=== PATIENT | male | born 1950 | race Caucasian/White ===

== ENCOUNTER 2017-03-17 02:08 | Inpatient (IN) | payer MEDICARE, BC ==
[2017-03-17] MEDS ORDERED: Sodium Chloride 0.9% 1,000 ML IV SCH ×3 (02:15→04:45)
[2017-03-17] MEDS ORDERED: Acetaminophen 325 MG Tab PO ONE (03:26)
--- NOTE | 2017-03-17 03:41 | EDM.PDOC ---
ED HPI GENERAL MEDICAL PROBLEM - General Chief Complaint: Abdominal Pain Stated Complaint: [facility] Time Seen by Provider: 03/17/17 03:39 Source of Information: Reports: Patient History Limitations: Reports: No Limitations - History of Present Illness INITIAL COMMENTS - FREE TEXT/NARRATIVE: pt arrived with a temp of 102. He has a history of necrotzing fascitis. Onset: Today, Gradual Duration: Hour(s): Location: Reports: Abdomen, Other (pt had pain in the left lower abdoman. ) Associated Symptoms: Reports: Fever/Chills, Weakness Abdominal Pain Score (Numeric/FACES): 5 - Related Data Allergies Allergy/AdvReac Type Severity Reaction Status Date / Time ciprofloxacin [From Cipro] Allergy Other Verified 03/17/17 02:16 sulfamethoxazole Allergy Rash Verified 03/17/17 02:16 [From Bactrim] trimethoprim [From Bactrim] Allergy Rash Verified 03/17/17 02:16 Past Medical History HEENT History: Reports: Impaired Vision Cardiovascular History: Reports: Afib, Arrhythmia, Heart Failure, Hypertension, Stents Respiratory History: Reports: COPD Genitourinary History: Reports: Chronic Renal Insuffiency, Other (See Below) Other Genitourinary History: sees a kidney specialist Musculoskeletal History: Reports: Other (See Below) Other Musculoskeletal History: necrotizing fasciitis right leg knee down to foot , has wrap on right leg for sores related to infection Endocrine/Metabolic History: Reports: Diabetes, Type II, Hypothyroidism, Obesity /BMI 30+ - Infectious Disease History Infectious Disease History: Reports: C-Difficile, Chicken Pox, MRSA, Mumps - Past Surgical History GI Surgical History: Reports: Colonoscopy, Hernia, Abdominal Dermatological Surgical History: Reports: Skin Graft Social & Family History - Tobacco Use Smoking Status *Q: Never Smoker - Caffeine Use Caffeine Use: Reports: None - Recreational Drug Use Recreational Drug Use: No ED ROS GENERAL - Review of Systems Review Of Systems: See Below Constitutional: Reports: Fever, Chills, Malaise HEENT: Reports: No Symptoms Respiratory: Reports: No Symptoms Cardiovascular: Reports: No Symptoms Endocrine: Reports: No Symptoms GI/Abdominal: Reports: Abdominal Pain, Other (pt has pain in the left lower abdoman, ) : Reports: No Symptoms Musculoskeletal: Reports: No Symptoms Skin: Reports: No Symptoms ED EXAM, GI/ABD - Physical Exam Exam: See Below Text/Narrative:: pt arrived chilling.he has a history of necrotizing fascitis of the rt leg. He still is dressing this on daily basis. He is having pain in his left lower abdoman. He has not vomited. Exam Limited By: No Limitations General Appearance: Alert, Moderate Distress Ears: Normal TMs Nose: Normal Inspection Throat/Mouth: Normal Inspection Head: Atraumatic Neck: Normal Inspection Respiratory/Chest: No Respiratory Distress Cardiovascular: Regular Rate, Rhythm, Tachycardia GI/Abdominal Exam: Soft, Other (he has a large ventral hernia that is reducable. He is tender in the left lower abdoman. ) (Male) Exam: Deferred Rectal (Males) Exam: Deferred Back Exam: Normal Inspection Extremities: Normal Inspection Neurological: Alert, Oriented, Normal Cognition, Other (pt is diaphoretic. ) Course - Vital Signs Last Recorded V/S: Last Vital Signs Temp 38.4 C H 03/17/17 02:13 Pulse 120 H 03/17/17 02:13 Resp 22 H 03/17/17 02:13 BP 173/69 H 03/17/17 02:13 Pulse Ox 94 L 03/17/17 02:13 - Orders/Labs/Meds Orders: Active Orders 24 hr Category Date Time Status Abdomen Pelvis wo Cont [CT] Stat Exams 03/17/17 03:06 Taken Chest 1V Frontal [CR] Stat Exams 03/17/17 03:51 Ordered CULTURE BLOOD [BC] Urgent Lab 03/17/17 02:15 Received CULTURE BLOOD [BC] Urgent Lab 03/17/17 02:25 Received Piperacillin/Tazobactam [Zosyn] 3.375 gm Med 03/17/17 04:45 Active Sodium Chloride 0.9% [Normal Saline] 50 ml IV Q6H Sodium Chloride 0.9% [Normal Saline] 1,000 ml Med 03/17/17 02:15 Active IV ASDIRECTED Sodium Chloride 0.9% [Normal Saline] 1,000 ml Med 03/17/17 02:15 Active IV ASDIRECTED Sodium Chloride 0.9% [Normal Saline] 1,000 ml Med 03/17/17 04:45 Active IV ASDIRECTED Blood Culture x2 Reflex Set [OM.PC] Urgent Oth 03/17/17 02:12 Ordered Medication Orders Sodium Chloride (Normal Saline) 1,000 mls @ 999 mls/hr IV ASDIRECTED JOHN Last Admin: 03/17/17 02:48 Dose: 999 mls/hr Sodium Chloride (Normal Saline) 1,000 mls @ 999 mls/hr IV ASDIRECTED JOHN Last Admin: 03/17/17 02:48 Dose: 999 mls/hr Sodium Chloride (Normal Saline) 1,000 mls @ 250 mls/hr IV ASDIRECTED JOHN Piperacillin Sod/Tazobactam (Sod 3.375 gm/ Sodium Chloride) 50 mls @ 100 mls/ hr IV Q6H [facility] Labs: Laboratory Tests 03/17/17 03/17/17 03/17/17 Range/Units 02:12 02:15 02:15 WBC 12.6 H (4.5-11.0) K/uL RBC 3.41 L (4.30-5.90) M/uL Hgb 10.5 L (12.0-15.0) g/dL Hct 33.2 L (40.0-54.0) % MCV 97 (80-98) fL MCH 31 (27-31) pg MCHC 32 (32-36) % Plt Count 122 L (150-400) K/uL Neut % (Auto) 90 H (36-66) % Lymph % (Auto) 4 L (24-44) % [place] % (Auto) 6 (2-6) % Eos % (Auto) 0 L (2-4) % Baso % (Auto) 0 (0-1) % Sodium 141 (140-148) mmol/L Potassium 5.7 H (3.6-5.2) mmol/L Chloride 108 (100-108) mmol/L Carbon Dioxide 21 (21-32) mmol/L Anion Gap 17.7 H (5.0-14.0) mmol/L BUN 61 H (7-18) mg/dL Creatinine 2.5 H (0.8-1.3) mg/dL Est Cr Clr Drug Dosing 30.96 mL/min Estimated GFR (MDRD) 26 L (>60) Glucose 190 H (74-106) mg/dL Lactic Acid (0.4-2.0) mmol/L Calcium 8.5 (8.5-10.1) mg/dL Total Bilirubin 0.3 (0.2-1.0) mg/dL AST 15 (15-37) U/L ALT 23 (12-78) U/L Alkaline Phosphatase 91 (46-116) U/L Total Protein 6.8 (6.4-8.2) g/dL Albumin 3.3 L (3.4-5.0) g/dL Globulin 3.5 (2.3-3.5) g/dL Albumin/Globulin Ratio 0.9 L (1.2-2.2) Lipase (73-393) U/L Urine Color Yellow Urine Appearance Clear Urine pH 5.0 (4.5-8.0) Ur Specific [place] 1.015 (1.008-1.030) Urine Protein 100 H (NEGATIVE) mg/dL Urine Glucose (UA) Normal (NEGATIVE) mg/dL Urine Ketones Negative (NEGATIVE) mg/dL Urine Occult Blood Large (NEGATIVE) Urine Nitrite Negative (NEGAITVE) Urine Bilirubin Negative (NEGATIVE) Urine Urobilinogen Normal (NORMAL) mg/dL Ur Leukocyte Esterase Negative (NEGATIVE) Urine RBC 0-5 (0-5) Urine WBC 0-5 (0-5) Ur Epithelial Cells Not seen Amorphous Sediment Not seen Urine Bacteria Not seen Urine Mucus Few Urine Other 03/17/17 03/17/17 Range/Units 02:15 03:24 WBC (4.5-11.0) K/uL RBC (4.30-5.90) M/uL Hgb (12.0-15.0) g/dL Hct (40.0-54.0) % MCV (80-98) fL MCH (27-31) pg MCHC (32-36) % Plt Count (150-400) K/uL Neut % (Auto) (36-66) % Lymph % (Auto) (24-44) % [place] % (Auto) (2-6) % Eos % (Auto) (2-4) % Baso % (Auto) (0-1) % Sodium (140-148) mmol/L Potassium (3.6-5.2) mmol/L Chloride (100-108) mmol/L Carbon Dioxide (21-32) mmol/L Anion Gap (5.0-14.0) mmol/L BUN (7-18) mg/dL Creatinine (0.8-1.3) mg/dL Est Cr Clr Drug Dosing mL/min Estimated GFR (MDRD) (>60) Glucose (74-106) mg/dL Lactic Acid 1.0 (0.4-2.0) mmol/L Calcium (8.5-10.1) mg/dL Total Bilirubin (0.2-1.0) mg/dL AST (15-37) U/L ALT (12-78) U/L Alkaline Phosphatase (46-116) U/L Total Protein (6.4-8.2) g/dL Albumin (3.4-5.0) g/dL Globulin (2.3-3.5) g/dL Albumin/Globulin Ratio (1.2-2.2) Lipase 182 (73-393) U/L Urine Color Urine Appearance Urine pH (4.5-8.0) Ur Specific [place] (1.008-1.030) Urine Protein (NEGATIVE) mg/dL Urine Glucose (UA) (NEGATIVE) mg/dL Urine Ketones (NEGATIVE) mg/dL Urine Occult Blood (NEGATIVE) Urine Nitrite (NEGAITVE) Urine Bilirubin (NEGATIVE) Urine Urobilinogen (NORMAL) mg/dL Ur Leukocyte Esterase (NEGATIVE) Urine RBC (0-5) Urine WBC (0-5) Ur Epithelial Cells Amorphous Sediment Urine Bacteria Urine Mucus Urine Other Meds: Medications Generic Name Dose Route Start Last Admin Trade Name Freq PRN Reason Stop Dose Admin Sodium Chloride 1,000 mls @ 999 mls/hr 03/17/17 02:15 03/17/17 02:48 Normal Saline IV 999 mls/hr ASDIRECTED JOHN Administration Sodium Chloride 1,000 mls @ 999 mls/hr 03/17/17 02:15 03/17/17 02:48 Normal Saline IV 999 mls/hr ASDIRECTED JOHN Administration Sodium Chloride 1,000 mls @ 250 mls/hr 03/17/17 04:45 Normal Saline IV ASDIRECTED JOHN Piperacillin Sod/Tazobactam 50 mls @ 100 mls/hr 03/17/17 04:45 Sod 3.375 gm/ Sodium Chloride IV Q6H JOHN Discontinued Medications Generic Name Dose Route Start Last Admin Trade Name Freq PRN Reason Stop Dose Admin Acetaminophen 650 mg 03/17/17 03:26 03/17/17 03:56 Tylenol PO 03/17/17 03:27 650 mg NOW ONE Administration - Re-Assessments/Exams Free Text/Narrative Re-Assessment/Exam: 03/17/17 04:31 pt had a wbc of 12,500. He has a k of 5.7. His crearnine is 2.5. We do not have previous labs.His temp is coming down. He was given 2 liters of fluid and then the iv was run at 250. Will start zosyn at this point. Departure - Departure Time of Disposition: 04:35 Disposition: Admitted As Inpatient 66 Condition: Fair Clinical Impression: Sepsis, Renal insufficiency, Hyperkalemia - Discharge Information Referrals: PCP,None [Primary Care Provider] - Forms: ED Department Discharge Care Plan Goals: admit for antibiotic therapy. - My Orders Last 24 Hours: My Active Orders 03/17/17 02:12 Blood Culture x2 Reflex Set [OM.PC] Urgent 03/17/17 02:15 CULTURE BLOOD [BC] Urgent Sodium Chloride 0.9% [Normal Saline] 1,000 ml IV ASDIRECTED Sodium Chloride 0.9% [Normal Saline] 1,000 ml IV ASDIRECTED 03/17/17 02:25 CULTURE BLOOD [BC] Urgent 03/17/17 03:06 Abdomen Pelvis wo Cont [CT] Stat 03/17/17 03:51 Chest 1V Frontal [CR] Stat 03/17/17 04:45 Piperacillin/Tazobactam [Zosyn] 3.375 gm Sodium Chloride 0.9% [Normal Saline] 50 ml IV Q6H Sodium Chloride 0.9% [Normal Saline] 1,000 ml IV ASDIRECTED - Assessment/Plan Last 24 Hours: My Active Orders 03/17/17 02:12 Blood Culture x2 Reflex Set [OM.PC] Urgent 03/17/17 02:15 CULTURE BLOOD [BC] Urgent Sodium Chloride 0.9% [Normal Saline] 1,000 ml IV ASDIRECTED Sodium Chloride 0.9% [Normal Saline] 1,000 ml IV ASDIRECTED 03/17/17 02:25 CULTURE BLOOD [BC] Urgent 03/17/17 03:06 Abdomen Pelvis wo Cont [CT] Stat 03/17/17 03:51 Chest 1V Frontal [CR] Stat 03/17/17 04:45 Piperacillin/Tazobactam [Zosyn] 3.375 gm Sodium Chloride 0.9% [Normal Saline] 50 ml IV Q6H Sodium Chloride 0.9% [Normal Saline] 1,000 ml IV ASDIRECTED
[2017-03-17] MEDS ORDERED: Piperacillin/Tazobactam 3.375 GM in Sodium Chloride 0.9% 50 ML IV SCH ×2 (04:45→12:00)
[2017-03-17] MEDS ORDERED: Ondansetron 4 MG Tab.DIS PO PRN (05:03)
--- NOTE | 2017-03-17 05:19 | PCM.HP ---
H&P History of Present Illness - General Date of Service: 03/17/17 Admit Problem/Dx: Admission Diagnosis/Problem Admission Diagnosis/Problem Sepsis Sepsis Source of Information: Patient History Limitations: Reports: No Limitations - History of Present Illness Initial Comments - Free Text/Narative: 66-year-old male with past medical history of necrotizing fasciitis status post surgical debridement 8 years ago with a recurrent leg infections, CAD status post 3 stents last a stent placed 14 years ago following with cardiology , CKD with baseline creatinine is 2.4 following with nephrology, diabetes on insulin, hyperlipidemia, hypertension, atrial fibrillation on Coumadin 10 mg on Friday and 5 mg on , Friday, Friday, Friday, GERD, obesity came to the ED with the complaining of right leg pain and the left lower quadrant pain which started since yesterday morning. Patient reports that the pain is 4-5/10 intensity in the abdomen. Patient also had 2-3 episodes of vomiting. Patient denies any diarrhea, constipation. Patient denies any chest pain, exertional chest pain, breathing difficulty, headaches, dizziness, palpitations, orthopnea, PND. Patient is passing gas. Denies any blood in the stool, blood in the urine. Patient reports that his leg pain is the same 3-4/10 intensity has drainage from the tip of the middle three fingers. No significant redness is noted. Patient had multiple hospital admissions with right leg infection last admission was 1 month ago and diagnosed with septicemia. In the ED patient had lab work which showed WBC count is elevated but lactic acid is 1.0. Patient received fluid resuscitation in the ED and started him on Zosyn. Patient CODE STATUS is full code. Other review of systems are not significant. Abdominal Pain Score (Numeric/FACES): 5 - Related Data Allergies/Adverse Reactions: Allergies Allergy/AdvReac Type Severity Reaction Status Date / Time ciprofloxacin [From Cipro] Allergy Other Verified 03/17/17 02:16 sulfamethoxazole Allergy Rash Verified 03/17/17 02:16 [From Bactrim] trimethoprim [From Bactrim] Allergy Rash Verified 03/17/17 02:16 Home Medications: Home Meds Acetaminophen 500 mg PO Q6H PRN 03/17/17 [History] Albuterol [Ventolin HFA] 03/17/17 [History] Allopurinol [Zyloprim] 300 mg PO DAILY 03/17/17 [History] Ascorbic Acid [Vitamin C] 500 mg PO ASDIRECTED 03/17/17 [History] Aspirin 325 mg PO DAILY 03/17/17 [History] Benazepril [Lotensin] 5 mg PO DAILY 03/17/17 [History] Cholecalciferol (Vitamin D3) [Vitamin D3] 10,000 unit PO DAILY 03/17/17 [History ] Ferrous Sulfate 324 mg PO BID 03/17/17 [History] Furosemide [Lasix] 40 mg PO BID 03/17/17 [History] Insulin Aspart [Novolog Flexpen] 15 units SUBCNJ TIDAC 03/17/17 [History] Insulin Glarg,Human.Rec.Analog [Lantus Solostar] 30 units SUBCNJ BEDTIME [History] Levothyroxine 75 mcg PO DAILY 03/17/17 [History] Metoprolol Succinate [Toprol XL 100mg] 100 mg PO BID 03/17/17 [History] Multivitamin [Multivitamins] 1 tab PO DAILY 03/17/17 [History] Omeprazole 20 mg PO DAILY 03/17/17 [History] Pravastatin [Pravachol] 40 mg PO DAILY 03/17/17 [History] Sodium Bicarbonate 1,300 mg PO BID 03/17/17 [History] Triamcinolone Acetonide [Kenalog 0.1% Crm] 1 appful TOP ASDIRECTED 03/17/17 [ History] amLODIPine [Norvasc] 5 mg PO DAILY 03/17/17 [History] cloNIDine HCl [Catapres] 1.2 mg PO BID 03/17/17 [History] Past Medical History HEENT History: Reports: Impaired Vision Cardiovascular History: Reports: Afib, Arrhythmia, Heart Failure, Hypertension, Stents Respiratory History: Reports: COPD Genitourinary History: Reports: Chronic Renal Insuffiency, Other (See Below) Other Genitourinary History: sees a kidney specialist Musculoskeletal History: Reports: Other (See Below) Other Musculoskeletal History: necrotizing fasciitis right leg knee down to foot , has wrap on right leg for sores related to infection Endocrine/Metabolic History: Reports: Diabetes, Type II, Hypothyroidism, Obesity /BMI 30+ - Infectious Disease History Infectious Disease History: Reports: C-Difficile, Chicken Pox, MRSA, Mumps - Past Surgical History GI Surgical History: Reports: Colonoscopy, Hernia, Abdominal Dermatological Surgical History: Reports: Skin Graft Social & Family History - Tobacco Use Smoking Status *Q: Never Smoker - Caffeine Use Caffeine Use: Reports: None - Recreational Drug Use Recreational Drug Use: No H&P Review of Systems - Review of Systems: Review Of Systems: See Below General: Reports: Fever, Chills, Malaise Pulmonary: Denies: Shortness of Breath, Wheezing Cardiovascular: Denies: Chest Pain, Palpitations, Dyspnea on Exertion, Orthopnea , PND Gastrointestinal: Reports: Abdominal Pain, Nausea, Vomiting. Denies: Anorexia, Black Stool, Bloody Stool, Constipation, Diarrhea, Decreased Appetite, Mucous in Stool Genitourinary: Denies: Dysuria, Frequency, Burning Musculoskeletal: Denies: Neck Pain, Shoulder Pain Skin: Denies: Cyanosis, Jaundice Psychiatric: Denies: Confusion, Depression Hematologic/Lymphatic: Denies: Anemia, Easy Bleeding Immunologic: Denies: Anaphylaxis Exam - Exam Exam: See Below - Vital Signs Vital Signs: Last Vital Signs Temp 37.7 C 03/17/17 04:46 Pulse 123 H 03/17/17 04:46 Resp 21 H 03/17/17 04:46 BP 138/57 L 03/17/17 04:46 Pulse Ox 94 L 03/17/17 02:13 Weight: 137.892 kg - Exam Quality Assessment: No: Supplemental Oxygen General: Alert, Oriented Neck: Supple Lungs: Clear to Auscultation, Normal Respiratory Effort Cardiovascular: No: Regular Rate, Regular Rhythm, Tachycardia GI/Abdominal Exam: Normal Bowel Sounds, Soft, Non-Tender, No Abnormal Bruit, No Mass. No: Guarding, Rigid, Rebound Extremities: Other (Wound dressing is in place on right lower extremity, necrotizing fascitis status post surgical debridement) - Patient Data Lab Results Last 24 hrs: Laboratory Results - last 24 hr 03/17/17 03/17/17 03/17/17 Range/Units 02:12 02:15 02:15 WBC 12.6 H (4.5-11.0) K/uL RBC 3.41 L (4.30-5.90) M/uL Hgb 10.5 L (12.0-15.0) g/dL Hct 33.2 L (40.0-54.0) % MCV 97 (80-98) fL MCH 31 (27-31) pg MCHC 32 (32-36) % Plt Count 122 L (150-400) K/uL Neut % (Auto) 90 H (36-66) % Lymph % (Auto) 4 L (24-44) % [place]ender % (Auto) 6 (2-6) % Eos % (Auto) 0 L (2-4) % Baso % (Auto) 0 (0-1) % PT (9.5-12.0) sec INR (0.80-1.20) Sodium 141 (140-148) mmol/L Potassium 5.7 H (3.6-5.2) mmol/L Chloride 108 (100-108) mmol/L Carbon Dioxide 21 (21-32) mmol/L Anion Gap 17.7 H (5.0-14.0) mmol/L BUN 61 H (7-18) mg/dL Creatinine 2.5 H (0.8-1.3) mg/dL Est Cr Clr Drug Dosing 30.96 mL/min Estimated GFR (MDRD) 26 L (>60) Glucose 190 H (74-106) mg/dL Lactic Acid (0.4-2.0) mmol/L Calcium 8.5 (8.5-10.1) mg/dL Total Bilirubin 0.3 (0.2-1.0) mg/dL AST 15 (15-37) U/L ALT 23 (12-78) U/L Alkaline Phosphatase 91 (46-116) U/L Total Protein 6.8 (6.4-8.2) g/dL Albumin 3.3 L (3.4-5.0) g/dL Globulin 3.5 (2.3-3.5) g/dL Albumin/Globulin Ratio 0.9 L (1.2-2.2) Lipase (73-393) U/L Urine Color Yellow Urine Appearance Clear Urine pH 5.0 (4.5-8.0) Ur Specific [place] 1.015 (1.008-1.030) Urine Protein 100 H (NEGATIVE) mg/dL Urine Glucose (UA) Normal (NEGATIVE) mg/dL Urine Ketones Negative (NEGATIVE) mg/dL Urine Occult Blood Large (NEGATIVE) Urine Nitrite Negative (NEGAITVE) Urine Bilirubin Negative (NEGATIVE) Urine Urobilinogen Normal (NORMAL) mg/dL Ur Leukocyte Esterase Negative (NEGATIVE) Urine RBC 0-5 (0-5) Urine WBC 0-5 (0-5) Ur Epithelial Cells Not seen Amorphous Sediment Not seen Urine Bacteria Not seen Urine Mucus Few Urine Other 03/17/17 03/17/17 03/17/17 Range/Units 02:15 03:24 04:40 WBC (4.5-11.0) K/uL RBC (4.30-5.90) M/uL Hgb (12.0-15.0) g/dL Hct (40.0-54.0) % MCV (80-98) fL MCH (27-31) pg MCHC (32-36) % Plt Count (150-400) K/uL Neut % (Auto) (36-66) % Lymph % (Auto) (24-44) % Pender % (Auto) (2-6) % Eos % (Auto) (2-4) % Baso % (Auto) (0-1) % PT 29.4 H (9.5-12.0) sec INR 2.64 H (0.80-1.20) Sodium (140-148) mmol/L Potassium (3.6-5.2) mmol/L Chloride (100-108) mmol/L Carbon Dioxide (21-32) mmol/L Anion Gap (5.0-14.0) mmol/L BUN (7-18) mg/dL Creatinine (0.8-1.3) mg/dL Est Cr Clr Drug Dosing mL/min Estimated GFR (MDRD) (>60) Glucose (74-106) mg/dL Lactic Acid 1.0 (0.4-2.0) mmol/L Calcium (8.5-10.1) mg/dL Total Bilirubin (0.2-1.0) mg/dL AST (15-37) U/L ALT (12-78) U/L Alkaline Phosphatase (46-116) U/L Total Protein (6.4-8.2) g/dL Albumin (3.4-5.0) g/dL Globulin (2.3-3.5) g/dL Albumin/Globulin Ratio (1.2-2.2) Lipase 182 (73-393) U/L Urine Color Urine Appearance Urine pH (4.5-8.0) Ur Specific [place] (1.008-1.030) Urine Protein (NEGATIVE) mg/dL Urine Glucose (UA) (NEGATIVE) mg/dL Urine Ketones (NEGATIVE) mg/dL Urine Occult Blood (NEGATIVE) Urine Nitrite (NEGAITVE) Urine Bilirubin (NEGATIVE) Urine Urobilinogen (NORMAL) mg/dL Ur Leukocyte Esterase (NEGATIVE) Urine RBC (0-5) Urine WBC (0-5) Ur Epithelial Cells Amorphous Sediment Urine Bacteria Urine Mucus Urine Other Result Diagrams: 03/17/17 02:15 03/17/17 02:15 *Q Meaningful Use (ADM) - VTE *Q VTE Criteria *Q: - Stroke *Q Stroke Criteria *Q: - AMI *Q AMI Criteria *Q: - Problem List (1) Abdominal pain SNOMED Code(s): 56245138 ICD Code: R10.9 - UNSPECIFIED ABDOMINAL PAIN Status: Acute Current Visit : Yes (2) Right leg pain SNOMED Code(s): 246136555 ICD Code: M79.604 - PAIN IN RIGHT LEG Status: Acute Current Visit: Yes (3) Necrotizing fasciitis SNOMED Code(s): 23129397 ICD Code: M72.6 - NECROTIZING FASCIITIS Status: Acute Current Visit: Yes (4) Fever chills SNOMED Code(s): 678845902 ICD Code: R50.9 - FEVER, UNSPECIFIED Status: Acute Current Visit: Yes (5) CKD (chronic kidney disease) SNOMED Code(s): 032887609 ICD Code: N18.9 - CHRONIC KIDNEY DISEASE, UNSPECIFIED Status: Acute Current Visit: Yes (6) CAD (coronary artery disease) SNOMED Code(s): 44400449 ICD Code: I25.10 - ATHSCL HEART DISEASE OF [place] CORONARY ARTERY W/O ANG PCTRS Status: Acute Current Visit: Yes (7) AF (atrial fibrillation) SNOMED Code(s): 53056460 ICD Code: I48.91 - UNSPECIFIED ATRIAL FIBRILLATION Status: Acute Current Visit: Yes (8) DM (diabetes mellitus) SNOMED Code(s): 55153614 ICD Code: E11.9 - TYPE 2 DIABETES MELLITUS WITHOUT COMPLICATIONS Status: Acute Current Visit: Yes (9) Hyperlipemia SNOMED Code(s): 25828094 ICD Code: E78.5 - HYPERLIPIDEMIA, UNSPECIFIED Status: Acute Current Visit : Yes (10) GERD (gastroesophageal reflux disease) SNOMED Code(s): 302594164 ICD Code: K21.9 - GASTRO-ESOPHAGEAL REFLUX DISEASE WITHOUT ESOPHAGITIS Status: Acute Current Visit: Yes (11) Sepsis SNOMED Code(s): 30015027 ICD Code: A41.9 - SEPSIS, UNSPECIFIED ORGANISM Status: Acute Current Visit: Yes Problem List Initiated/Reviewed/Updated: Yes Orders Last 24hrs: Active Orders 24 hr Category Date Time Status Patient Status [ADT] Routine ADT 03/17/17 05:04 Ordered Cardiac Monitoring [RC] CONTINUOUS Care 03/17/17 05:05 Ordered Height and Weight [RC] DAILY Care 03/17/17 05:03 Ordered Intake and Output [RC] QSHIFT Care 03/17/17 05:05 Ordered Notify Provider Consults [RC] ASDIRECTED Care 03/17/17 05:10 Ordered Oxygen Therapy [RC] PRN Care 03/17/17 05:04 Ordered Pulse Oximetry [RC] CONTINUOUS Care 03/17/17 05:05 Ordered VTE/DVT Education [RC] Per Unit Routine Care 03/17/17 05:04 Ordered Vital Signs [RC] Q4H Care 03/17/17 05:04 Ordered Consult to Pharmacy [CONS] Routine Cons 03/17/17 05:14 Ordered Consult to Physician [CONS] Routine Cons 03/17/17 05:08 Ordered OT Evaluation and Treatment [CONS] Routine Cons 03/17/17 05:08 Ordered PT Evaluation and Treatment [CONS] Routine Cons 03/17/17 05:08 Ordered 2 Gram Sodium Diet [DIET] Diet 03/17/17 Breakfast Ordered Abdomen Pelvis wo Cont [CT] Stat Exams 03/17/17 03:06 Taken Chest 1V Frontal [CR] Stat Exams 03/17/17 03:51 Taken CBC WITH AUTO DIFF [HEME] AM Lab 03/18/17 05:11 Ordered COMPREHENSIVE METABOLIC PN,CMP [CHEM] AM Lab 03/18/17 05:11 Ordered CREATINE KINASE,CK [CHEM] Stat Lab 03/17/17 05:03 Ordered CULTURE BLOOD [BC] Urgent Lab 03/17/17 02:15 Received CULTURE BLOOD [BC] Urgent Lab 03/17/17 02:25 Received INR,PT,PROTHROMBIN TIME [COAG] Routine Lab 03/18/17 05:11 Ordered MAGNESIUM [CHEM] Routine Lab 03/17/17 05:03 Ordered Acetaminophen/HYDROcodone [[place] 325-5 MG] Med 03/17/17 05:03 Ordered 1 tab PO Q4H PRN Docusate Sodium/Sennosides [Senna Plus] Med 03/17/17 05:03 Ordered 1 tab PO BID PRN Heparin Sodium Med 03/17/17 05:15 Ordered 5,000 units SUBCUT Q8H Insulin Detemir [Levemir] Med 03/17/17 21:00 Ordered 15 unit SUBCUT BEDTIME Insulin Lispro [HumaLOG] Med 03/17/17 07:30 Ordered See Protocol SUBCUT BIDAC Ondansetron [Zofran ODT] Med 03/17/17 05:03 Ordered 4 mg PO Q6H PRN Piperacillin/Tazobactam [Zosyn] 3.375 gm Med 03/17/17 04:45 Active Sodium Chloride 0.9% [Normal Saline] 50 ml IV Q6H Sodium Chloride 0.9% [Normal Saline] 1,000 ml Med 03/17/17 02:15 Active IV ASDIRECTED Sodium Chloride 0.9% [Normal Saline] 1,000 ml Med 03/17/17 02:15 Active IV ASDIRECTED Sodium Chloride 0.9% [Normal Saline] 1,000 ml Med 03/17/17 04:45 Active IV ASDIRECTED Vancomycin 1 gm Med 03/17/17 06:00 Ordered Sodium Chloride 0.9% [Normal Saline] 250 ml IV Q24H Blood Culture x2 Reflex Set [OM.PC] Urgent Oth 03/17/17 02:12 Ordered Resuscitation Status Routine Resus Stat 03/17/17 05:03 Ordered Medication Orders Hydrocodone Bitart/Acetaminophen ([place] 325-5 Mg) 1 tab PO Q4H PRN PRN Reason: Pain (moderate 4-6) Heparin Sodium (Porcine) (Heparin Sodium) 5,000 units SUBCUT Q8H JOHN Sodium Chloride (Normal Saline) 1,000 mls @ 150 mls/hr IV ASDIRECTED JOHN Last Admin: 03/17/17 02:48 Dose: 999 mls/hr Sodium Chloride (Normal Saline) 1,000 mls @ 999 mls/hr IV ASDIRECTED JOHN Last Admin: 03/17/17 02:48 Dose: 999 mls/hr Sodium Chloride (Normal Saline) 1,000 mls @ 250 mls/hr IV ASDIRECTED JOHN Last Admin: 03/17/17 04:00 Dose: 250 mls/hr Piperacillin Sod/Tazobactam (Sod 3.375 gm/ Sodium Chloride) 50 mls @ 100 mls/ hr IV Q6H [facility] Last Admin: 03/17/17 05:07 Dose: 100 mls/hr Vancomycin HCl 1 gm/ Sodium (Chloride) 250 mls @ 150 mls/hr IV Q24H [facility] Insulin Detemir (Levemir) 15 unit SUBCUT BEDTIME [facility] Insulin Human Lispro (Humalog) 0 unit SUBCUT BIDAC [facility] PRN Reason: Protocol Ondansetron HCl (Zofran Odt) 4 mg PO Q6H PRN PRN Reason: Nausea able to take PO Senna/Docusate Sodium (Senna Plus) 1 tab PO BID PRN PRN Reason: Constipation Assessment/Plan Comment:: 66-year-old male with past medical history of necrotizing fasciitis status post surgical debridement 8 years ago with a recurrent leg infections, CAD status post 3 stents last a stent placed 14 years ago following with cardiology , CKD with baseline creatinine is 2.4 following with nephrology, diabetes on insulin, hyperlipidemia, hypertension, atrial fibrillation on Coumadin 10 mg on Friday and 5 mg on , Friday, Friday, Friday, GERD, obesity came to the ED with the complaining of right leg pain and the left lower quadrant pain and admitted with sepsis (1) Abdominal pain (2) Right leg pain (11) Sepsis (3) Necrotizing fasciitis (4) Fever chills Unknown etiology, WBC count is elevated seems like leg infection Will start him on Zosyn, vancomycin CT abdomen pelvis is at baseline no acute infective signs are noted We'll continue fluid resuscitation Repeat CBC CMP tomorrow Will follow blood cultures, urine culture Consulted surgery for wound care Consulted PT and OT (5) CKD (chronic kidney disease) (6) CAD (coronary artery disease) (7) AF (atrial fibrillation) (9) Hyperlipemia Will continue home medications Will continue Coumadin at this point (8) DM (diabetes mellitus) Patient has been on 30 units of Lantus and 15 untis of lispro with each meals Will place him on 15 units of Lantus at bedtime with low-dose sliding scale insulin (10) GERD (gastroesophageal reflux disease) Will continue home medications DVT prophylaxis Coumadin CODE STATUS full code IV fluids NS 150 mL per hour Diet 2 g low sodium diet GI prophylaxis pantoprazole 40 mg daily
[2017-03-17] MEDS ORDERED: Warfarin 5 MG Tab PO SCH ×4 (05:45→16:00)
[2017-03-17] MEDS ORDERED: Heparin Sodium 5,000 Units/ML Vial SUBCUT SCH (06:00)
[2017-03-17] MEDS ORDERED: Insulin Lispro 100 Units/ML 3 ML Vial SUBCUT SCH (07:30)
[2017-03-17] MEDS: Metoprolol Succinate 50 MG Tab.ER PO SCH ×3 (08:31→20:04)
[2017-03-17] MEDS: Acetaminophen 500 MG Tab PO PRN ×2 (08:55→18:36)
[2017-03-17] MEDS: Pantoprazole 40 MG Tab.CR PO SCH (08:56)
[2017-03-17] MEDS: Insulin Aspart 100 Units/ML 3 ML Pen SUBCUT SCH ×5 (08:59→23:01)
[2017-03-17] MEDS: Linezolid 600 MG in Premix Bag 1 BAG IV SCH ×2 (08:59→20:05)
[2017-03-17] MEDS ORDERED: Metoprolol Succinate 50 MG Tab.ER PO SCH (09:00)
[2017-03-17] MEDS ORDERED: Non-Formulary Medication 1 Each (Aspirin [Aspirin] 325 MG) PO SCH (11:30)
--- NOTE | 2017-03-17 11:50 | PCM.PN ---
- General Info Date of Service: 03/17/17 Subjective Update: Mr. Epstein is a 66-year-old gentleman who was admitted early this morning with cellulitis of his right lower extremity and sepsis. He has a history of recurrent infections in his right lower extremity including necrotizing fasciitis. He is also had a history of MRSA infection in the leg. He developed increased pain in the leg associated with fever and weakness as well as pain in the abdomen. White blood cell count was found to be elevated, lactic acid level within normal range. Did have elevation in heart rate, but stable blood pressure. CT scan of the abdomen showed no evidence of intra-abdominal infection. He was started on broad-spectrum IV antibiotic therapy after cultures were obtained. This morning is been seen by Dr. Thomas and dressing placed on the leg plan for daily dressing changes. Functional Status: Reports: Pain Controlled, Tolerating Diet - Review of Systems General: Reports: Fever, Weakness Pulmonary: Reports: No Symptoms Cardiovascular: Reports: No Symptoms Gastrointestinal: Reports: No Symptoms Musculoskeletal: Reports: Leg Pain - Patient Data Vitals - Most Recent: Last Vital Signs Temp 100.2 F 03/17/17 06:04 Pulse 100 03/17/17 08:56 Resp 18 03/17/17 06:04 BP 160/60 H 03/17/17 08:56 Pulse Ox 95 03/17/17 07:36 Weight - Most Recent: 297 lb 3 oz I&O - Last 24 Hours: Intake & Output 03/16/17 03/17/17 03/17/17 22:59 06:59 14:59 Intake Total 250 480 Output Total 500 Balance 250 -20 Med Orders - Current: Current Medications Acetaminophen (Tylenol Extra Strength) 1,000 mg PO Q6H PRN PRN Reason: Pain Last Admin: 03/17/17 08:55 Dose: 1,000 mg Hydrocodone Bitart/Acetaminophen ([place] 325-5 Mg) 1 tab PO Q4H PRN PRN Reason: Pain (moderate 4-6) Allopurinol (Zyloprim) 300 mg PO DAILY JONH Amlodipine Besylate (Norvasc) 5 mg PO DAILY JOHN Aspirin (Ecotrin) 325 mg PO DAILY JOHN Ferrous Sulfate (Ferrous Sulfate) 325 mg PO BIDMEALS JOHN Linezolid 600 mg/ Premix 300 mls @ 300 mls/hr IV Q12H JOHN Last Admin: 03/17/17 08:59 Dose: 300 mls/hr Magnesium Sulfate 2 gm/ Premix 50 mls @ 25 mls/hr IV ONETIME ONE Stop: 03/17/17 13:59 Sodium Chloride (Normal Saline) 1,000 mls @ 100 mls/hr IV ASDIRECTED COUNTS INCLUDE 234 BEDS AT THE [facility] Piperacillin/Tazobactam/ (Dextrose 3.375 gm/ Premix) 50 mls @ 100 mls/hr IV Q6H COUNTS INCLUDE 234 BEDS AT THE [facility] Insulin Aspart (Novolog) 0 unit SUBCUT BIDAC COUNTS INCLUDE 234 BEDS AT THE [facility] PRN Reason: Protocol Last Admin: 03/17/17 08:59 Dose: 1 units Insulin Aspart (Novolog) 15 unit SUBCUT TIDAC COUNTS INCLUDE 234 BEDS AT THE [facility] Insulin Detemir (Levemir) 30 unit SUBCUT BEDTIME COUNTS INCLUDE 234 BEDS AT THE [facility] Levothyroxine Sodium (Levothyroxine) 75 mcg PO ACBREAKFAST COUNTS INCLUDE 234 BEDS AT THE [facility] Magnesium Oxide (Magnesium Oxide) 400 mg PO BID COUNTS INCLUDE 234 BEDS AT THE [facility] Metoprolol Succinate (Toprol Xl) 100 mg PO DAILY COUNTS INCLUDE 234 BEDS AT THE [facility] Last Admin: 03/17/17 08:56 Dose: 100 mg Non-Formulary Medication (Benazepril [Lotensin]) 5 mg PO DAILY COUNTS INCLUDE 234 BEDS AT THE [facility] Non-Formulary Medication (Clonidine Hcl [Catapres]) 1.2 mg PO BID COUNTS INCLUDE 234 BEDS AT THE [facility] Ondansetron HCl (Zofran Odt) 4 mg PO Q6H PRN PRN Reason: Nausea able to take PO Pantoprazole Sodium (Protonix) 40 mg PO ACBREAKFAST COUNTS INCLUDE 234 BEDS AT THE [facility] Last Admin: 03/17/17 08:56 Dose: 40 mg Pravastatin Sodium (Pravachol) 40 mg PO BEDTIME COUNTS INCLUDE 234 BEDS AT THE [facility] Senna/Docusate Sodium (Senna Plus) 1 tab PO BID PRN PRN Reason: Constipation Sodium Bicarbonate (Sodium Bicarbonate) 1,300 mg PO BID COUNTS INCLUDE 234 BEDS AT THE [facility] Warfarin Sodium (Coumadin) 5 mg PO ASDIRECTED COUNTS INCLUDE 234 BEDS AT THE [facility] Warfarin Sodium (Coumadin) 10 mg PO ASDIRECTED COUNTS INCLUDE 234 BEDS AT THE [facility] Discontinued Medications Acetaminophen (Tylenol) 650 mg PO NOW ONE Stop: 03/17/17 03:27 Last Admin: 03/17/17 03:56 Dose: 650 mg Heparin Sodium (Porcine) (Heparin Sodium) 5,000 units SUBCUT Q8H COUNTS INCLUDE 234 BEDS AT THE [facility] Last Admin: 03/17/17 06:09 Dose: 5,000 units Sodium Chloride (Normal Saline) 1,000 mls @ 150 mls/hr IV ASDIRECTED COUNTS INCLUDE 234 BEDS AT THE [facility] Last Admin: 03/17/17 02:48 Dose: 999 mls/hr Sodium Chloride (Normal Saline) 1,000 mls @ 999 mls/hr IV ASDIRECTED COUNTS INCLUDE 234 BEDS AT THE [facility] Last Admin: 03/17/17 02:48 Dose: 999 mls/hr Sodium Chloride (Normal Saline) 1,000 mls @ 250 mls/hr IV ASDIRECTED COUNTS INCLUDE 234 BEDS AT THE [facility] Last Admin: 03/17/17 04:00 Dose: 250 mls/hr Piperacillin Sod/Tazobactam (Sod 3.375 gm/ Sodium Chloride) 50 mls @ 100 mls/ hr IV Q6H COUNTS INCLUDE 234 BEDS AT THE [facility] Last Admin: 03/17/17 05:07 Dose: 100 mls/hr Vancomycin HCl 1 gm/ Sodium (Chloride) 250 mls @ 150 mls/hr IV Q24H COUNTS INCLUDE 234 BEDS AT THE [facility] Last Admin: 03/17/17 06:10 Dose: 150 mls/hr Insulin Human Lispro (Humalog) 0 unit SUBCUT BIDAC COUNTS INCLUDE 234 BEDS AT THE [facility] PRN Reason: Protocol Warfarin Sodium (Coumadin) 10 mg PO ASDIRECTED COUNTS INCLUDE 234 BEDS AT THE [facility] - Exam Quality Assessment: DVT Prophylaxis General: Alert, Oriented, Cooperative, Mild Distress Lungs: Clear to Auscultation, Normal Respiratory Effort Cardiovascular: Regular Rate, Regular Rhythm, No Murmurs GI/Abdominal Exam: Soft, Non-Tender, No Organomegaly, No Distention Extremities: Non-Tender, Pedal Edema Skin: Warm, Dry - Problem List Review Problem List Initiated/Reviewed/Updated: Yes - My Orders Last 24 Hours: My Active Orders 03/17/17 11:22 POTASSIUM,K [CHEM] Urgent Magnesium Sulfate/Water [Magnesium Sulfate 2 GM in Water 50 ML] 2 gm Premix Bag 1 bag IV ONETIME 03/17/17 11:30 Levothyroxine 75 mcg PO DAILY Magnesium Oxide 400 mg PO BID Sodium Chloride 0.9% @ 100 MLS/HR(1000ml) Sodium Chloride 0.9% [Normal Saline] 1 ,000 ml IV ASDIRECTED 03/17/17 12:00 Aspirin [Ecotrin] 325 mg PO DAILY Insulin Aspart [NovoLOG] 15 unit SUBCUT TIDAC 03/17/17 17:00 Ferrous Sulfate 325 mg PO BIDMEALS 03/17/17 21:00 Insulin Detemir [Levemir] 30 unit SUBCUT BEDTIME Pravastatin [Pravachol] 40 mg PO BEDTIME Sodium Bicarbonate 1,300 mg PO BID cloNIDine HCl [Catapres] 1.2 mg PO BID 03/18/17 05:00 MAGNESIUM [CHEM] Timed 03/18/17 09:00 Allopurinol [Zyloprim] 300 mg PO DAILY Benazepril [Lotensin] 5 mg PO DAILY amLODIPine [Norvasc] 5 mg PO DAILY - Plan Plan:: ASSESSMENT AND PLAN CELLULITIS RIGHT LOWER EXTREMITY-probable component of early sepsis. History of recurrent infections including MRSA and necrotizing fasciitis. Chronic lymphedema involving the extremity likely a contributing factor to recurrent infections. -Continue broad-spectrum IV antibiotic therapy pending culture results -Continue IV fluids until a.m., decrease rate to 100 mL per hour HYPERKALEMIA-likely secondary to chronic kidney disease -IV fluids for hydration -Repeat potassium level now and in a.m. CHRONIC KIDNEY DISEASE STAGE III-likely exacerbated secondary to dehydration -Closely monitor urine output and renal function during hospital stay TYPE 2 DIABETES MELLITUS -4 times a day glucometers -Continue usual dose of long-acting insulin -Low-dose sliding scale NovoLog -NovoLog 15 units subcutaneous with each meal MAINTENANCE ISSUES -DVT prophylaxis; current therapy with warfarin should provide adequate DVT prophylaxis -GI prophylaxis; continue PPI therapy -Jacobo catheter; not indicated -Nutrition; consistent carb diet -Nicotine dependence; not required CODE STATUS-FULL CODE ADMISSION STATUS-patient will be admitted to inpatient status, expect at least a 2 night hospital stay for evaluation and management of problems as outlined above. At the time of this admission I do not reasonably expected evaluation and management of this problem will require more than a 96 hour hospital stay. DISPOSITION-anticipate discharge to home after the hospital stay. PRIMARY CARE PROVIDER-
[2017-03-17] MEDS ORDERED: Magnesium Sulfate/Water 2 GM in Premix Bag 1 BAG IV ONE (12:00)
[2017-03-17] MEDS: Piperacillin/Tazobactam/Dext 3.375 GM in Premix Bag 1 BAG IV SCH ×2 (12:05→18:24)
[2017-03-17] MEDS: Magnesium Oxide 400 MG Tab PO SCH ×2 (12:06→20:03)
[2017-03-17] MEDS: Levothyroxine 75 MCG Tab PO SCH (12:06)
[2017-03-17] MEDS: Aspirin 325 MG Tab.EC PO SCH (12:06)
--- NOTE | 2017-03-17 12:25 | PROC ---
DATE OF PROCEDURE: 03/17/2017 PREOPERATIVE DIAGNOSES: Acute exacerbation of chronic edema and cellulitis of right foot and calf. POSTOPERATIVE DIAGNOSES: Acute exacerbation of chronic edema and cellulitis of right foot and calf. PROCEDURE: Application of pressure wrap to the right foot and calf ([id number]). INDICATION FOR PROCEDURE: Please see progress note dictated today. DETAILS OF PROCEDURE: In the hospital bed, initially the left foot beginning at the base of the toe up to the upper calf was wrapped with Kerlix. Following this, a 4-inch Garfield wrap was placed over that same area, placed fairly firmly to try to get some edema out of those areas, and the patient appeared to be tolerating that degree of pressure satisfactorily. We will plan to repeat that daily until discharged at which time we will probably put him in an Unna boot. Brett Thomas MD /[id number]
[2017-03-17] MEDS ORDERED: Sodium Polystyrene Sulfonate 15 GM/60 ML Susp 60 ML Bot PO ONE (12:35)
[2017-03-17] MEDS ORDERED: Insulin Aspart 100 Units/ML 3 ML Pen SUBCUT SCH (16:00)
[2017-03-17] MEDS: Sodium Chloride 0.9% 1,000 ML IV SCH (16:21)
--- NOTE | 2017-03-17 17:04 | HP ---
HISTORY OF PRESENT ILLNESS: This is a 66-year-old male presenting with fever and lower abdominal pain associated with increasing swelling and redness in his right lower leg. The patient has history of necrotizing fasciitis around eight years ago and has had problems with intermittent infections in the right foot and calf. Since that time, he has been using some of the external pressure apparatus, but still has quite a bit delay as well as marked swelling. He presents now with what appears to be cellulitis involving the leg. He was started empirically in the emergency room on Zyvox and vancomycin and cultures are pending on. Clinically, this appears to be stable. This morning he did have a temperature of 101 on admission. The plan at this point will be to switch from the vancomycin to Zyvox as this will have much better soft tissue coverage than vancomycin given the fact that we are dealing with Staph type organism and would continue with Zosyn as well. Kerlix and Garfield wraps were applied to the base of the toes up to the upper calf and we will try to get some of the swelling down by that means. There is no active drainage at this point on the leg, so his dressing should be able to be changed just daily. At that time of discharge, it had not been removed. The patient is chronically anticoagulated with therapeutic INRs. I do not think we need SCDs at this point. We will see the patient daily with application of pressure wraps on each day. Brett Thomas MD /[id number]
[2017-03-17] MEDS: Ferrous Sulfate 325 MG Tab PO SCH (17:09)
[2017-03-17] MEDS: Sodium Bicarbonate 650 MG Tab PO SCH (20:03)
[2017-03-17] MEDS: cloNIDine 0.1 MG Tab PO SCH (20:03)
[2017-03-17] MEDS: Pravastatin 20 MG Tab PO SCH (20:05)
[2017-03-17] MEDS ORDERED: Non-Formulary Medication 1 Each (Ferrous Sulfate [Ferrous Sulfate] 324 MG) PO SCH (21:00)
[2017-03-17] MEDS ORDERED: Insulin Detemir 100 Units/ML 3 ML Pen SUBCUT SCH (21:00)
[2017-03-17] MEDS ORDERED: CLONIDINE HCL PO SCH (21:00)
[2017-03-17] MEDS: Insulin Detemir 100 Units/ML 3 ML Pen SUBCUT SCH (22:31)
[2017-03-18] MEDS: Piperacillin/Tazobactam/Dext 3.375 GM in Premix Bag 1 BAG IV SCH ×5 (00:59→23:13)
[2017-03-18] MEDS: Sodium Chloride 0.9% 1,000 ML IV SCH ×2 (02:24→16:20)
[2017-03-18] MEDS: Levothyroxine 75 MCG Tab PO SCH (07:00)
[2017-03-18] MEDS: Pantoprazole 40 MG Tab.CR PO SCH (07:00)
[2017-03-18] MEDS: Insulin Aspart 100 Units/ML 3 ML Pen SUBCUT SCH ×7 (08:19→21:41)
[2017-03-18] MEDS: Aspirin 325 MG Tab.EC PO SCH (08:31)
[2017-03-18] MEDS: Ferrous Sulfate 325 MG Tab PO SCH ×2 (08:31→16:21)
[2017-03-18] MEDS: cloNIDine 0.1 MG Tab PO SCH ×2 (08:31→20:31)
[2017-03-18] MEDS: Magnesium Oxide 400 MG Tab PO SCH ×2 (08:32→20:32)
--- NOTE | 2017-03-18 08:32 | PN ---
DATE OF SERVICE: 03/18/2017 SUBJECTIVE: Paul' right foot and calf with Kerlix, then with a 4-inch Garfield wrap for acute exasperation of chronic edema and cellulitis of the right foot and calf. He states pain is controlled. REVIEW OF SYSTEMS: Remainder of review of systems negative for any pertinent positives and negatives. OBJECTIVE: GENERAL: Paul Epstein is a 66-year-old male. He is alert and orientated. VITAL SIGNS: TPR 98.5, 80, 20, blood pressure 144/54. HEENT: Negative. NECK: Supple. HEART: Regular rate and rhythm. LUNGS: Clear. EXTREMITIES: Right extremity as above. ASSESSMENT: Acute exasperation of chronic edema and cellulitis of right foot and calf, date 03/17/2017. PLAN: Keep Kerlix and Garfield on right lower leg. We will evaluate p.r.n. in the a.m. Babita Beltran PA-C /[id number]
[2017-03-18] MEDS: amLODIPine 5 MG Tab PO SCH (08:33)
[2017-03-18] MEDS: Sodium Bicarbonate 650 MG Tab PO SCH ×2 (08:35→20:33)
[2017-03-18] MEDS: Allopurinol 300 MG Tab PO SCH ×2 (08:35→08:42)
[2017-03-18] MEDS: Metoprolol Succinate 50 MG Tab.ER PO SCH ×2 (08:36→20:33)
[2017-03-18] MEDS: Linezolid 600 MG in Premix Bag 1 BAG IV SCH ×2 (08:36→20:28)
[2017-03-18] MEDS ORDERED: BENAZEPRIL 5 MG PO SCH (09:00)
[2017-03-18] MEDS ORDERED: Non-Formulary Medication 1 Each (Pravastatin [Pravachol] 40 MG) PO SCH (09:00)
--- NOTE | 2017-03-18 09:24 | CR ---
Mild cardiomegaly. Mild interstitial thickening. Correlate for interstitial pulmonary edema. Trace pl eural effusion on the right.
[2017-03-18] MEDS ORDERED: Sodium Polystyrene Sulfonate 15 GM/60 ML Susp 60 ML Bot PO ONE (09:30)
[2017-03-18] MEDS ORDERED: Warfarin 5 MG Tab PO SCH (13:00)
--- NOTE | 2017-03-18 18:45 | PCM.PN ---
- General Info Date of Service: 03/18/17 Subjective Update: Mr. Epstein has been stable since yesterday, vital signs have been good and he has remained afebrile. No evidence of residual sepsis, swelling and erythema in the leg have improved. - Patient Data Vitals - Most Recent: Last Vital Signs Temp 96.7 F 03/18/17 16:23 Pulse 65 03/18/17 16:23 Resp 16 03/18/17 16:23 BP 132/47 L 03/18/17 16:23 Pulse Ox 97 03/18/17 16:23 Weight - Most Recent: 297 lb 0.002 oz I&O - Last 24 Hours: Intake & Output 03/18/17 03/18/17 03/18/17 06:59 14:59 22:59 Intake Total 976 1200 1427 Balance 976 1200 1427 Lab Results Last 24 Hours: Laboratory Results - last 24 hr 03/17/17 03/18/17 03/18/17 Range/Units 20:43 05:59 05:59 WBC 6.2 (4.5-11.0) K/uL RBC 2.87 L (4.30-5.90) M/uL Hgb 8.6 L (12.0-15.0) g/dL Hct 28.9 L (40.0-54.0) % MCV 101 H (80-98) fL MCH 30 (27-31) pg MCHC 30 L (32-36) % Plt Count 105 L (150-400) K/uL Neut % (Auto) 76 H (36-66) % Lymph % (Auto) 11 L (24-44) % Parmer % (Auto) 10 H (2-6) % Eos % (Auto) 3 (2-4) % Baso % (Auto) 0 (0-1) % PT (9.5-12.0) sec INR (0.80-1.20) Sodium 144 (140-148) mmol/L Potassium 5.3 H 5.4 H (3.6-5.2) mmol/L Chloride 112 H (100-108) mmol/L Carbon Dioxide 26 (21-32) mmol/L Anion Gap 11.4 (5.0-14.0) mmol/L BUN 51 H (7-18) mg/dL Creatinine 2.6 H (0.8-1.3) mg/dL Est Cr Clr Drug Dosing 31.43 mL/min Estimated GFR (MDRD) 25 L (>60) Glucose 147 H (74-106) mg/dL Calcium 8.2 L (8.5-10.1) mg/dL Magnesium (1.8-2.4) mg/dL Total Bilirubin 0.3 (0.2-1.0) mg/dL AST 13 L (15-37) U/L ALT 20 (12-78) U/L Alkaline Phosphatase 61 (46-116) U/L Total Protein 5.8 L (6.4-8.2) g/dL Albumin 2.5 L (3.4-5.0) g/dL Globulin 3.3 (2.3-3.5) g/dL Albumin/Globulin Ratio 0.8 L (1.2-2.2) 03/18/17 03/18/17 Range/Units 05:59 05:59 WBC (4.5-11.0) K/uL RBC (4.30-5.90) M/uL Hgb (12.0-15.0) g/dL Hct (40.0-54.0) % MCV (80-98) fL MCH (27-31) pg MCHC (32-36) % Plt Count (150-400) K/uL Neut % (Auto) (36-66) % Lymph % (Auto) (24-44) % Parmer % (Auto) (2-6) % Eos % (Auto) (2-4) % Baso % (Auto) (0-1) % PT 32.9 H (9.5-12.0) sec INR 2.94 H (0.80-1.20) Sodium (140-148) mmol/L Potassium (3.6-5.2) mmol/L Chloride (100-108) mmol/L Carbon Dioxide (21-32) mmol/L Anion Gap (5.0-14.0) mmol/L BUN (7-18) mg/dL Creatinine (0.8-1.3) mg/dL Est Cr Clr Drug Dosing mL/min Estimated GFR (MDRD) (>60) Glucose (74-106) mg/dL Calcium (8.5-10.1) mg/dL Magnesium 2.0 (1.8-2.4) mg/dL Total Bilirubin (0.2-1.0) mg/dL AST (15-37) U/L ALT (12-78) U/L Alkaline Phosphatase (46-116) U/L Total Protein (6.4-8.2) g/dL Albumin (3.4-5.0) g/dL Globulin (2.3-3.5) g/dL Albumin/Globulin Ratio (1.2-2.2) Med Orders - Current: Current Medications Acetaminophen (Tylenol Extra Strength) 1,000 mg PO Q6H PRN PRN Reason: Pain Last Admin: 03/17/17 18:36 Dose: 1,000 mg Hydrocodone Bitart/Acetaminophen ([place] 325-5 Mg) 1 tab PO Q4H PRN PRN Reason: Pain (moderate 4-6) Allopurinol (Zyloprim) 300 mg PO DAILY [facility] Last Admin: 03/18/17 08:42 Dose: Not Given Amlodipine Besylate (Norvasc) 5 mg PO DAILY [facility] Last Admin: 03/18/17 08:33 Dose: 5 mg Aspirin (Ecotrin) 325 mg PO DAILY [facility] Last Admin: 03/18/17 08:31 Dose: 325 mg Benazepril HCl (Lotensin) 5 mg PO DAILY [facility] Last Admin: 03/18/17 08:31 Dose: 5 mg Clonidine HCl (Catapres) 0.2 mg PO BID [facility] Last Admin: 03/18/17 08:31 Dose: 0.2 mg Ferrous Sulfate (Ferrous Sulfate) 325 mg PO BIDMEALS [facility] Last Admin: 03/18/17 16:21 Dose: 325 mg Linezolid 600 mg/ Premix 300 mls @ 300 mls/hr IV Q12H [facility] Last Admin: 03/18/17 08:36 Dose: 300 mls/hr Piperacillin/Tazobactam/ (Dextrose 3.375 gm/ Premix) 50 mls @ 100 mls/hr IV Q6H [facility] Last Admin: 03/18/17 17:27 Dose: 100 mls/hr Insulin Aspart (Novolog) 15 unit SUBCUT TIDAC [facility] Last Admin: 03/18/17 17:27 Dose: 15 units Insulin Aspart (Novolog) 0 unit SUBCUT 0730,1130,1630,2100 [facility] PRN Reason: Protocol Last Admin: 03/18/17 17:33 Dose: 1 units Insulin Detemir (Levemir) 30 unit SUBCUT BEDTIME [facility] Last Admin: 03/17/17 22:31 Dose: 30 units Levothyroxine Sodium (Levothyroxine) 75 mcg PO ACBREAKFAST [facility] Last Admin: 03/18/17 07:00 Dose: 75 mcg Magnesium Oxide (Magnesium Oxide) 400 mg PO BID [facility] Last Admin: 03/18/17 08:32 Dose: 400 mg Metoprolol Succinate (Toprol Xl) 100 mg PO BID [facility] Last Admin: 03/18/17 08:36 Dose: 100 mg Ondansetron HCl (Zofran Odt) 4 mg PO Q6H PRN PRN Reason: Nausea able to take PO Last Admin: 03/17/17 17:15 Dose: 4 mg Pantoprazole Sodium (Protonix) 40 mg PO ACBREAKFAST [facility] Last Admin: 03/18/17 07:00 Dose: 40 mg Pravastatin Sodium (Pravachol) 40 mg PO BEDTIME [facility] Last Admin: 03/17/17 20:05 Dose: 40 mg Senna/Docusate Sodium (Senna Plus) 1 tab PO BID PRN PRN Reason: Constipation Sodium Bicarbonate (Sodium Bicarbonate) 1,300 mg PO BID [facility] Last Admin: 03/18/17 08:35 Dose: 1,300 mg Warfarin Sodium (Coumadin) 5 mg PO DAILY@1300 [facility] Last Admin: 03/18/17 12:15 Dose: 5 mg Discontinued Medications Acetaminophen (Tylenol) 650 mg PO NOW ONE Stop: 03/17/17 03:27 Last Admin: 03/17/17 03:56 Dose: 650 mg Heparin Sodium (Porcine) (Heparin Sodium) 5,000 units SUBCUT Q8H [facility] Last Admin: 03/17/17 06:09 Dose: 5,000 units Sodium Chloride (Normal Saline) 1,000 mls @ 150 mls/hr IV ASDIRECTED [facility] Last Admin: 03/17/17 02:48 Dose: 999 mls/hr Sodium Chloride (Normal Saline) 1,000 mls @ 999 mls/hr IV ASDIRECTED [facility] Last Admin: 03/17/17 02:48 Dose: 999 mls/hr Sodium Chloride (Normal Saline) 1,000 mls @ 250 mls/hr IV ASDIRECTED [facility] Last Admin: 03/17/17 04:00 Dose: 250 mls/hr Piperacillin Sod/Tazobactam (Sod 3.375 gm/ Sodium Chloride) 50 mls @ 100 mls/ hr IV Q6H [facility] Last Admin: 03/17/17 05:07 Dose: 100 mls/hr Vancomycin HCl 1 gm/ Sodium (Chloride) 250 mls @ 150 mls/hr IV Q24H [facility] Last Admin: 03/17/17 06:10 Dose: 150 mls/hr Magnesium Sulfate 2 gm/ Premix 50 mls @ 25 mls/hr IV ONETIME ONE Stop: 03/17/17 13:59 Last Admin: 03/17/17 12:52 Dose: 25 mls/hr Sodium Chloride (Normal Saline) 1,000 mls @ 100 mls/hr IV ASDIRECTED [facility] Last Admin: 03/18/17 16:20 Dose: 100 mls/hr Insulin Aspart (Novolog) 0 unit SUBCUT BIDAC [facility] PRN Reason: Protocol Last Admin: 03/17/17 23:01 Dose: 2 units Insulin Human Lispro (Humalog) 0 unit SUBCUT BIDAC [facility] PRN Reason: Protocol Metoprolol Succinate (Toprol Xl) 100 mg PO DAILY [facility] Last Admin: 03/17/17 08:56 Dose: 100 mg Sodium Polystyrene Sulfonate (Kayexalate) 30 gm PO ONETIME ONE Stop: 03/17/17 12:36 Last Admin: 03/17/17 14:02 Dose: 30 gm Sodium Polystyrene Sulfonate (Kayexalate) 30 gm PO ONETIME ONE Stop: 03/18/17 09:31 Last Admin: 03/18/17 09:36 Dose: 30 gm Warfarin Sodium (Coumadin) 10 mg PO ASDIRECTED [facility] Warfarin Sodium (Coumadin) 5 mg PO ASDIRECTED [facility] Warfarin Sodium (Coumadin) 10 mg PO ASDIRECTED [facility] Warfarin Sodium (Coumadin) 10 mg PO MoTuWe@1300 [facility] Last Admin: 03/17/17 17:08 Dose: 10 mg Warfarin Sodium (Coumadin) 5 mg PO SuThFrSa@1300 [facility] - Exam Quality Assessment: DVT Prophylaxis General: Alert, Oriented, Cooperative, No Acute Distress Lungs: Clear to Auscultation, Normal Respiratory Effort Cardiovascular: Regular Rate, Regular Rhythm, No Murmurs GI/Abdominal Exam: Soft, Non-Tender, No Organomegaly, No Distention Extremities: Pedal Edema, Redness Skin: Warm, Dry - Problem List Review Problem List Initiated/Reviewed/Updated: Yes - My Orders Last 24 Hours: My Active Orders 03/17/17 21:00 Insulin Detemir [Levemir] 30 unit SUBCUT BEDTIME Pravastatin [Pravachol] 40 mg PO BEDTIME Sodium Bicarbonate 1,300 mg PO BID cloNIDine [Catapres] 0.2 mg PO BID 03/18/17 07:30 Insulin Aspart [NovoLOG] See Protocol SUBCUT 0730,1130,1630,2100 03/18/17 09:00 Allopurinol [Zyloprim] 300 mg PO DAILY Benazepril [Lotensin] 5 mg PO DAILY amLODIPine [Norvasc] 5 mg PO DAILY 03/18/17 13:00 Warfarin [Coumadin] 5 mg PO DAILY@1300 03/18/17 18:42 Convert IV to Saline Lock [OM.PC] Routine 03/19/17 05:00 BASIC METABOLIC PANEL,BMP [CHEM] Timed CBC WITH AUTO DIFF [HEME] Timed INR,PT,PROTHROMBIN TIME [COAG] Timed MAGNESIUM [CHEM] Timed - Plan Plan:: ASSESSMENT AND PLAN CELLULITIS RIGHT LOWER EXTREMITY-improved over the past 24 hours with stable vital signs and resolution of sepsis -Blood cultures pending -Continue broad-spectrum IV antibiotic therapy, pending culture results -Saline lock IV Persistent despite hydration, received Kayexalate last night and again this a.m. -Saline lock IV -Repeat potassium level now and in a.m. CHRONIC KIDNEY DISEASE STAGE III-likely exacerbated secondary to dehydration -Closely monitor urine output and renal function during hospital stay TYPE 2 DIABETES MELLITUS -4 times a day glucometers -Continue usual dose of long-acting insulin -Low-dose sliding scale NovoLog -NovoLog 15 units subcutaneous with each meal MAINTENANCE ISSUES -DVT prophylaxis; current therapy with warfarin should provide adequate DVT prophylaxis -GI prophylaxis; continue PPI therapy -Jacobo catheter; not indicated -Nutrition; consistent carb diet -Nicotine dependence; not required CODE STATUS-FULL CODE ADMISSION STATUS-patient will be admitted to inpatient status, expect at least a 2 night hospital stay for evaluation and management of problems as outlined above. At the time of this admission I do not reasonably expected evaluation and management of this problem will require more than a 96 hour hospital stay. DISPOSITION-anticipate discharge to home after the hospital stay. PRIMARY CARE PROVIDER-
[2017-03-18] MEDS: Pravastatin 20 MG Tab PO SCH (20:32)
[2017-03-18] MEDS: Insulin Detemir 100 Units/ML 3 ML Pen SUBCUT SCH (21:40)
[2017-03-19] MEDS: Acetaminophen 500 MG Tab PO PRN (03:35)
[2017-03-19] MEDS: Acetaminophen/HYDROcodone 325-5 MG Tab PO PRN (03:35)
[2017-03-19] MEDS: Piperacillin/Tazobactam/Dext 3.375 GM in Premix Bag 1 BAG IV SCH ×4 (05:00→23:11)
[2017-03-19] MEDS: Levothyroxine 75 MCG Tab PO SCH (07:56)
[2017-03-19] MEDS: Insulin Aspart 100 Units/ML 3 ML Pen SUBCUT SCH ×7 (07:57→21:29)
[2017-03-19] MEDS: Pantoprazole 40 MG Tab.CR PO SCH (07:57)
[2017-03-19] MEDS: Ferrous Sulfate 325 MG Tab PO SCH ×2 (08:02→17:17)
[2017-03-19] MEDS: cloNIDine 0.1 MG Tab PO SCH ×2 (08:02→21:27)
[2017-03-19] MEDS: Magnesium Oxide 400 MG Tab PO SCH ×2 (08:03→21:29)
[2017-03-19] MEDS: Aspirin 325 MG Tab.EC PO SCH (08:03)
[2017-03-19] MEDS: Sodium Bicarbonate 650 MG Tab PO SCH ×2 (08:04→21:31)
[2017-03-19] MEDS: amLODIPine 5 MG Tab PO SCH (08:04)
[2017-03-19] MEDS: Metoprolol Succinate 50 MG Tab.ER PO SCH ×2 (08:04→21:31)
[2017-03-19] MEDS: Allopurinol 300 MG Tab PO SCH (08:05)
[2017-03-19] MEDS: Linezolid 600 MG in Premix Bag 1 BAG IV SCH ×2 (08:06→20:00)
--- NOTE | 2017-03-19 09:33 | PN ---
DATE OF SERVICE: 03/19/2017 SUBJECTIVE: Paul has sepsis, necrotizing fasciitis, and right leg pain. He currently is on antibiotic therapy. He reports having a little bit more pain in his toes this morning. OBJECTIVE: GENERAL: Paul Epstein is a 66-year-old male. He is alert and orientated. VITAL SIGNS: TPR is 98, 70, 16, blood pressure 156/64. HEENT: Negative. NECK: Supple. HEART: Regular rate and rhythm. LUNGS: Clear. EXTREMITIES: Right leg was wrapped with Kerlix and an Garfield wrap by Brett Thomas MD, this morning. ASSESSMENT: Acute exasperation of chronic edema and cellulitis of right foot and calf, date 03/17/2017. PLAN: 1. Keep Kerlix and Garfield on the right leg. 2. We will evaluate p.r.n. or in the a.m. 3. Communication order written to notify Brett Thomas MD, when discharged to put an Unna boot on the right leg. Babita Beltran PA-C /[id number]
--- NOTE | 2017-03-19 10:06 | PROC ---
DATE OF PROCEDURE: 03/19/2017 DIAGNOSIS: Chronic edema with superimposed cellulitis of the right calf. PROCEDURE: Placement of layered leg wraps, right calf ([id number]). SUMMARY: Once again, the patient was placed in the supine position in his hospital bed. We do note from yesterday, his leg appears to be down quite a bit. There is still some predominant edema in the foot. Overall, the clinical picture appears to be improved. Initially, a Kerlix was placed on the base of the toes up to the upper most calf and over this, a 4-inch Garfield wrap was placed with some increased pressure focussed on the foot and the procedure then concluded. There were no evident complications. Brett Thomas MD /[id number]
--- NOTE | 2017-03-19 16:31 | PCM.PN ---
- General Info Date of Service: 03/19/17 Subjective Update: Mr. Epstein has been stable since yesterday, vital signs have been good and he is remained afebrile. Continues to experience some pain in the leg but overall is much improved from admission. Appetite has been good and he denies any symptoms of nausea or vomiting. Renal function has remained stable. - Review of Systems General: Denies: Fever, Chills Pulmonary: Reports: No Symptoms Cardiovascular: Reports: No Symptoms Gastrointestinal: Reports: No Symptoms - Patient Data Vitals - Most Recent: Last Vital Signs Temp 97.0 F 03/19/17 16:21 Pulse 64 03/19/17 16:21 Resp 16 03/19/17 16:21 BP 150/55 H 03/19/17 16:21 Pulse Ox 95 03/19/17 16:21 Weight - Most Recent: 297 lb 0.002 oz I&O - Last 24 Hours: Intake & Output 03/19/17 03/19/17 03/19/17 06:59 14:59 22:59 Intake Total 832 660 600 Balance 832 660 600 Lab Results Last 24 Hours: Laboratory Results - last 24 hr 03/19/17 03/19/17 03/19/17 Range/Units 06:27 06:27 06:27 WBC 6.1 (4.5-11.0) K/uL RBC 3.02 L (4.30-5.90) M/uL Hgb 9.5 L (12.0-15.0) g/dL Hct 30.0 L (40.0-54.0) % MCV 99 H (80-98) fL MCH 32 H (27-31) pg MCHC 32 (32-36) % Plt Count 117 L (150-400) K/uL Neut % (Auto) 74 H (36-66) % Lymph % (Auto) 11 L (24-44) % Eagle % (Auto) 10 H (2-6) % Eos % (Auto) 5 H (2-4) % Baso % (Auto) 0 (0-1) % PT 38.9 H (9.5-12.0) sec INR 3.45 H (0.80-1.20) Sodium 143 (140-148) mmol/L Potassium 4.5 (3.6-5.2) mmol/L Chloride 110 H (100-108) mmol/L Carbon Dioxide 24 (21-32) mmol/L Anion Gap 13.5 (5.0-14.0) mmol/L BUN 44 H (7-18) mg/dL Creatinine 2.5 H (0.8-1.3) mg/dL Est Cr Clr Drug Dosing 32.69 mL/min Estimated GFR (MDRD) 26 L (>60) Glucose 131 H (74-106) mg/dL Calcium 8.2 L (8.5-10.1) mg/dL Magnesium 1.8 (1.8-2.4) mg/dL Med Orders - Current: Current Medications Acetaminophen (Tylenol Extra Strength) 1,000 mg PO Q6H PRN PRN Reason: Pain Last Admin: 03/19/17 03:35 Dose: 500 mg Hydrocodone Bitart/Acetaminophen ([place] 325-5 Mg) 1 tab PO Q4H PRN PRN Reason: Pain (moderate 4-6) Last Admin: 03/19/17 03:35 Dose: 1 tab Allopurinol (Zyloprim) 150 mg PO DAILY [facility] Amlodipine Besylate (Norvasc) 5 mg PO DAILY [facility] Last Admin: 03/19/17 08:04 Dose: 5 mg Aspirin (Ecotrin) 325 mg PO DAILY [facility] Last Admin: 03/19/17 08:03 Dose: 325 mg Benazepril HCl (Lotensin) 5 mg PO DAILY [facility] Last Admin: 03/19/17 08:03 Dose: 5 mg Clonidine HCl (Catapres) 0.2 mg PO BID [facility] Last Admin: 03/19/17 08:02 Dose: 0.2 mg Ferrous Sulfate (Ferrous Sulfate) 325 mg PO BIDMEALS [facility] Last Admin: 03/19/17 08:02 Dose: 325 mg Linezolid 600 mg/ Premix 300 mls @ 300 mls/hr IV Q12H [facility] Last Admin: 03/19/17 08:06 Dose: 300 mls/hr Piperacillin/Tazobactam/ (Dextrose 3.375 gm/ Premix) 50 mls @ 100 mls/hr IV Q6H [facility] Last Admin: 03/19/17 12:32 Dose: 100 mls/hr Insulin Aspart (Novolog) 15 unit SUBCUT TIDAC [facility] Last Admin: 03/19/17 12:30 Dose: 15 units Insulin Aspart (Novolog) 0 unit SUBCUT 0730,1130,1630,2100 [facility] PRN Reason: Protocol Last Admin: 03/19/17 12:31 Dose: 2 units Insulin Detemir (Levemir) 30 unit SUBCUT BEDTIME [facility] Last Admin: 03/18/17 21:40 Dose: 30 units Levothyroxine Sodium (Levothyroxine) 75 mcg PO ACBREAKFAST [facility] Last Admin: 03/19/17 07:56 Dose: 75 mcg Magnesium Oxide (Magnesium Oxide) 400 mg PO BID [facility] Last Admin: 03/19/17 08:03 Dose: 400 mg Metoprolol Succinate (Toprol Xl) 100 mg PO BID [facility] Last Admin: 03/19/17 08:04 Dose: 100 mg Ondansetron HCl (Zofran Odt) 4 mg PO Q6H PRN PRN Reason: Nausea able to take PO Last Admin: 03/17/17 17:15 Dose: 4 mg Pantoprazole Sodium (Protonix) 40 mg PO ACBREAKFAST [facility] Last Admin: 03/19/17 07:57 Dose: 40 mg Pravastatin Sodium (Pravachol) 40 mg PO BEDTIME [facility] Last Admin: 03/18/17 20:32 Dose: 40 mg Senna/Docusate Sodium (Senna Plus) 1 tab PO BID PRN PRN Reason: Constipation Sodium Bicarbonate (Sodium Bicarbonate) 1,300 mg PO BID [facility] Last Admin: 03/19/17 08:04 Dose: 1,300 mg Discontinued Medications Acetaminophen (Tylenol) 650 mg PO NOW ONE Stop: 03/17/17 03:27 Last Admin: 03/17/17 03:56 Dose: 650 mg Allopurinol (Zyloprim) 300 mg PO DAILY [facility] Last Admin: 03/19/17 08:05 Dose: 300 mg Heparin Sodium (Porcine) (Heparin Sodium) 5,000 units SUBCUT Q8H [facility] Last Admin: 03/17/17 06:09 Dose: 5,000 units Sodium Chloride (Normal Saline) 1,000 mls @ 150 mls/hr IV ASDIRECTED [facility] Last Admin: 03/17/17 02:48 Dose: 999 mls/hr Sodium Chloride (Normal Saline) 1,000 mls @ 999 mls/hr IV ASDIRECTED [facility] Last Admin: 03/17/17 02:48 Dose: 999 mls/hr Sodium Chloride (Normal Saline) 1,000 mls @ 250 mls/hr IV ASDIRECTED [facility] Last Admin: 03/17/17 04:00 Dose: 250 mls/hr Piperacillin Sod/Tazobactam (Sod 3.375 gm/ Sodium Chloride) 50 mls @ 100 mls/ hr IV Q6H [facility] Last Admin: 03/17/17 05:07 Dose: 100 mls/hr Vancomycin HCl 1 gm/ Sodium (Chloride) 250 mls @ 150 mls/hr IV Q24H [facility] Last Admin: 03/17/17 06:10 Dose: 150 mls/hr Magnesium Sulfate 2 gm/ Premix 50 mls @ 25 mls/hr IV ONETIME ONE Stop: 03/17/17 13:59 Last Admin: 03/17/17 12:52 Dose: 25 mls/hr Sodium Chloride (Normal Saline) 1,000 mls @ 100 mls/hr IV ASDIRECTED [facility] Last Admin: 03/18/17 16:20 Dose: 100 mls/hr Insulin Aspart (Novolog) 0 unit SUBCUT BIDAC [facility] PRN Reason: Protocol Last Admin: 03/17/17 23:01 Dose: 2 units Insulin Human Lispro (Humalog) 0 unit SUBCUT BIDAC [facility] PRN Reason: Protocol Metoprolol Succinate (Toprol Xl) 100 mg PO DAILY [facility] Last Admin: 03/17/17 08:56 Dose: 100 mg Sodium Polystyrene Sulfonate (Kayexalate) 30 gm PO ONETIME ONE Stop: 03/17/17 12:36 Last Admin: 03/17/17 14:02 Dose: 30 gm Sodium Polystyrene Sulfonate (Kayexalate) 30 gm PO ONETIME ONE Stop: 03/18/17 09:31 Last Admin: 03/18/17 09:36 Dose: 30 gm Warfarin Sodium (Coumadin) 10 mg PO ASDIRECTED [facility] Warfarin Sodium (Coumadin) 5 mg PO ASDIRECTED [facility] Warfarin Sodium (Coumadin) 10 mg PO ASDIRECTED [facility] Warfarin Sodium (Coumadin) 10 mg PO MoTuWe@1300 [facility] Last Admin: 03/17/17 17:08 Dose: 10 mg Warfarin Sodium (Coumadin) 5 mg PO SuThFrSa@1300 [facility] Warfarin Sodium (Coumadin) 5 mg PO DAILY@1300 [facility] Last Admin: 03/18/17 12:15 Dose: 5 mg - Exam Quality Assessment: DVT Prophylaxis General: Alert, Oriented, Cooperative, Mild Distress Lungs: Clear to Auscultation, Normal Respiratory Effort Cardiovascular: Regular Rate, Regular Rhythm, No Murmurs GI/Abdominal Exam: Soft, Non-Tender, No Organomegaly, No Distention Extremities: Pedal Edema, Increased Warmth, Redness Skin: Warm, Dry - Problem List Review Problem List Initiated/Reviewed/Updated: Yes - My Orders Last 24 Hours: My Active Orders 03/18/17 18:42 Convert IV to Saline Lock [OM.PC] Routine 03/20/17 05:00 INR,PT,PROTHROMBIN TIME [[facility]] Timed 03/20/17 09:00 Allopurinol [Zyloprim] 150 mg PO DAILY - Plan Plan:: ASSESSMENT AND PLAN CELLULITIS RIGHT LOWER EXTREMITY-further improvement in cellulitis, blood culture results are negative thus far -Blood cultures pending -Continue broad-spectrum IV antibiotic therapy, pending culture results -Saline lock IV HYPERKALEMIA -resolved after 2 doses of Kayexalate -Saline lock IV -Repeat potassium level in a.m. CHRONIC KIDNEY DISEASE STAGE III-likely exacerbated secondary to dehydration, renal function has remained stable since admission. Currently within usual range for this patient -Closely monitor urine output and renal function during hospital stay TYPE 2 DIABETES MELLITUS -4 times a day glucometers -Continue usual dose of long-acting insulin -Low-dose sliding scale NovoLog -NovoLog 15 units subcutaneous with each meal MAINTENANCE ISSUES -DVT prophylaxis; current therapy with warfarin should provide adequate DVT prophylaxis -GI prophylaxis; continue PPI therapy -Jacobo catheter; not indicated -Nutrition; consistent carb diet -Nicotine dependence; not required CODE STATUS-FULL CODE ADMISSION STATUS-patient will be admitted to inpatient status, expect at least a 2 night hospital stay for evaluation and management of problems as outlined above. At the time of this admission I do not reasonably expected evaluation and management of this problem will require more than a 96 hour hospital stay. DISPOSITION-anticipate discharge to home after the hospital stay. PRIMARY CARE PROVIDER-
[2017-03-19] MEDS: Pravastatin 20 MG Tab PO SCH (21:28)
[2017-03-19] MEDS: Insulin Detemir 100 Units/ML 3 ML Pen SUBCUT SCH (21:30)
[2017-03-20] MEDS: Acetaminophen/HYDROcodone 325-5 MG Tab PO PRN (05:47)
[2017-03-20] MEDS: Acetaminophen 500 MG Tab PO PRN (05:48)
[2017-03-20] MEDS: Piperacillin/Tazobactam/Dext 3.375 GM in Premix Bag 1 BAG IV SCH ×3 (06:50→18:05)
[2017-03-20] MEDS: Levothyroxine 75 MCG Tab PO SCH (07:28)
[2017-03-20] MEDS: Insulin Aspart 100 Units/ML 3 ML Pen SUBCUT SCH ×7 (08:29→21:20)
[2017-03-20] MEDS: Pantoprazole 40 MG Tab.CR PO SCH (08:31)
[2017-03-20] MEDS: Aspirin 325 MG Tab.EC PO SCH (08:32)
[2017-03-20] MEDS: cloNIDine 0.1 MG Tab PO SCH ×2 (08:32→21:13)
[2017-03-20] MEDS: Ferrous Sulfate 325 MG Tab PO SCH ×2 (08:32→16:12)
[2017-03-20] MEDS: amLODIPine 5 MG Tab PO SCH (08:33)
[2017-03-20] MEDS: Magnesium Oxide 400 MG Tab PO SCH ×2 (08:33→21:18)
[2017-03-20] MEDS: Sodium Bicarbonate 650 MG Tab PO SCH ×2 (08:34→21:21)
[2017-03-20] MEDS: Allopurinol 300 MG Tab PO SCH (08:34)
[2017-03-20] MEDS: Metoprolol Succinate 50 MG Tab.ER PO SCH ×2 (08:34→21:21)
[2017-03-20] MEDS: Linezolid 600 MG in Premix Bag 1 BAG IV SCH (08:35)
--- NOTE | 2017-03-20 09:17 | PN ---
DATE OF SERVICE: 03/20/2017 SUBJECTIVE: Paul has been up ambulating. He did not take a shower this morning. He had some skin breakdown of that right leg. Pain has been completely controlled. He only takes the pain medication prior to his shower. REVIEW OF SYSTEMS: Remainder of review of systems negative for any pertinent positives and negatives. OBJECTIVE: GENERAL: Paul Epstein is a 66-year-old male, alert, orientated. VITAL SIGNS: TPR 98.9, 73, 16; blood pressure 164/59. HEENT: Negative. NECK: Supple. HEART: Regular rate and rhythm. LUNGS: Clear. EXTREMITIES: Right extremity, there are 3 areas where the skin has broke down. Otherwise, there is no swelling and no change. ASSESSMENT: Acute exasperation of chronic edema and cellulitis of right foot and calf. PLAN: 1. After Deon Delarosa MD, examines the patient's right leg, Brett Thomas MD, will apply an Unna boot. 2. Discharge per Deon Delarosa MD, when appropriate. 3. Paul is to follow up with his primary care provider, in [place] on 03/26/2017 with Brett Thomas MD. Babita Beltran PA-C /[id number]
[2017-03-20] MEDS ORDERED: Warfarin 5 MG Tab PO ONE (13:00)
[2017-03-20] MEDS ORDERED: Warfarin 5 MG Tab PO SCH (13:00)
--- NOTE | 2017-03-20 13:28 | PCM.PN ---
- General Info Date of Service: 03/20/17 Subjective Update: Mr. Epstein has been stable since yesterday, reports decreased pain in his right foot. Vital signs have been stable and he has remained afebrile. - Review of Systems General: Denies: Fever, Chills Pulmonary: Reports: No Symptoms Cardiovascular: Reports: No Symptoms Gastrointestinal: Reports: No Symptoms - Patient Data Vitals - Most Recent: Last Vital Signs Temp 98.3 F 03/20/17 12:00 Pulse 66 03/20/17 12:00 Resp 18 03/20/17 12:00 BP 153/55 H 03/20/17 12:00 Pulse Ox 95 03/20/17 12:00 Weight - Most Recent: 297 lb 0.002 oz I&O - Last 24 Hours: Intake & Output 03/19/17 03/20/17 03/20/17 22:59 06:59 14:59 Intake Total 600 650 Balance 600 650 Lab Results Last 24 Hours: Laboratory Results - last 24 hr 03/20/17 Range/Units 05:37 PT 33.1 H (9.5-12.0) sec INR 2.96 H (0.80-1.20) Med Orders - Current: Current Medications Acetaminophen (Tylenol Extra Strength) 1,000 mg PO Q6H PRN PRN Reason: Pain Last Admin: 03/20/17 05:48 Dose: 500 mg Hydrocodone Bitart/Acetaminophen ([place] 325-5 Mg) 1 tab PO Q4H PRN PRN Reason: Pain (moderate 4-6) Last Admin: 03/20/17 05:47 Dose: 1 tab Allopurinol (Zyloprim) 150 mg PO DAILY [facility] Last Admin: 03/20/17 08:34 Dose: 150 mg Amlodipine Besylate (Norvasc) 5 mg PO DAILY [facility] Last Admin: 03/20/17 08:33 Dose: 5 mg Aspirin (Ecotrin) 325 mg PO DAILY [facility] Last Admin: 03/20/17 08:32 Dose: 325 mg Benazepril HCl (Lotensin) 5 mg PO DAILY [facility] Last Admin: 03/20/17 08:32 Dose: 5 mg Clonidine HCl (Catapres) 0.2 mg PO BID [facility] Last Admin: 03/20/17 08:32 Dose: 0.2 mg [facility]ous Sulf[facility]) [facility] Last Admin: 03/20/17 08:32 Dose: 325 mg Linezolid 600 mg/ Premix 300 mls @ 300 mls/hr IV Q12H [facility] Last Admin: 03/20/17 08:35 Dose: 300 mls/hr Piperacillin/Tazobactam/ (Dextrose 3.375 gm/ Premix) 50 mls @ 100 mls/hr IV Q6H [facility] Last Admin: 03/20/17 12:07 Dose: 100 mls/hr Insulin Aspart (Novolog) 15 unit SUBCUT TIDAC [facility] Last Admin: 03/20/17 12:06 Dose: 15 units Insulin Aspart (Novolog) 0 unit SUBCUT 0730,1130,1630,2100 [facility] PRN Reason: Protocol Last Admin: 03/20/17 12:07 Dose: 2 units Insulin Detemir (Levemir) 30 unit SUBCUT BEDTIME [facility] Last Admin: 03/19/17 21:30 Dose: 30 units Levothyroxine Sodium (Levothyroxine) 75 mcg PO ACBREAKFAST [facility] Last Admin: 03/20/17 07:28 Dose: 75 mcg Magnesium Oxide (Magnesium Oxide) 400 mg PO BID [facility] Last Admin: 03/20/17 08:33 Dose: 400 mg Metoprolol Succinate (Toprol Xl) 100 mg PO BID [facility] Last Admin: 03/20/17 08:34 Dose: 100 mg Ondansetron HCl (Zofran Odt) 4 mg PO Q6H PRN PRN Reason: Nausea able to take PO Last Admin: 03/17/17 17:15 Dose: 4 mg Pantoprazole Sodium (Protonix) 40 mg PO ACBREAKFAST [facility] Last Admin: 03/20/17 08:31 Dose: 40 mg Pravastatin Sodium (Pravachol) 40 mg PO BEDTIME [facility] Last Admin: 03/19/17 21:28 Dose: 40 mg Senna/Docusate Sodium (Senna Plus) 1 tab PO BID PRN PRN Reason: Constipation Sodium Bicarbonate (Sodium Bicarbonate) 1,300 mg PO BID [facility] Last Admin: 03/20/17 08:34 Dose: 1,300 mg Discontinued Medications Acetaminophen (Tylenol) 650 mg PO NOW ONE Stop: 03/17/17 03:27 Last Admin: 03/17/17 03:56 Dose: 650 mg Allopurinol (Zyloprim) 300 mg PO DAILY [facility] Last Admin: 03/19/17 08:05 Dose: 300 mg Heparin Sodium (Porcine) (Heparin Sodium) 5,000 units SUBCUT Q8H [facility] Last Admin: 03/17/17 06:09 Dose: 5,000 units Sodium Chloride (Normal Saline) 1,000 mls @ 150 mls/hr IV ASDIRECTED [facility] Last Admin: 03/17/17 02:48 Dose: 999 mls/hr Sodium Chloride (Normal Saline) 1,000 mls @ 999 mls/hr IV ASDIRECTED [facility] Last Admin: 03/17/17 02:48 Dose: 999 mls/hr Sodium Chloride (Normal Saline) 1,000 mls @ 250 mls/hr IV ASDIRECTED [facility] Last Admin: 03/17/17 04:00 Dose: 250 mls/hr Piperacillin Sod/Tazobactam (Sod 3.375 gm/ Sodium Chloride) 50 mls @ 100 mls/ hr IV Q6H [facility] Last Admin: 03/17/17 05:07 Dose: 100 mls/hr Vancomycin HCl 1 gm/ Sodium (Chloride) 250 mls @ 150 mls/hr IV Q24H [facility] Last Admin: 03/17/17 06:10 Dose: 150 mls/hr Magnesium Sulfate 2 gm/ Premix 50 mls @ 25 mls/hr IV ONETIME ONE Stop: 03/17/17 13:59 Last Admin: 03/17/17 12:52 Dose: 25 mls/hr Sodium Chloride (Normal Saline) 1,000 mls @ 100 mls/hr IV ASDIRECTED [facility] Last Admin: 03/18/17 16:20 Dose: 100 mls/hr Insulin Aspart (Novolog) 0 unit SUBCUT BIDAC [facility] PRN Reason: Protocol Last Admin: 03/17/17 23:01 Dose: 2 units Insulin Human Lispro (Humalog) 0 unit SUBCUT BIDAC [facility] PRN Reason: Protocol Metoprolol Succinate (Toprol Xl) 100 mg PO DAILY [facility] Last Admin: 03/17/17 08:56 Dose: 100 mg Sodium Polystyrene Sulfonate (Kayexalate) 30 gm PO ONETIME ONE Stop: 03/17/17 12:36 Last Admin: 03/17/17 14:02 Dose: 30 gm Sodium Polystyrene Sulfonate (Kayexalate) 30 gm PO ONETIME ONE Stop: 03/18/17 09:31 Last Admin: 03/18/17 09:36 Dose: 30 gm Warfarin Sodium (Coumadin) 10 mg PO ASDIRECTED [facility] Warfarin Sodium (Coumadin) 5 mg PO ASDIRECTED [facility] Warfarin Sodium (Coumadin) 10 mg PO ASDIRECTED [facility] Warfarin Sodium (Coumadin) 10 mg PO MoTuWe@1300 [facility] Last Admin: 03/17/17 17:08 Dose: 10 mg Warfarin Sodium (Coumadin) 5 mg PO SuThFrSa@1300 [facility] Warfarin Sodium (Coumadin) 5 mg PO DAILY@1300 [facility] Last Admin: 03/18/17 12:15 Dose: 5 mg Warfarin Sodium (Coumadin) 5 mg PO ONETIME ONE Stop: 03/20/17 13:01 Last Admin: 03/20/17 12:08 Dose: 5 mg - Exam Quality Assessment: DVT Prophylaxis General: Alert, Oriented, Cooperative, No Acute Distress Lungs: Clear to Auscultation, Normal Respiratory Effort Cardiovascular: Regular Rate, Regular Rhythm, No Murmurs GI/Abdominal Exam: Soft, Non-Tender, No Organomegaly, No Distention Extremities: Non-Tender, Pedal Edema Skin: Warm, Dry - Problem List Review Problem List Initiated/Reviewed/Updated: Yes - My Orders Last 24 Hours: My Active Orders 03/20/17 09:00 Allopurinol [Zyloprim] 150 mg PO DAILY 03/21/17 05:11 INR,PT,PROTHROMBIN TIME [[facility]] AM - Plan Plan:: ASSESSMENT AND PLAN CELLULITIS RIGHT LOWER EXTREMITY-cellulitis nearly resolved, ongoing lymphedema -Blood cultures negative thus far -Continue broad-spectrum IV antibiotic therapy, pending culture results -Saline lock IV HYPERKALEMIA -resolved after 2 doses of Kayexalate -Saline lock IV CHRONIC KIDNEY DISEASE STAGE III-likely exacerbated secondary to dehydration, renal function has remained stable since admission. Currently within usual range for this patient -Closely monitor urine output and renal function during hospital stay TYPE 2 DIABETES MELLITUS -4 times a day glucometers -Continue usual dose of long-acting insulin -Low-dose sliding scale NovoLog -NovoLog 15 units subcutaneous with each meal MAINTENANCE ISSUES -DVT prophylaxis; current therapy with warfarin should provide adequate DVT prophylaxis -GI prophylaxis; continue PPI therapy -Jacobo catheter; not indicated -Nutrition; consistent carb diet -Nicotine dependence; not required CODE STATUS-FULL CODE ADMISSION STATUS-patient will be admitted to inpatient status, expect at least a 2 night hospital stay for evaluation and management of problems as outlined above. At the time of this admission I do not reasonably expected evaluation and management of this problem will require more than a 96 hour hospital stay. DISPOSITION-anticipate discharge to home after the hospital stay. PRIMARY CARE PROVIDER-
[2017-03-20] MEDS: Furosemide 40 MG Tab PO SCH (16:13)
[2017-03-20] MEDS: Insulin Detemir 100 Units/ML 3 ML Pen SUBCUT SCH (21:17)
[2017-03-20] MEDS: Pravastatin 20 MG Tab PO SCH (21:21)
[2017-03-21] MEDS: Piperacillin/Tazobactam/Dext 3.375 GM in Premix Bag 1 BAG IV SCH ×4 (00:25→19:39)
[2017-03-21] MEDS: Acetaminophen/HYDROcodone 325-5 MG Tab PO PRN ×2 (03:51→21:57)
[2017-03-21] MEDS: Acetaminophen 500 MG Tab PO PRN ×2 (03:51→14:34)
[2017-03-21] MEDS: Ferrous Sulfate 325 MG Tab PO SCH ×2 (07:29→17:06)
[2017-03-21] MEDS: Pantoprazole 40 MG Tab.CR PO SCH (07:29)
[2017-03-21] MEDS: Levothyroxine 75 MCG Tab PO SCH (07:30)
[2017-03-21] MEDS: Insulin Aspart 100 Units/ML 3 ML Pen SUBCUT SCH ×7 (07:31→21:51)
[2017-03-21] MEDS: Furosemide 40 MG Tab PO SCH (07:35)
[2017-03-21] MEDS: Sodium Bicarbonate 650 MG Tab PO SCH ×2 (08:39→21:48)
[2017-03-21] MEDS: Metoprolol Succinate 50 MG Tab.ER PO SCH ×2 (08:40→21:55)
[2017-03-21] MEDS: Magnesium Oxide 400 MG Tab PO SCH ×2 (08:41→21:53)
[2017-03-21] MEDS: cloNIDine 0.1 MG Tab PO SCH ×2 (08:41→21:53)
[2017-03-21] MEDS: Allopurinol 300 MG Tab PO SCH (08:43)
[2017-03-21] MEDS: amLODIPine 5 MG Tab PO SCH (08:43)
[2017-03-21] MEDS: Aspirin 325 MG Tab.EC PO SCH (08:44)
--- NOTE | 2017-03-21 10:14 | PN ---
DATE OF SERVICE: 03/21/2017 SUBJECTIVE: Paul had a temp max of 101.5 at 3:00 a.m. His pain has been controlled. He has been up ambulating. He did shower this morning. Leg was examined per Brett Thomas MD, and he put a wound Unna boot on his right lower leg and foot. REVIEW OF SYSTEMS: All 12 systems reviewed and negative for any other pertinent positives or negatives. OBJECTIVE: GENERAL: Paul Epstein is a 66-year male. VITAL SIGNS: TPR is 98.1, 75, 16; blood pressure 158/56. HEENT: Negative. NECK: Supple. HEART: Regular rate and rhythm. LUNGS: Clear. EXTREMITIES: Right extremity shows no change. ASSESSMENT: Acute exasperation of chronic edema and cellulitis of right foot and calf. PLAN: 1. Unna boot was placed per Brett Thomas MD. 2. We will evaluate p.r.n. or in a.m. Babita Beltran PA-C /[id number]
[2017-03-21] MEDS ORDERED: Warfarin 5 MG Tab PO ONE (13:00)
[2017-03-21] MEDS ORDERED: Sodium Chloride 0.9% 1,000 ML IV SCH (13:30)
--- NOTE | 2017-03-21 14:06 | CR ---
Two-view chest Comparison: 4 days prior. Findings: There is chronic enlargement. There is increasing vascular engorgement. There are developin g interstitial infiltrates. There is mild fluid within the fissures. There is small right pleural eff usion. Impression: 1. Mild interval progression of CHF with interstitial edema and developing right pleural effusion.
[2017-03-21] MEDS: Doxycycline 100 MG in Sodium Chloride 0.9% 100 ML IV SCH (14:34)
[2017-03-21] MEDS ORDERED: Furosemide 40 MG/4 ML VIAL IVPUSH ONE (17:00)
--- NOTE | 2017-03-21 17:59 | PCM.PN ---
- General Info Date of Service: 03/21/17 Subjective Update: Unfortunately Mr. Epstein is not feeling as well today, he has developed shortness of breath as well as recurrent temperature elevations. Chest x-ray shows evidence of pulmonary edema but no obvious infiltrates. White blood cell count is within normal range. He denies any symptoms of chest pain or pressure but has noted shortness of breath and cough with blood-tinged sputum. - Patient Data Vitals - Most Recent: Last Vital Signs Temp 101.3 F H 03/21/17 14:28 Pulse 94 03/21/17 14:28 Resp 18 03/21/17 14:28 BP 154/48 H 03/21/17 17:07 Pulse Ox 91 L 03/21/17 14:28 Weight - Most Recent: 304 lb 9 oz I&O - Last 24 Hours: Intake & Output 03/21/17 03/21/17 03/21/17 06:59 14:59 22:59 Intake Total 100 1350 Balance 100 1350 Lab Results Last 24 Hours: Laboratory Results - last 24 hr 03/21/17 03/21/17 03/21/17 Range/Units 05:11 12:30 12:30 WBC 8.4 (4.5-11.0) K/uL RBC 2.99 L (4.30-5.90) M/uL Hgb 9.1 L (12.0-15.0) g/dL Hct 29.9 L (40.0-54.0) % MCV 100 H (80-98) fL MCH 30 (27-31) pg MCHC 30 L (32-36) % Plt Count 126 L (150-400) K/uL Neut % (Auto) 80 H (36-66) % Lymph % (Auto) 9 L (24-44) % [place] % (Auto) 9 H (2-6) % Eos % (Auto) 2 (2-4) % Baso % (Auto) 0 (0-1) % PT 24.7 H (9.5-12.0) sec INR 2.23 H (0.80-1.20) Sodium 142 (140-148) mmol/L Potassium 4.4 (3.6-5.2) mmol/L Chloride 105 (100-108) mmol/L Carbon Dioxide 25 (21-32) mmol/L Anion Gap 11.6 (5.0-14.0) mmol/L BUN 41 H (7-18) mg/dL Creatinine 2.7 H (0.8-1.3) mg/dL Est Cr Clr Drug Dosing 30.27 mL/min Estimated GFR (MDRD) 24 L (>60) Glucose 139 H (74-106) mg/dL Calcium 8.7 (8.5-10.1) mg/dL John Paul Results Last 24 Hours: Microbiology 03/21/17 13:51 Gram Stain - Final Sputum - Expectorated 03/21/17 14:30 Influenza Type A Antigen Screen - Final Nasopharyngeal Swab - Nare, Left NEGATIVE INFLUENZA A VIRUS AG Influenza Type B Antigen Screen - Final NEGATIVE INFLUENZA B VIRUS AG Med Orders - Current: Current Medications Acetaminophen (Tylenol Extra Strength) 1,000 mg PO Q6H PRN PRN Reason: Pain Last Admin: 03/21/17 14:34 Dose: 1,000 mg Hydrocodone Bitart/Acetaminophen ([place] 325-5 Mg) 1 tab PO Q4H PRN PRN Reason: Pain (moderate 4-6) Last Admin: 03/21/17 03:51 Dose: 1 tab Allopurinol (Zyloprim) 150 mg PO DAILY [facility] Last Admin: 03/21/17 08:43 Dose: 150 mg Amlodipine Besylate (Norvasc) 5 mg PO DAILY [facility] Last Admin: 03/21/17 08:43 Dose: 5 mg Aspirin (Ecotrin) 325 mg PO DAILY [facility] Last Admin: 03/21/17 08:44 Dose: 325 mg Benazepril HCl (Lotensin) 5 mg PO DAILY [facility] Last Admin: 03/21/17 08:44 Dose: 5 mg Clonidine HCl (Catapres) 0.2 mg PO BID [facility] Last Admin: 03/21/17 08:41 Dose: 0.2 mg Ferrous Sulfate (Ferrous Sulfate) 325 mg PO BIDMEALS [facility] Last Admin: 03/21/17 17:06 Dose: 325 mg Furosemide (Lasix) 40 mg PO BID@0800,1600 [facility] Last Admin: 03/21/17 07:35 Dose: 40 mg Piperacillin/Tazobactam/ (Dextrose 3.375 gm/ Premix) 50 mls @ 100 mls/hr IV Q6H [facility] Last Admin: 03/21/17 13:34 Dose: 100 mls/hr Doxycycline Hyclate 100 mg/ (Sodium Chloride) 100 mls @ 100 mls/hr IV Q12H [facility] Last Admin: 03/21/17 14:34 Dose: 100 mls/hr Linezolid 600 mg/ Premix 300 mls @ 300 mls/hr IV Q12H [facility] Insulin Aspart (Novolog) 15 unit SUBCUT TIDAC [facility] Last Admin: 03/21/17 16:59 Dose: 15 units Insulin Aspart (Novolog) 0 unit SUBCUT 0730,1130,1630,2100 [facility] PRN Reason: Protocol Last Admin: 03/21/17 17:01 Dose: 1 units Insulin Detemir (Levemir) 30 unit SUBCUT BEDTIME [facility] Last Admin: 03/20/17 21:17 Dose: 30 units Levothyroxine Sodium (Levothyroxine) 75 mcg PO ACBREAKFAST [facility] Last Admin: 03/21/17 07:30 Dose: 75 mcg Magnesium Oxide (Magnesium Oxide) 400 mg PO BID [facility] Last Admin: 03/21/17 08:41 Dose: 400 mg Metoprolol Succinate (Toprol Xl) 100 mg PO BID [facility] Last Admin: 03/21/17 08:40 Dose: 100 mg Ondansetron HCl (Zofran Odt) 4 mg PO Q6H PRN PRN Reason: Nausea able to take PO Last Admin: 03/17/17 17:15 Dose: 4 mg Pantoprazole Sodium (Protonix) 40 mg PO ACBREAKFAST [facility] Last Admin: 03/21/17 07:29 Dose: 40 mg Pravastatin Sodium (Pravachol) 40 mg PO BEDTIME [facility] Last Admin: 03/20/17 21:21 Dose: 40 mg Senna/Docusate Sodium (Senna Plus) 1 tab PO BID PRN PRN Reason: Constipation Sodium Bicarbonate (Sodium Bicarbonate) 1,300 mg PO BID [facility] Last Admin: 03/21/17 08:39 Dose: 1,300 mg Discontinued Medications Acetaminophen (Tylenol) 650 mg PO NOW ONE Stop: 03/17/17 03:27 Last Admin: 03/17/17 03:56 Dose: 650 mg Allopurinol (Zyloprim) 300 mg PO DAILY [facility] Last Admin: 03/19/17 08:05 Dose: 300 mg Furosemide (Lasix) 80 mg IVPUSH ONETIME ONE Stop: 03/21/17 17:01 Last Admin: 03/21/17 17:07 Dose: 80 mg Heparin Sodium (Porcine) (Heparin Sodium) 5,000 units SUBCUT Q8H [facility] Last Admin: 03/17/17 06:09 Dose: 5,000 units Sodium Chloride (Normal Saline) 1,000 mls @ 150 mls/hr IV ASDIRECTED [facility] Last Admin: 03/17/17 02:48 Dose: 999 mls/hr Sodium Chloride (Normal Saline) 1,000 mls @ 999 mls/hr IV ASDIRECTED [facility] Last Admin: 03/17/17 02:48 Dose: 999 mls/hr Sodium Chloride (Normal Saline) 1,000 mls @ 250 mls/hr IV ASDIRECTED [facility] Last Admin: 03/17/17 04:00 Dose: 250 mls/hr Piperacillin Sod/Tazobactam (Sod 3.375 gm/ Sodium Chloride) 50 mls @ 100 mls/ hr IV Q6H [facility] Last Admin: 03/17/17 05:07 Dose: 100 mls/hr Vancomycin HCl 1 gm/ Sodium (Chloride) 250 mls @ 150 mls/hr IV Q24H [facility] Last Admin: 03/17/17 06:10 Dose: 150 mls/hr Linezolid 600 mg/ Premix 300 mls @ 300 mls/hr IV Q12H [facility] Last Admin: 03/20/17 08:35 Dose: 300 mls/hr Magnesium Sulfate 2 gm/ Premix 50 mls @ 25 mls/hr IV ONETIME ONE Stop: 03/17/17 13:59 Last Admin: 03/17/17 12:52 Dose: 25 mls/hr Sodium Chloride (Normal Saline) 1,000 mls @ 100 mls/hr IV ASDIRECTED [facility] Last Admin: 03/18/17 16:20 Dose: 100 mls/hr Sodium Chloride (Normal Saline) 1,000 mls @ 125 mls/hr IV ASDIRECTED [facility] Insulin Aspart (Novolog) 0 unit SUBCUT BIDAC [facility] PRN Reason: Protocol Last Admin: 03/17/17 23:01 Dose: 2 units Insulin Human Lispro (Humalog) 0 unit SUBCUT BIDAC [facility] PRN Reason: Protocol Metoprolol Succinate (Toprol Xl) 100 mg PO DAILY [facility] Last Admin: 03/17/17 08:56 Dose: 100 mg Sodium Polystyrene Sulfonate (Kayexalate) 30 gm PO ONETIME ONE Stop: 03/17/17 12:36 Last Admin: 03/17/17 14:02 Dose: 30 gm Sodium Polystyrene Sulfonate (Kayexalate) 30 gm PO ONETIME ONE Stop: 03/18/17 09:31 Last Admin: 03/18/17 09:36 Dose: 30 gm Warfarin Sodium (Coumadin) 10 mg PO ASDIRECTED [facility] Warfarin Sodium (Coumadin) 5 mg PO ASDIRECTED [facility] Warfarin Sodium (Coumadin) 10 mg PO ASDIRECTED [facility] Warfarin Sodium (Coumadin) 10 mg PO MoTuWe@1300 [facility] Last Admin: 03/17/17 17:08 Dose: 10 mg Warfarin Sodium (Coumadin) 5 mg PO SuThFrSa@1300 [facility] Warfarin Sodium (Coumadin) 5 mg PO DAILY@1300 [facility] Last Admin: 03/18/17 12:15 Dose: 5 mg Warfarin Sodium (Coumadin) 5 mg PO ONETIME ONE Stop: 03/20/17 13:01 Last Admin: 03/20/17 12:08 Dose: 5 mg Warfarin Sodium (Coumadin) 5 mg PO ONETIME ONE Stop: 03/21/17 13:01 Last Admin: 03/21/17 13:34 Dose: 5 mg - Exam Quality Assessment: Supplemental Oxygen, DVT Prophylaxis General: Alert, Oriented, Cooperative, Mild Distress Lungs: Normal Respiratory Effort, Decreased Breath Sounds, Rales. No: Rhonchi, Rub, Stridor, Wheezing Cardiovascular: Regular Rate, No Murmurs, Irregular Rhythm GI/Abdominal Exam: Soft, Non-Tender, No Organomegaly, No Distention Extremities: Non-Tender, Pedal Edema Skin: Warm, Dry - Problem List Review Problem List Initiated/Reviewed/Updated: Yes - My Orders Last 24 Hours: My Active Orders 03/21/17 12:26 Blood Culture x2 Reflex Set [OM.PC] Urgent 03/21/17 12:30 CULTURE BLOOD [BC] Stat 03/21/17 12:36 CULTURE BLOOD [BC] Stat 03/21/17 13:51 CULTURE RESPIRATORY + SMEAR [RM] Routine 03/21/17 14:00 Doxycycline [Vibramycin] 100 mg Sodium Chloride 0.9% [Normal Saline] 100 ml IV Q12H 03/21/17 14:18 Convert IV to Saline Lock [OM.PC] Routine 03/21/17 18:00 Linezolid [Zyvox] 600 mg Premix Bag 1 bag IV Q12H 03/22/17 05:00 BASIC METABOLIC PANEL,BMP [CHEM] Timed CBC WITH AUTO DIFF [HEME] Timed INR,PT,PROTHROMBIN TIME [COAG] Timed MAGNESIUM [CHEM] Timed - Plan Plan:: ASSESSMENT AND PLAN CELLULITIS RIGHT LOWER cellulitis resolved, Unna boot in place -Blood cultures negative thus far -Continue IV Zosyn in light of new temperature elevation -Saline lock IV FEVER-associated with symptoms of respiratory compromise including shortness of breath and cough productive of blood-tinged sputum. Chest x-ray shows evidence of pulmonary edema but no obvious infiltrate. White blood cell count remains within normal range, influenza A and B antigens were negative. -Blood cultures repeated -Add additional antibiotic therapy with doxycycline and Zosyn pending culture results -Furosemide 80 mg IV at 5 PM HYPERKALEMIA -resolved after 2 doses of Kayexalate -Saline lock IV CHRONIC KIDNEY DISEASE STAGE III-creatinine increased slightly from recent baseline -Closely monitor urine output and renal function during hospital stay TYPE 2 DIABETES MELLITUS -4 times a day glucometers -Continue usual dose of long-acting insulin -Low-dose sliding scale NovoLog -NovoLog 15 units subcutaneous with each meal MAINTENANCE ISSUES -DVT prophylaxis; current therapy with warfarin should provide adequate DVT prophylaxis -GI prophylaxis; continue PPI therapy -Jacobo catheter; not indicated -Nutrition; consistent carb diet -Nicotine dependence; not required CODE STATUS-FULL CODE ADMISSION STATUS-patient will be admitted to inpatient status, expect at least a 2 night hospital stay for evaluation and management of problems as outlined above. At the time of this admission I do not reasonably expected evaluation and management of this problem will require more than a 96 hour hospital stay. DISPOSITION-anticipate discharge to home after the hospital stay. PRIMARY CARE PROVIDER-
[2017-03-21] MEDS: Linezolid 600 MG in Premix Bag 1 BAG IV SCH (18:38)
[2017-03-21] MEDS: Insulin Detemir 100 Units/ML 3 ML Pen SUBCUT SCH (21:51)
[2017-03-21] MEDS: Pravastatin 20 MG Tab PO SCH (21:53)
[2017-03-21] MEDS ORDERED: Albuterol/Ipratropium 3.0-0.5 MG/3 ML Neb Soln NEB PRN (22:14)
[2017-03-21] MEDS ORDERED: Benzonatate 100 MG Cap PO PRN (22:15)
--- NOTE | 2017-03-21 22:39 | PCM.SN ---
- Free Text/Narrative Note: time: 22:10 call from [address] [place] [address], Mr. Epstein has a cough, requesting medication, no fever. a: cough p: orders: Duoneb premix one neb every 4 hours prn Tessalon pearles tid prn cough Robitussin AC 10ml po every 4 hours prn painful cough continue present plan of care.
[2017-03-22] MEDS: Piperacillin/Tazobactam/Dext 3.375 GM in Premix Bag 1 BAG IV SCH ×4 (00:42→17:28)
[2017-03-22] MEDS: Codeine/guaiFENesin 100mg-10 MG/5 ML Syrup 10 ML Cup PO PRN (00:45)
[2017-03-22] MEDS: Doxycycline 100 MG in Sodium Chloride 0.9% 100 ML IV SCH ×2 (02:42→14:07)
[2017-03-22] MEDS: Acetaminophen/HYDROcodone 325-5 MG Tab PO PRN ×2 (05:00→17:40)
[2017-03-22] MEDS: Linezolid 600 MG in Premix Bag 1 BAG IV SCH ×2 (05:22→18:20)
[2017-03-22] MEDS: Insulin Aspart 100 Units/ML 3 ML Pen SUBCUT SCH ×7 (07:58→21:16)
[2017-03-22] MEDS: Pantoprazole 40 MG Tab.CR PO SCH (08:00)
[2017-03-22] MEDS: Furosemide 40 MG Tab PO SCH ×2 (08:00→17:27)
[2017-03-22] MEDS: Ferrous Sulfate 325 MG Tab PO SCH ×2 (08:01→17:28)
[2017-03-22] MEDS: Levothyroxine 75 MCG Tab PO SCH (08:01)
[2017-03-22] MEDS: Metoprolol Succinate 50 MG Tab.ER PO SCH ×2 (08:02→20:29)
[2017-03-22] MEDS: Aspirin 325 MG Tab.EC PO SCH (08:03)
[2017-03-22] MEDS: Sodium Bicarbonate 650 MG Tab PO SCH ×2 (08:03→20:27)
[2017-03-22] MEDS: cloNIDine 0.1 MG Tab PO SCH ×2 (08:03→20:33)
[2017-03-22] MEDS: amLODIPine 5 MG Tab PO SCH (08:04)
[2017-03-22] MEDS: Allopurinol 300 MG Tab PO SCH (08:04)
[2017-03-22] MEDS: Magnesium Oxide 400 MG Tab PO SCH ×2 (08:04→20:27)
[2017-03-22] MEDS ORDERED: Warfarin 5 MG Tab PO ONE (14:00)
--- NOTE | 2017-03-22 15:42 | PCM.PN ---
- General Info Date of Service: 03/22/17 Subjective Update: Mr. Epstein has felt improved over the past 24 hours with less shortness of breath and cough, sputum no longer blood-tinged. White blood cell count remains normal and he is had only slight temperature elevations over the past [address] scan of the lungs obtained today shows infiltrates in both upper lobes, groundglass in appearance. Appetite seems to be improved and he denies significant abdominal symptoms. No symptoms reported associated with right lower extremity. - Review of Systems General: Reports: Fever, Weakness. Denies: Chills Pulmonary: Reports: Shortness of Breath, Cough, Sputum. Denies: Pleuritic Chest Pain, Hemoptysis, Wheezing Cardiovascular: Reports: Dyspnea on Exertion, Edema. Denies: Chest Pain, Palpitations, Orthopnea, PND, Lightheadedness Gastrointestinal: Reports: No Symptoms - Patient Data Vitals - Most Recent: Last Vital Signs Temp 97.6 F 03/22/17 10:49 Pulse 65 03/22/17 10:49 Resp 18 03/22/17 10:49 BP 135/49 L 03/22/17 10:49 Pulse Ox 93 L 03/22/17 10:49 Weight - Most Recent: 305 lb 9.6 oz I&O - Last 24 Hours: Intake & Output 03/22/17 03/22/17 03/22/17 06:59 14:59 22:59 Intake Total 1010 1310 Output Total 1050 1000 Balance -40 310 Lab Results Last 24 Hours: Laboratory Results - last 24 hr 03/22/17 03/22/17 03/22/17 Range/Units 05:00 05:00 06:00 WBC 7.3 (4.5-11.0) K/uL RBC 2.51 L (4.30-5.90) M/uL Hgb 7.7 L (12.0-15.0) g/dL Hct 25.0 L (40.0-54.0) % MCV 100 H (80-98) fL MCH 31 (27-31) pg MCHC 31 L (32-36) % Plt Count 109 L (150-400) K/uL Neut % (Auto) 80 H (36-66) % Lymph % (Auto) 8 L (24-44) % [place] % (Auto) 10 H (2-6) % Eos % (Auto) 1 L (2-4) % Baso % (Auto) 0 (0-1) % PT 21.8 H (9.5-12.0) sec INR 1.98 H (0.80-1.20) Sodium 140 (140-148) mmol/L Potassium 4.5 (3.6-5.2) mmol/L Chloride 106 (100-108) mmol/L Carbon Dioxide 26 (21-32) mmol/L Anion Gap 8.2 (5.0-14.0) mmol/L BUN 43 H (7-18) mg/dL Creatinine 2.9 H (0.8-1.3) mg/dL Est Cr Clr Drug Dosing 28.18 mL/min Estimated GFR (MDRD) 22 L (>60) Glucose 177 H (74-106) mg/dL Calcium 8.2 L (8.5-10.1) mg/dL Magnesium 1.8 (1.8-2.4) mg/dL John Paul Results Last 24 Hours: Microbiology 03/21/17 12:36 Aerobic Blood Culture - Preliminary Blood - Venous - Lab Draw NO GROWTH AFTER 1 DAY Anaerobic Blood Culture - Preliminary NO GROWTH AFTER 1 DAY 03/21/17 12:30 Aerobic Blood Culture - Preliminary Blood - Arm, Right NO GROWTH AFTER 1 DAY Anaerobic Blood Culture - Preliminary NO GROWTH AFTER 1 DAY 03/21/17 13:51 Gram Stain - Final Sputum - Expectorated 03/21/17 14:30 Influenza Type A Antigen Screen - Final Nasopharyngeal Swab - Nare, Left NEGATIVE INFLUENZA A VIRUS AG Influenza Type B Antigen Screen - Final NEGATIVE INFLUENZA B VIRUS AG Med Orders - Current: Current Medications Acetaminophen (Tylenol Extra Strength) 1,000 mg PO Q6H PRN PRN Reason: Pain Last Admin: 03/21/17 14:34 Dose: 1,000 mg Hydrocodone Bitart/Acetaminophen ([place] 325-5 Mg) 1 tab PO Q4H PRN PRN Reason: Pain (moderate 4-6) Last Admin: 03/22/17 05:00 Dose: 1 tab Albuterol/Ipratropium (Duoneb 3.0-0.5 Mg/3 Ml) 3 ml NEB Q4H PRN PRN Reason: Cough Last Admin: 03/22/17 00:53 Dose: 3 ml Allopurinol (Zyloprim) 150 mg PO DAILY [facility] Last Admin: 03/22/17 08:04 Dose: 150 mg Amlodipine Besylate (Norvasc) 5 mg PO DAILY [facility] Last Admin: 03/22/17 08:04 Dose: 5 mg Aspirin (Ecotrin) 325 mg PO DAILY [facility] Last Admin: 03/22/17 08:03 Dose: 325 mg Benazepril HCl (Lotensin) 5 mg PO DAILY [facility] Last Admin: 03/22/17 08:03 Dose: 5 mg Benzonatate (Tessalon Perles) 200 mg PO TID PRN PRN Reason: Cough Last Admin: 03/22/17 05:00 Dose: 200 mg Clonidine HCl (Catapres) 0.2 mg PO BID [facility] Last Admin: 03/22/17 08:03 Dose: 0.2 mg Ferrous Sulfate (Ferrous Sulfate) 325 mg PO BIDMEALS [facility] Last Admin: 03/22/17 08:01 Dose: 325 mg Furosemide (Lasix) 40 mg PO BID@0800,1600 [facility] Last Admin: 03/22/17 08:00 Dose: 40 mg Guaifenesin/Codeine Phosphate (Robitussin Ac) 10 ml PO Q4H PRN PRN Reason: Cough Last Admin: 03/22/17 00:45 Dose: 10 ml Piperacillin/Tazobactam/ (Dextrose 3.375 gm/ Premix) 50 mls @ 100 mls/hr IV Q6H [facility] Last Admin: 03/22/17 12:18 Dose: 100 mls/hr Doxycycline Hyclate 100 mg/ (Sodium Chloride) 100 mls @ 100 mls/hr IV Q12H [facility] Last Admin: 03/22/17 14:07 Dose: 100 mls/hr Linezolid 600 mg/ Premix 300 mls @ 300 mls/hr IV Q12H [facility] Last Admin: 03/22/17 05:22 Dose: 300 mls/hr Insulin Aspart (Novolog) 15 unit SUBCUT TIDAC [facility] Last Admin: 03/22/17 12:18 Dose: 15 units Insulin Aspart (Novolog) 0 unit SUBCUT 0730,1130,1630,2100 [facility] PRN Reason: Protocol Last Admin: 03/22/17 12:19 Dose: 3 units Insulin Detemir (Levemir) 30 unit SUBCUT BEDTIME [facility] Last Admin: 03/21/17 21:51 Dose: 30 units Levothyroxine Sodium (Levothyroxine) 75 mcg PO ACBREAKFAST [facility] Last Admin: 03/22/17 08:01 Dose: 75 mcg Magnesium Oxide (Magnesium Oxide) 400 mg PO BID [facility] Last Admin: 03/22/17 08:04 Dose: 400 mg Metoprolol Succinate (Toprol Xl) 100 mg PO BID [facility] Last Admin: 03/22/17 08:02 Dose: 100 mg Ondansetron HCl (Zofran Odt) 4 mg PO Q6H PRN PRN Reason: Nausea able to take PO Last Admin: 03/17/17 17:15 Dose: 4 mg Pantoprazole Sodium (Protonix) 40 mg PO ACBREAKFAST [facility] Last Admin: 03/22/17 08:00 Dose: 40 mg Pravastatin Sodium (Pravachol) 40 mg PO BEDTIME [facility] Last Admin: 03/21/17 21:53 Dose: 40 mg Senna/Docusate Sodium (Senna Plus) 1 tab PO BID PRN PRN Reason: Constipation Sodium Bicarbonate (Sodium Bicarbonate) 1,300 mg PO BID [facility] Last Admin: 03/22/17 08:03 Dose: 1,300 mg Discontinued Medications Acetaminophen (Tylenol) 650 mg PO NOW ONE Stop: 03/17/17 03:27 Last Admin: 03/17/17 03:56 Dose: 650 mg Allopurinol (Zyloprim) 300 mg PO DAILY [facility] Last Admin: 03/19/17 08:05 Dose: 300 mg Furosemide (Lasix) 80 mg IVPUSH ONETIME ONE Stop: 03/21/17 17:01 Last Admin: 03/21/17 17:07 Dose: 80 mg Furosemide (Lasix) 60 mg IVPUSH ONETIME ONE Stop: 03/22/17 17:01 Heparin Sodium (Porcine) (Heparin Sodium) 5,000 units SUBCUT Q8H [facility] Last Admin: 03/17/17 06:09 Dose: 5,000 units Sodium Chloride (Normal Saline) 1,000 mls @ 150 mls/hr IV ASDIRECTED [facility] Last Admin: 03/17/17 02:48 Dose: 999 mls/hr Sodium Chloride (Normal Saline) 1,000 mls @ 999 mls/hr IV ASDIRECTED [facility] Last Admin: 03/17/17 02:48 Dose: 999 mls/hr Sodium Chloride (Normal Saline) 1,000 mls @ 250 mls/hr IV ASDIRECTED [facility] Last Admin: 03/17/17 04:00 Dose: 250 mls/hr Piperacillin Sod/Tazobactam (Sod 3.375 gm/ Sodium Chloride) 50 mls @ 100 mls/ hr IV Q6H [facility] Last Admin: 03/17/17 05:07 Dose: 100 mls/hr Vancomycin HCl 1 gm/ Sodium (Chloride) 250 mls @ 150 mls/hr IV Q24H [facility] Last Admin: 03/17/17 06:10 Dose: 150 mls/hr Linezolid 600 mg/ Premix 300 mls @ 300 mls/hr IV Q12H [facility] Last Admin: 03/20/17 08:35 Dose: 300 mls/hr Magnesium Sulfate 2 gm/ Premix 50 mls @ 25 mls/hr IV ONETIME ONE Stop: 03/17/17 13:59 Last Admin: 03/17/17 12:52 Dose: 25 mls/hr Sodium Chloride (Normal Saline) 1,000 mls @ 100 mls/hr IV ASDIRECTED [facility] Last Admin: 03/18/17 16:20 Dose: 100 mls/hr Sodium Chloride (Normal Saline) 1,000 mls @ 125 mls/hr IV ASDIRECTED [facility] Insulin Aspart (Novolog) 0 unit SUBCUT BIDAC [facility] PRN Reason: Protocol Last Admin: 03/17/17 23:01 Dose: 2 units Insulin Human Lispro (Humalog) 0 unit SUBCUT BIDAC [facility] PRN Reason: Protocol Metoprolol Succinate (Toprol Xl) 100 mg PO DAILY [facility] Last Admin: 03/17/17 08:56 Dose: 100 mg Sodium Polystyrene Sulfonate (Kayexalate) 30 gm PO ONETIME ONE Stop: 03/17/17 12:36 Last Admin: 03/17/17 14:02 Dose: 30 gm Sodium Polystyrene Sulfonate (Kayexalate) 30 gm PO ONETIME ONE Stop: 03/18/17 09:31 Last Admin: 03/18/17 09:36 Dose: 30 gm Warfarin Sodium (Coumadin) 10 mg PO ASDIRECTED [facility] Warfarin Sodium (Coumadin) 5 mg PO ASDIRECTED [facility] Warfarin Sodium (Coumadin) 10 mg PO ASDIRECTED [facility] Warfarin Sodium (Coumadin) 10 mg PO MoTuWe@1300 [facility] Last Admin: 03/17/17 17:08 Dose: 10 mg Warfarin Sodium (Coumadin) 5 mg PO SuThFrSa@1300 [facility] Warfarin Sodium (Coumadin) 5 mg PO DAILY@1300 [facility] Last Admin: 03/18/17 12:15 Dose: 5 mg Warfarin Sodium (Coumadin) 5 mg PO ONETIME ONE Stop: 03/20/17 13:01 Last Admin: 03/20/17 12:08 Dose: 5 mg Warfarin Sodium (Coumadin) 5 mg PO ONETIME ONE Stop: 03/21/17 13:01 Last Admin: 03/21/17 13:34 Dose: 5 mg Warfarin Sodium (Coumadin) 10 mg PO ONETIME ONE Stop: 03/22/17 14:01 Last Admin: 03/22/17 14:07 Dose: 10 mg - Exam Quality Assessment: Supplemental Oxygen, DVT Prophylaxis General: Alert, Oriented, Mild Distress Lungs: Clear to Auscultation, Normal Respiratory Effort Cardiovascular: Regular Rate, Regular Rhythm, No Murmurs GI/Abdominal Exam: Soft, Non-Tender, No Organomegaly, No Distention Extremities: Non-Tender, Pedal Edema Skin: Warm, Dry - Problem List Review Problem List Initiated/Reviewed/Updated: Yes - My Orders Last 24 Hours: My Active Orders 03/21/17 18:00 Linezolid [Zyvox] 600 mg Premix Bag 1 bag IV Q12H 03/22/17 12:33 Chest wo Cont [CT] Stat 03/22/17 17:00 HGB [HEMOGLOBIN] [HEME] Routine 03/23/17 05:00 BASIC METABOLIC PANEL,BMP [CHEM] Timed CBC WITH AUTO DIFF [HEME] Timed MAGNESIUM [CHEM] Timed 03/23/17 05:11 INR,PT,PROTHROMBIN TIME [COAG] AM - Plan Plan:: ASSESSMENT AND PLAN CELLULITIS RIGHT LOWER EXTREMITY- cellulitis resolved, Unna boot in place -Blood cultures negative thus far -Continue IV Zosyn in light of new temperature elevation -Saline lock IV BILATERAL PNEUMONIA-associated with symptoms of respiratory compromise including shortness of breath and cough as well as fever. Chest x-ray suggested pulmonary edema, CT scan of the chest today shows bilateral upper lobe infiltrates consistent with atypical infection, groundglass appearance. Symptomatically improved over the past 24 hours with current management -Blood cultures and sputum cultures from yesterday pending Continue doxycycline and Zosyn pending culture results HYPERKALEMIA -resolved after 2 doses of Kayexalate -Saline lock IV CHRONIC KIDNEY DISEASE STAGE III-creatinine increased slightly from recent baseline, continue to monitor -Closely monitor urine output and renal function during hospital stay TYPE 2 DIABETES MELLITUS -4 times a day glucometers -Continue usual dose of long-acting insulin -Low-dose sliding scale NovoLog -NovoLog 15 units subcutaneous with each meal MAINTENANCE ISSUES -DVT prophylaxis; current therapy with warfarin should provide adequate DVT prophylaxis -GI prophylaxis; continue PPI therapy -Jacobo catheter; not indicated -Nutrition; consistent carb diet -Nicotine dependence; not required CODE STATUS-FULL CODE ADMISSION STATUS-patient will be admitted to inpatient status, expect at least a 2 night hospital stay for evaluation and management of problems as outlined above. At the time of this admission I do not reasonably expected evaluation and management of this problem will require more than a 96 hour hospital stay. DISPOSITION-anticipate discharge to home after the hospital stay. PRIMARY CARE PROVIDER-
[2017-03-22] MEDS ORDERED: Furosemide 100 MG/10 ML SDV IVPUSH ONE (17:00)
[2017-03-22] MEDS: Pravastatin 20 MG Tab PO SCH (20:29)
[2017-03-22] MEDS: Insulin Detemir 100 Units/ML 3 ML Pen SUBCUT SCH (21:15)
[2017-03-23] MEDS: Piperacillin/Tazobactam/Dext 3.375 GM in Premix Bag 1 BAG IV SCH ×4 (00:31→17:45)
[2017-03-23] MEDS: Doxycycline 100 MG in Sodium Chloride 0.9% 100 ML IV SCH ×2 (03:36→14:03)
[2017-03-23] MEDS: Linezolid 600 MG in Premix Bag 1 BAG IV SCH (06:02)
[2017-03-23] MEDS: Sodium Bicarbonate 650 MG Tab PO SCH ×2 (08:14→20:38)
[2017-03-23] MEDS: Magnesium Oxide 400 MG Tab PO SCH ×2 (08:15→20:36)
[2017-03-23] MEDS: Pantoprazole 40 MG Tab.CR PO SCH (08:15)
[2017-03-23] MEDS: Aspirin 325 MG Tab.EC PO SCH (08:15)
[2017-03-23] MEDS: cloNIDine 0.1 MG Tab PO SCH ×2 (08:15→20:35)
[2017-03-23] MEDS: Levothyroxine 75 MCG Tab PO SCH (08:15)
[2017-03-23] MEDS: Metoprolol Succinate 50 MG Tab.ER PO SCH ×2 (08:16→20:38)
[2017-03-23] MEDS: amLODIPine 5 MG Tab PO SCH (08:16)
[2017-03-23] MEDS: Ferrous Sulfate 325 MG Tab PO SCH ×2 (08:16→16:45)
[2017-03-23] MEDS: Insulin Aspart 100 Units/ML 3 ML Pen SUBCUT SCH ×7 (08:17→20:46)
[2017-03-23] MEDS: Furosemide 40 MG Tab PO SCH ×2 (08:17→16:45)
[2017-03-23] MEDS: Allopurinol 300 MG Tab PO SCH (08:24)
[2017-03-23] MEDS ORDERED: Albuterol 0.083% 2.5 MG/3 ML Neb Soln NEB PRN (11:19)
--- NOTE | 2017-03-23 13:54 | PCM.PN ---
- General Info Date of Service: 03/23/17 Subjective Update: Mr. Epstein has noted further modest improvement over last 24 hours with less shortness of breath and cough. Vital signs have remained stable and he has been afebrile. Denies significant pain in his right leg, appetite is been good and energy level seems to be improving. Hemoglobin further decrease this morning and he will be transfused one unit of red blood cells. There is no evidence of active bleeding. Functional Status: Reports: Tolerating Diet, Urinating - Review of Systems General: Reports: Weakness. Denies: Fever, Chills Pulmonary: Reports: Shortness of Breath, Cough. Denies: Pleuritic Chest Pain, Sputum, Hemoptysis, Wheezing Cardiovascular: Reports: Dyspnea on Exertion, Edema. Denies: Chest Pain, Palpitations, Orthopnea, PND Gastrointestinal: Reports: No Symptoms Musculoskeletal: Reports: Foot Pain - Patient Data Vitals - Most Recent: Last Vital Signs Temp 97.3 F 03/23/17 13:16 Pulse 73 03/23/17 13:16 Resp 16 03/23/17 13:16 BP 141/47 H 03/23/17 13:16 Pulse Ox 95 03/23/17 07:08 Weight - Most Recent: 306 lb 12.8 oz I&O - Last 24 Hours: Intake & Output 03/22/17 03/23/17 03/23/17 22:59 06:59 14:59 Intake Total 350 1250 445 Output Total 450 550 Balance 350 800 -105 Lab Results Last 24 Hours: Laboratory Results - last 24 hr 03/22/17 03/23/17 03/23/17 Range/Units 17:00 05:30 05:30 WBC 7.8 (4.5-11.0) K/uL RBC 2.44 L (4.30-5.90) M/uL Hgb 8.1 L 7.5 L (12.0-15.0) g/dL Hct 24.4 L (40.0-54.0) % MCV 100 H (80-98) fL MCH 31 (27-31) pg MCHC 31 L (32-36) % Plt Count 120 L (150-400) K/uL Neut % (Auto) 79 H (36-66) % Lymph % (Auto) 12 L (24-44) % [place] % (Auto) 7 H (2-6) % Eos % (Auto) 2 (2-4) % Baso % (Auto) 0 (0-1) % PT 26.4 H (9.5-12.0) sec INR 2.38 H (0.80-1.20) Sodium (140-148) mmol/L Potassium (3.6-5.2) mmol/L Chloride (100-108) mmol/L Carbon Dioxide (21-32) mmol/L Anion Gap (5.0-14.0) mmol/L BUN (7-18) mg/dL Creatinine (0.8-1.3) mg/dL Est Cr Clr Drug Dosing mL/min Estimated GFR (MDRD) (>60) Glucose (74-106) mg/dL Calcium (8.5-10.1) mg/dL Magnesium (1.8-2.4) mg/dL Blood Type Gel Antibody Screen Crossmatch 03/23/17 03/23/17 Range/Units 05:30 07:45 WBC (4.5-11.0) K/uL RBC (4.30-5.90) M/uL Hgb (12.0-15.0) g/dL Hct (40.0-54.0) % MCV (80-98) fL MCH (27-31) pg MCHC (32-36) % Plt Count (150-400) K/uL Neut % (Auto) (36-66) % Lymph % (Auto) (24-44) % [place] % (Auto) (2-6) % Eos % (Auto) (2-4) % Baso % (Auto) (0-1) % PT (9.5-12.0) sec INR (0.80-1.20) Sodium 142 (140-148) mmol/L Potassium 4.3 (3.6-5.2) mmol/L Chloride 107 (100-108) mmol/L Carbon Dioxide 25 (21-32) mmol/L Anion Gap 10.5 (5.0-14.0) mmol/L BUN 43 H (7-18) mg/dL Creatinine 3.0 H (0.8-1.3) mg/dL Est Cr Clr Drug Dosing 27.24 mL/min Estimated GFR (MDRD) 21 L (>60) Glucose 107 H (74-106) mg/dL Calcium 8.6 (8.5-10.1) mg/dL Magnesium 1.9 (1.8-2.4) mg/dL Blood Type O POSITIVE Gel Antibody Screen Negative Crossmatch See Detail John Paul Results Last 24 Hours: Microbiology 03/21/17 12:36 Aerobic Blood Culture - Preliminary Blood - Venous - Lab Draw NO GROWTH AFTER 2 DAYS Anaerobic Blood Culture - Preliminary NO GROWTH AFTER 2 DAYS 03/21/17 12:30 Aerobic Blood Culture - Preliminary Blood - Arm, Right NO GROWTH AFTER 2 DAYS Anaerobic Blood Culture - Preliminary NO GROWTH AFTER 2 DAYS 03/21/17 13:51 Gram Stain - Final Sputum - Expectorated Respiratory Culture - Preliminary NORMAL RESPIRATORY [place] 1 DAY Med Orders - Current: Current Medications Acetaminophen (Tylenol Extra Strength) 1,000 mg PO Q6H PRN PRN Reason: Pain Last Admin: 03/21/17 14:34 Dose: 1,000 mg Hydrocodone Bitart/Acetaminophen ([place] 325-5 Mg) 1 tab PO Q4H PRN PRN Reason: Pain (moderate 4-6) Last Admin: 03/22/17 17:40 Dose: 1 tab Albuterol (Proventil Neb Soln) 2.5 mg NEB Q4H PRN PRN Reason: Dyspnea Albuterol/Ipratropium (Duoneb 3.0-0.5 Mg/3 Ml) 3 ml NEB QIDRT [facility] Allopurinol (Zyloprim) 150 mg PO DAILY [facility] Last Admin: 03/23/17 08:24 Dose: 150 mg Amlodipine Besylate (Norvasc) 5 mg PO DAILY [facility] Last Admin: 03/23/17 08:16 Dose: 5 mg Aspirin (Ecotrin) 325 mg PO DAILY [facility] Last Admin: 03/23/17 08:15 Dose: 325 mg Benazepril HCl (Lotensin) 5 mg PO DAILY [facility] Last Admin: 03/23/17 08:15 Dose: 5 mg Benzonatate (Tessalon Perles) 200 mg PO TID PRN PRN Reason: Cough Last Admin: 03/22/17 05:00 Dose: 200 mg Clonidine HCl (Catapres) 0.2 mg PO BID [facility] Last Admin: 03/23/17 08:15 Dose: 0.2 mg Ferrous Sulfate ([facility] S[facility]) [facility] Last Admin: 03/23/17 08:16 Dose: 325 mg Furosemide (Lasix) 40 mg PO BID@0800,1600 [facility] Last Admin: 03/23/17 08:17 Dose: 40 mg Guaifenesin/Codeine Phosphate (Robitussin Ac) 10 ml PO Q4H PRN PRN Reason: Cough Last Admin: 03/22/17 00:45 Dose: 10 ml Piperacillin/Tazobactam/ (Dextrose 3.375 gm/ Premix) 50 mls @ 100 mls/hr IV Q6H [facility] Last Admin: 03/23/17 12:25 Dose: 100 mls/hr Doxycycline Hyclate 100 mg/ (Sodium Chloride) 100 mls @ 100 mls/hr IV Q12H [facility] Last Admin: 03/23/17 03:36 Dose: 100 mls/hr Insulin Aspart (Novolog) 15 unit SUBCUT TIDAC [facility] Last Admin: 03/23/17 12:31 Dose: 15 units Insulin Aspart (Novolog) 0 unit SUBCUT 0730,1130,1630,2100 [facility] PRN Reason: Protocol Last Admin: 03/23/17 12:32 Dose: 1 units Insulin Detemir (Levemir) 30 unit SUBCUT BEDTIME [facility] Last Admin: 03/22/17 21:15 Dose: 30 units Levothyroxine Sodium (Levothyroxine) 75 mcg PO ACBREAKFAST [facility] Last Admin: 03/23/17 08:15 Dose: 75 mcg Magnesium Oxide (Magnesium Oxide) 400 mg PO BID [facility] Last Admin: 03/23/17 08:15 Dose: 400 mg Metoprolol Succinate (Toprol Xl) 100 mg PO BID [facility] Last Admin: 03/23/17 08:16 Dose: 100 mg Ondansetron HCl (Zofran Odt) 4 mg PO Q6H PRN PRN Reason: Nausea able to take PO Last Admin: 03/17/17 17:15 Dose: 4 mg Pantoprazole Sodium (Protonix) 40 mg PO ACBREAKFAST [facility] Last Admin: 03/23/17 08:15 Dose: 40 mg Pravastatin Sodium (Pravachol) 40 mg PO BEDTIME [facility] Last Admin: 03/22/17 20:29 Dose: 40 mg Senna/Docusate Sodium (Senna Plus) 1 tab PO BID PRN PRN Reason: Constipation Sodium Bicarbonate (Sodium Bicarbonate) 1,300 mg PO BID [facility] Last Admin: 03/23/17 08:14 Dose: 1,300 mg Warfarin Sodium (Coumadin) 5 mg PO ONETIME ONE Stop: 03/23/17 13:41 Discontinued Medications Acetaminophen (Tylenol) 650 mg PO NOW ONE Stop: 03/17/17 03:27 Last Admin: 03/17/17 03:56 Dose: 650 mg Albuterol/Ipratropium (Duoneb 3.0-0.5 Mg/3 Ml) 3 ml NEB Q4H PRN PRN Reason: Cough Last Admin: 03/22/17 00:53 Dose: 3 ml Allopurinol (Zyloprim) 300 mg PO DAILY [facility] Last Admin: 03/19/17 08:05 Dose: 300 mg Furosemide (Lasix) 80 mg IVPUSH ONETIME ONE Stop: 03/21/17 17:01 Last Admin: 03/21/17 17:07 Dose: 80 mg Furosemide (Lasix) 60 mg IVPUSH ONETIME ONE Stop: 03/22/17 17:01 Heparin Sodium (Porcine) (Heparin Sodium) 5,000 units SUBCUT Q8H [facility] Last Admin: 03/17/17 06:09 Dose: 5,000 units Sodium Chloride (Normal Saline) 1,000 mls @ 150 mls/hr IV ASDIRECTED [facility] Last Admin: 03/17/17 02:48 Dose: 999 mls/hr Sodium Chloride (Normal Saline) 1,000 mls @ 999 mls/hr IV ASDIRECTED [facility] Last Admin: 03/17/17 02:48 Dose: 999 mls/hr Sodium Chloride (Normal Saline) 1,000 mls @ 250 mls/hr IV ASDIRECTED [facility] Last Admin: 03/17/17 04:00 Dose: 250 mls/hr Piperacillin Sod/Tazobactam (Sod 3.375 gm/ Sodium Chloride) 50 mls @ 100 mls/ hr IV Q6H [facility] Last Admin: 03/17/17 05:07 Dose: 100 mls/hr Vancomycin HCl 1 gm/ Sodium (Chloride) 250 mls @ 150 mls/hr IV Q24H [facility] Last Admin: 03/17/17 06:10 Dose: 150 mls/hr Linezolid 600 mg/ Premix 300 mls @ 300 mls/hr IV Q12H [facility] Last Admin: 03/20/17 08:35 Dose: 300 mls/hr Magnesium Sulfate 2 gm/ Premix 50 mls @ 25 mls/hr IV ONETIME ONE Stop: 03/17/17 13:59 Last Admin: 03/17/17 12:52 Dose: 25 mls/hr Sodium Chloride (Normal Saline) 1,000 mls @ 100 mls/hr IV ASDIRECTED [facility] Last Admin: 03/18/17 16:20 Dose: 100 mls/hr Sodium Chloride (Normal Saline) 1,000 mls @ 125 mls/hr IV ASDIRECTED [facility] Linezolid 600 mg/ Premix 300 mls @ 300 mls/hr IV Q12H [facility] Last Admin: 03/23/17 06:02 Dose: 300 mls/hr Insulin Aspart (Novolog) 0 unit SUBCUT BIDAC [facility] PRN Reason: Protocol Last Admin: 03/17/17 23:01 Dose: 2 units Insulin Human Lispro (Humalog) 0 unit SUBCUT BIDAC [facility] PRN Reason: Protocol Metoprolol Succinate (Toprol Xl) 100 mg PO DAILY [facility] Last Admin: 03/17/17 08:56 Dose: 100 mg Sodium Polystyrene Sulfonate (Kayexalate) 30 gm PO ONETIME ONE Stop: 03/17/17 12:36 Last Admin: 03/17/17 14:02 Dose: 30 gm Sodium Polystyrene Sulfonate (Kayexalate) 30 gm PO ONETIME ONE Stop: 03/18/17 09:31 Last Admin: 03/18/17 09:36 Dose: 30 gm Warfarin Sodium (Coumadin) 10 mg PO ASDIRECTED [facility] Warfarin Sodium (Coumadin) 5 mg PO ASDIRECTED [facility] Warfarin Sodium (Coumadin) 10 mg PO ASDIRECTED [facility] Warfarin Sodium (Coumadin) 10 mg PO MoTuWe@1300 [facility] Last Admin: 03/17/17 17:08 Dose: 10 mg Warfarin Sodium (Coumadin) 5 mg PO SuThFrSa@1300 [facility] Warfarin Sodium (Coumadin) 5 mg PO DAILY@1300 [facility] Last Admin: 03/18/17 12:15 Dose: 5 mg Warfarin Sodium (Coumadin) 5 mg PO ONETIME ONE Stop: 03/20/17 13:01 Last Admin: 03/20/17 12:08 Dose: 5 mg Warfarin Sodium (Coumadin) 5 mg PO ONETIME ONE Stop: 03/21/17 13:01 Last Admin: 03/21/17 13:34 Dose: 5 mg Warfarin Sodium (Coumadin) 10 mg PO ONETIME ONE Stop: 03/22/17 14:01 Last Admin: 03/22/17 14:07 Dose: 10 mg - Exam Quality Assessment: Supplemental Oxygen, DVT Prophylaxis General: Alert, Oriented, Cooperative, No Acute Distress Lungs: Clear to Auscultation, Normal Respiratory Effort Cardiovascular: Regular Rate, No Murmurs, Irregular Rhythm GI/Abdominal Exam: Soft, Non-Tender, No Organomegaly, No Distention Extremities: Non-Tender, Pedal Edema Skin: Warm, Dry - Problem List Review Problem List Initiated/Reviewed/Updated: Yes - My Orders Last 24 Hours: My Active Orders 03/24/17 05:00 BASIC METABOLIC PANEL,BMP [CHEM] Timed CBC WITH AUTO DIFF [HEME] Timed MAGNESIUM [CHEM] Timed 03/24/17 05:11 INR,PT,PROTHROMBIN TIME [COAG] AM 03/23/17 07:45 Transfuse Red Blood Cells [COMM] Urgent 03/23/17 11:19 RT Aerosol Therapy [RC] ASDIRECTED Albuterol [Proventil Neb Soln] 2.5 mg NEB Q4H PRN 03/23/17 13:40 Warfarin [Coumadin] 5 mg PO ONETIME ONE 03/23/17 15:00 Albuterol/Ipratropium [DuoNeb 3.0-0.5 MG/3 ML] 3 ml NEB QIDRT - Plan Plan:: ASSESSMENT AND PLAN CELLULITIS RIGHT LOWER EXTREMITY- cellulitis resolved, Unna boot in place -Blood cultures negative thus far -Discontinue Zosyn -Augmentin 875 one by mouth twice a day -Saline lock IV BILATERAL PNEUMONIA-improving with current management, sputum cultures growing only normal respiratory hosea, blood cultures are negative. Fever has resolved, white blood cell count within normal range -Blood cultures from the pending -Discontinue Zyvox Continue doxycycline ANEMIA-chronic likely secondary to chronic disease as well as significant chronic kidney disease. Hemoglobin has dropped slowly throughout hospital stay with no evidence of active bleeding. -Transfuse one unit of red blood cells today -Recheck hemoglobin in a.m. HYPERKALEMIA -resolved CHRONIC KIDNEY DISEASE STAGE III-creatinine increased slightly from recent baseline, continue to monitor -Closely monitor urine output and renal function during hospital stay TYPE 2 DIABETES MELLITUS -4 times a day glucometers -Continue usual dose of long-acting insulin -Low-dose sliding scale NovoLog -NovoLog 15 units subcutaneous with each meal MAINTENANCE ISSUES -DVT prophylaxis; current therapy with warfarin should provide adequate DVT prophylaxis -GI prophylaxis; continue PPI therapy -Jacobo catheter; not indicated -Nutrition; consistent carb diet -Nicotine dependence; not required CODE STATUS-FULL CODE ADMISSION STATUS-patient will be admitted to inpatient status, expect at least a 2 night hospital stay for evaluation and management of problems as outlined above. At the time of this admission I do not reasonably expected evaluation and management of this problem will require more than a 96 hour hospital stay. DISPOSITION-anticipate discharge to home after the hospital stay. PRIMARY CARE PROVIDER-
[2017-03-23] MEDS ORDERED: Warfarin 5 MG Tab PO ONE (14:30)
[2017-03-23] MEDS: Albuterol/Ipratropium 3.0-0.5 MG/3 ML Neb Soln NEB SCH ×2 (14:55→20:36)
[2017-03-23] MEDS ORDERED: Warfarin 5 MG Tab ONE (16:39)
[2017-03-23] MEDS: Pravastatin 20 MG Tab PO SCH (20:38)
[2017-03-23] MEDS: Acetaminophen/HYDROcodone 325-5 MG Tab PO PRN (20:39)
[2017-03-23] MEDS: Insulin Detemir 100 Units/ML 3 ML Pen SUBCUT SCH (20:45)
[2017-03-24] MEDS: Piperacillin/Tazobactam/Dext 3.375 GM in Premix Bag 1 BAG IV SCH ×5 (01:06→23:36)
[2017-03-24] MEDS: Doxycycline 100 MG in Sodium Chloride 0.9% 100 ML IV SCH ×2 (02:29→15:43)
[2017-03-24] MEDS: Albuterol/Ipratropium 3.0-0.5 MG/3 ML Neb Soln NEB SCH ×4 (07:23→21:50)
[2017-03-24] MEDS: Furosemide 40 MG Tab PO SCH ×2 (07:40→15:46)
[2017-03-24] MEDS: Levothyroxine 75 MCG Tab PO SCH (07:40)
[2017-03-24] MEDS: Pantoprazole 40 MG Tab.CR PO SCH (07:41)
[2017-03-24] MEDS: Ferrous Sulfate 325 MG Tab PO SCH ×2 (07:41→16:59)
[2017-03-24] MEDS: Insulin Aspart 100 Units/ML 3 ML Pen SUBCUT SCH ×7 (07:42→21:48)
[2017-03-24] MEDS: Allopurinol 300 MG Tab PO SCH (09:20)
[2017-03-24] MEDS: Metoprolol Succinate 50 MG Tab.ER PO SCH ×2 (09:20→21:49)
[2017-03-24] MEDS: cloNIDine 0.1 MG Tab PO SCH ×2 (09:20→21:49)
[2017-03-24] MEDS: Sodium Bicarbonate 650 MG Tab PO SCH ×2 (09:21→21:48)
[2017-03-24] MEDS: Magnesium Oxide 400 MG Tab PO SCH ×2 (09:21→21:55)
[2017-03-24] MEDS: Aspirin 325 MG Tab.EC PO SCH (09:22)
[2017-03-24] MEDS: amLODIPine 5 MG Tab PO SCH (09:22)
--- NOTE | 2017-03-24 14:00 | PCM.PN ---
- General Info Date of Service: 03/24/17 Functional Status: Reports: Pain Controlled, Tolerating Diet - Review of Systems General: Denies: Fever Pulmonary: Reports: Shortness of Breath, Cough Musculoskeletal: Reports: Leg Pain Systems Review Comment:: No acute events overnight. No fevers. Residual right leg pain but this is stable to slowly improving. Still has an Ayanna boot in place. Still requiring supplemental oxygen and feels short of breath with any activity. He has a productive cough with brown to blood tinged sputum. No abdominal pain or diarrhea at this time. - Patient Data Vitals - Most Recent: Last Vital Signs Temp 36.5 C 03/24/17 11:13 Pulse 95 03/24/17 11:13 Resp 17 03/24/17 11:13 BP 169/55 H 03/24/17 11:13 Pulse Ox 92 L 03/24/17 11:13 Weight - Most Recent: 139.162 kg I&O - Last 24 Hours: Intake & Output 03/23/17 03/24/17 03/24/17 22:59 06:59 14:59 Intake Total 1855 200 860 Output Total 500 1100 Balance 1355 -900 860 Lab Results Last 24 Hours: Laboratory Results - last 24 hr 03/24/17 03/24/17 03/24/17 Range/Units 05:00 05:00 05:11 WBC 6.2 (4.5-11.0) K/uL RBC 2.77 L (4.30-5.90) M/uL Hgb 8.4 L (12.0-15.0) g/dL Hct 27.4 L (40.0-54.0) % MCV 99 H (80-98) fL MCH 30 (27-31) pg MCHC 31 L (32-36) % Plt Count 149 L (150-400) K/uL Neut % (Auto) 75 H (36-66) % Lymph % (Auto) 13 L (24-44) % [place] % (Auto) 9 H (2-6) % Eos % (Auto) 3 (2-4) % Baso % (Auto) 1 (0-1) % PT 33.3 H (9.5-12.0) sec INR 2.97 H (0.80-1.20) Sodium 141 (140-148) mmol/L Potassium 4.3 (3.6-5.2) mmol/L Chloride 106 (100-108) mmol/L Carbon Dioxide 25 (21-32) mmol/L Anion Gap 10.4 (5.0-14.0) mmol/L BUN 47 H (7-18) mg/dL Creatinine 3.2 H (0.8-1.3) mg/dL Est Cr Clr Drug Dosing 25.54 mL/min Estimated GFR (MDRD) 20 L (>60) Glucose 203 H (74-106) mg/dL Calcium 8.7 (8.5-10.1) mg/dL Magnesium 1.8 (1.8-2.4) mg/dL John Paul Results Last 24 Hours: Microbiology 03/21/17 12:36 Aerobic Blood Culture - Preliminary Blood - Venous - Lab Draw NO GROWTH AFTER 3 DAYS Anaerobic Blood Culture - Preliminary NO GROWTH AFTER 3 DAYS 03/21/17 12:30 Aerobic Blood Culture - Preliminary Blood - Arm, Right NO GROWTH AFTER 3 DAYS Anaerobic Blood Culture - Preliminary NO GROWTH AFTER 3 DAYS 03/21/17 13:51 Gram Stain - Final Sputum - Expectorated Respiratory Culture - Final NORMAL RESPIRATORY [place] 2 DAYS Med Orders - Current: Current Medications Acetaminophen (Tylenol Extra Strength) 1,000 mg PO Q6H PRN PRN Reason: Pain Last Admin: 03/21/17 14:34 Dose: 1,000 mg Hydrocodone Bitart/Acetaminophen ([place] 325-5 Mg) 1 tab PO Q4H PRN PRN Reason: Pain (moderate 4-6) Last Admin: 03/23/17 20:39 Dose: 1 tab Albuterol (Proventil Neb Soln) 2.5 mg NEB Q4H PRN PRN Reason: Dyspnea Albuterol/Ipratropium (Duoneb 3.0-0.5 Mg/3 Ml) 3 ml NEB QIDRT [facility] Last Admin: 03/24/17 10:48 Dose: 3 ml Allopurinol (Zyloprim) 150 mg PO DAILY [facility] Last Admin: 03/24/17 09:20 Dose: 150 mg Amlodipine Besylate (Norvasc) 5 mg PO DAILY [facility] Last Admin: 03/24/17 09:22 Dose: 5 mg Aspirin (Ecotrin) 325 mg PO DAILY [facility] Last Admin: 03/24/17 09:22 Dose: 325 mg Benazepril HCl (Lotensin) 5 mg PO DAILY [facility] Last Admin: 03/24/17 09:21 Dose: 5 mg Benzonatate (Tessalon Perles) 200 mg PO TID PRN PRN Reason: Cough Last Admin: 03/22/17 05:00 Dose: 200 mg Clonidine HCl (Catapres) 0.2 mg PO BID [facility] Last Admin: 03/24/17 09:20 Dose: 0.2 mg Ferrous Sulfate (Ferrous Sulfate) 325 mg PO BIDMEALS [facility] Last Admin: 03/24/17 07:41 Dose: 325 mg Furosemide (Lasix) 40 mg PO BID@0800,1600 [facility] Last Admin: 03/24/17 07:40 Dose: 40 mg Guaifenesin/Codeine Phosphate (Robitussin Ac) 10 ml PO Q4H PRN PRN Reason: Cough Last Admin: 03/22/17 00:45 Dose: 10 ml Piperacillin/Tazobactam/ (Dextrose 3.375 gm/ Premix) 50 mls @ 100 mls/hr IV Q6H [facility] Last Admin: 03/24/17 12:40 Dose: 100 mls/hr Doxycycline Hyclate 100 mg/ (Sodium Chloride) 100 mls @ 100 mls/hr IV Q12H [facility] Last Admin: 03/24/17 02:29 Dose: 100 mls/hr Insulin Aspart (Novolog) 15 unit SUBCUT TIDAC [facility] Last Admin: 03/24/17 11:30 Dose: 15 units Insulin Aspart (Novolog) 0 unit SUBCUT 0730,1130,1630,2100 [facility] PRN Reason: Protocol Last Admin: 03/24/17 11:30 Dose: 2 units Insulin Detemir (Levemir) 30 unit SUBCUT BEDTIME [facility] Last Admin: 03/23/17 20:45 Dose: 30 units Levothyroxine Sodium (Levothyroxine) 75 mcg PO ACBREAKFAST [facility] Last Admin: 03/24/17 07:40 Dose: 75 mcg Magnesium Oxide (Magnesium Oxide) 400 mg PO BID [facility] Last Admin: 03/24/17 09:21 Dose: 400 mg Metoprolol Succinate (Toprol Xl) 100 mg PO BID [facility] Last Admin: 03/24/17 09:20 Dose: 100 mg Ondansetron HCl (Zofran Odt) 4 mg PO Q6H PRN PRN Reason: Nausea able to take PO Last Admin: 03/17/17 17:15 Dose: 4 mg Pantoprazole Sodium (Protonix) 40 mg PO ACBREAKFAST [facility] Last Admin: 03/24/17 07:41 Dose: 40 mg Pravastatin Sodium (Pravachol) 40 mg PO BEDTIME [facility] Last Admin: 03/23/17 20:38 Dose: 40 mg Senna/Docusate Sodium (Senna Plus) 1 tab PO BID PRN PRN Reason: Constipation Sodium Bicarbonate (Sodium Bicarbonate) 1,300 mg PO BID [facility] Last Admin: 03/24/17 09:21 Dose: 1,300 mg Discontinued Medications Acetaminophen (Tylenol) 650 mg PO NOW ONE Stop: 03/17/17 03:27 Last Admin: 03/17/17 03:56 Dose: 650 mg Albuterol/Ipratropium (Duoneb 3.0-0.5 Mg/3 Ml) 3 ml NEB Q4H PRN PRN Reason: Cough Last Admin: 03/22/17 00:53 Dose: 3 ml Allopurinol (Zyloprim) 300 mg PO DAILY [facility] Last Admin: 03/19/17 08:05 Dose: 300 mg Furosemide (Lasix) 80 mg IVPUSH ONETIME ONE Stop: 03/21/17 17:01 Last Admin: 03/21/17 17:07 Dose: 80 mg Furosemide (Lasix) 60 mg IVPUSH ONETIME ONE Stop: 03/22/17 17:01 Heparin Sodium (Porcine) (Heparin Sodium) 5,000 units SUBCUT Q8H [facility] Last Admin: 03/17/17 06:09 Dose: 5,000 units Sodium Chloride (Normal Saline) 1,000 mls @ 150 mls/hr IV ASDIRECTED [facility] Last Admin: 03/17/17 02:48 Dose: 999 mls/hr Sodium Chloride (Normal Saline) 1,000 mls @ 999 mls/hr IV ASDIRECTED [facility] Last Admin: 03/17/17 02:48 Dose: 999 mls/hr Sodium Chloride (Normal Saline) 1,000 mls @ 250 mls/hr IV ASDIRECTED [facility] Last Admin: 03/17/17 04:00 Dose: 250 mls/hr Piperacillin Sod/Tazobactam (Sod 3.375 gm/ Sodium Chloride) 50 mls @ 100 mls/ hr IV Q6H [facility] Last Admin: 03/17/17 05:07 Dose: 100 mls/hr Vancomycin HCl 1 gm/ Sodium (Chloride) 250 mls @ 150 mls/hr IV Q24H [facility] Last Admin: 03/17/17 06:10 Dose: 150 mls/hr Linezolid 600 mg/ Premix 300 mls @ 300 mls/hr IV Q12H [facility] Last Admin: 03/20/17 08:35 Dose: 300 mls/hr Magnesium Sulfate 2 gm/ Premix 50 mls @ 25 mls/hr IV ONETIME ONE Stop: 03/17/17 13:59 Last Admin: 03/17/17 12:52 Dose: 25 mls/hr Sodium Chloride (Normal Saline) 1,000 mls @ 100 mls/hr IV ASDIRECTED [facility] Last Admin: 03/18/17 16:20 Dose: 100 mls/hr Sodium Chloride (Normal Saline) 1,000 mls @ 125 mls/hr IV ASDIRECTED [facility] Linezolid 600 mg/ Premix 300 mls @ 300 mls/hr IV Q12H [facility] Last Admin: 03/23/17 06:02 Dose: 300 mls/hr Insulin Aspart (Novolog) 0 unit SUBCUT BIDAC [facility] PRN Reason: Protocol Last Admin: 03/17/17 23:01 Dose: 2 units Insulin Human Lispro (Humalog) 0 unit SUBCUT BIDAC [facility] PRN Reason: Protocol Metoprolol Succinate (Toprol Xl) 100 mg PO DAILY [facility] Last Admin: 03/17/17 08:56 Dose: 100 mg Sodium Polystyrene Sulfonate (Kayexalate) 30 gm PO ONETIME ONE Stop: 03/17/17 12:36 Last Admin: 03/17/17 14:02 Dose: 30 gm Sodium Polystyrene Sulfonate (Kayexalate) 30 gm PO ONETIME ONE Stop: 03/18/17 09:31 Last Admin: 03/18/17 09:36 Dose: 30 gm Warfarin Sodium (Coumadin) 10 mg PO ASDIRECTED [facility] Warfarin Sodium (Coumadin) 5 mg PO ASDIRECTED [facility] Warfarin Sodium (Coumadin) 10 mg PO ASDIRECTED [facility] Warfarin Sodium (Coumadin) 10 mg PO MoTuWe@1300 [facility] Last Admin: 03/17/17 17:08 Dose: 10 mg Warfarin Sodium (Coumadin) 5 mg PO SuThFrSa@1300 [facility] Warfarin Sodium (Coumadin) 5 mg PO DAILY@1300 [facility] Last Admin: 03/18/17 12:15 Dose: 5 mg Warfarin Sodium (Coumadin) 5 mg PO ONETIME ONE Stop: 03/20/17 13:01 Last Admin: 03/20/17 12:08 Dose: 5 mg Warfarin Sodium (Coumadin) 5 mg PO ONETIME ONE Stop: 03/21/17 13:01 Last Admin: 03/21/17 13:34 Dose: 5 mg Warfarin Sodium (Coumadin) 10 mg PO ONETIME ONE Stop: 03/22/17 14:01 Last Admin: 03/22/17 14:07 Dose: 10 mg Warfarin Sodium (Coumadin) 5 mg PO ONETIME ONE Stop: 03/23/17 14:31 Last Admin: 03/23/17 16:45 Dose: 5 mg Warfarin Sodium (Coumadin) Confirm Administered Dose 5 mg .ROUTE .STK-MED ONE Stop: 03/23/17 16:40 Last Admin: 03/23/17 16:45 Dose: Not Given - Exam Quality Assessment: Supplemental Oxygen General: Alert, Oriented, Cooperative, No Acute Distress Neck: Supple Lungs: Normal Respiratory Effort, Crackles (both bases (mild) and rare upper lungs bilaterally ). No: Wheezing Cardiovascular: Regular Rate, Regular Rhythm, No Murmurs GI/Abdominal Exam: No Distention Extremities: Pedal Edema (pitting bilateral lower leg edema) Skin: Warm, Dry Psy/Mental Status: Alert, Normal Affect - Problem List Review Problem List Initiated/Reviewed/Updated: Yes - My Orders Last 24 Hours: My Active Orders 03/24/17 13:58 Furosemide [Lasix] 80 mg IVPUSH ONETIME ONE 03/25/17 05:00 BASIC METABOLIC PANEL,BMP [CHEM] Timed CBC W/O DIFF,HEMOGRAM [HEME] Timed (1) INR,PT,PROTHROMBIN TIME [COAG] Timed - Plan Plan:: ASSESSMENT AND PLAN CELLULITIS RIGHT LOWER EXTREMITY- cellulitis much improved, Unna boot in place -Blood cultures negative thus far -Continue Pip/Tazo today -Transition to Augmentin 875 one by mouth twice a day tomorrow -Saline lock IV BILATERAL PNEUMONIA - improving with current management, cultures negative so far. Fever has resolved, white blood cell count within normal range but he does continue to require significant supplemental oxygen. -Follow-up cultures -Continue doxycycline -Supplement oxygen ANEMIA - likely secondary to chronic disease as well as significant chronic kidney disease. Hemoglobin has responded well to transfusion yesterday. -Recheck hemoglobin in a.m. HYPERKALEMIA -resolved CHRONIC KIDNEY DISEASE STAGE III - creatinine increased slightly from recent baseline, continue to monitor. -Closely monitor urine output and renal function during hospital stay TYPE 2 DIABETES MELLITUS - blood sugar control has been acceptable. -4 times a day glucometers -Continue usual dose of long-acting insulin -Low-dose sliding scale NovoLog -NovoLog 15 units subcutaneous with each meal MAINTENANCE ISSUES -DVT prophylaxis; current therapy with warfarin should provide adequate DVT prophylaxis -GI prophylaxis; continue PPI therapy -Jacobo catheter; not indicated -Nutrition; consistent carb diet ADMISSION STATUS - Paul was admitted to inpatient status for management of cellulitis. His hospital stay has been prolonged by the development of a bilateral pneumonia isn't hypoxic respiratory failure as well as acute on chronic anemia. He needs to remain hospitalized for further management of the pneumonia and hypoxic respiratory failure but is stable to improving and does not require transfer to a higher level of care at this time. DISPOSITION - anticipate discharge to home after the hospital stay. Bin Pisano M.D.
[2017-03-24] MEDS ORDERED: Furosemide 100 MG/10 ML SDV IVPUSH ONE (14:15)
[2017-03-24] MEDS: Insulin Detemir 100 Units/ML 3 ML Pen SUBCUT SCH (21:50)
[2017-03-24] MEDS: Codeine/guaiFENesin 100mg-10 MG/5 ML Syrup 10 ML Cup PO PRN (21:55)
[2017-03-24] MEDS: Acetaminophen/HYDROcodone 325-5 MG Tab PO PRN (21:55)
[2017-03-24] MEDS: Pravastatin 20 MG Tab PO SCH (21:55)
[2017-03-25] MEDS: Doxycycline 100 MG in Sodium Chloride 0.9% 100 ML IV SCH (01:18)
[2017-03-25] MEDS: Piperacillin/Tazobactam/Dext 3.375 GM in Premix Bag 1 BAG IV SCH ×2 (05:19→12:48)
[2017-03-25] MEDS: Albuterol/Ipratropium 3.0-0.5 MG/3 ML Neb Soln NEB SCH ×4 (07:33→21:03)
[2017-03-25] MEDS: Insulin Aspart 100 Units/ML 3 ML Pen SUBCUT SCH ×7 (07:53→21:14)
[2017-03-25] MEDS: Levothyroxine 75 MCG Tab PO SCH (07:54)
[2017-03-25] MEDS: Pantoprazole 40 MG Tab.CR PO SCH (07:58)
[2017-03-25] MEDS: Furosemide 40 MG Tab PO SCH (07:58)
[2017-03-25] MEDS: Ferrous Sulfate 325 MG Tab PO SCH ×2 (07:59→16:28)
[2017-03-25] MEDS: Sodium Bicarbonate 650 MG Tab PO SCH ×2 (08:00→20:39)
[2017-03-25] MEDS: amLODIPine 5 MG Tab PO SCH (08:00)
[2017-03-25] MEDS: Magnesium Oxide 400 MG Tab PO SCH ×2 (08:00→20:39)
[2017-03-25] MEDS: Metoprolol Succinate 50 MG Tab.ER PO SCH ×2 (08:01→20:39)
[2017-03-25] MEDS: cloNIDine 0.1 MG Tab PO SCH ×2 (08:01→20:38)
[2017-03-25] MEDS: Aspirin 325 MG Tab.EC PO SCH (08:02)
[2017-03-25] MEDS: Allopurinol 300 MG Tab PO SCH (08:02)
--- NOTE | 2017-03-25 09:28 | PN ---
DATE OF SERVICE: 03/22/2017 The patient developed pneumonia evidently, and his discharge has been held. We will leave his Unna boot in place for the time being and monitor things daily. If he is here for more than 2 or 3 days, we will change the Unna boot prior to his eventual discharge. Brett Thomas MD /[id number]
--- NOTE | 2017-03-25 10:10 | PROC ---
DATE OF PROCEDURE: 03/21/2017 DIAGNOSIS: Venous stasis, right calf. PROCEDURE: Placement of Unna boot, right calf ([id number]). SUMMARY: The patient is likely to be discharged later today and the plan is to proceed with an Unna boot placement. He will have this changed at his home office in [place]. After the previous dressing had been removed, Unna boot was placed from the base of the toes up to the upper most calf. Over this, 4-inch Garfield wrap placed and tape applied and there were no other problems. Brett Thomas MD /[id number]
--- NOTE | 2017-03-25 11:25 | PN ---
DATE OF SERVICE: 03/25/2017 The patient continues to be somewhat dyspneic and has not received any more treatment for his pneumonia. He does not look like he will likely be discharged today and Unna boot in place. When he is discharged, we will replace the Unna boot at that time. Brett Thomas MD /[id number]
[2017-03-25] MEDS ORDERED: Sodium Chloride 0.65% Nasal Spray 45 ML Bottle NAS PRN (11:59)
--- NOTE | 2017-03-25 12:07 | PCM.PN ---
- General Info Date of Service: 03/25/17 Functional Status: Reports: Pain Controlled, Tolerating Diet - Review of Systems General: Reports: Weakness. Denies: Fever Pulmonary: Reports: Shortness of Breath Musculoskeletal: Reports: Leg Pain Systems Review Comment:: No acute events overnight. Still requiring supplemental oxygen. Feels a little bit less short of breath today and feels better overall. Did have a decent response to diuresis yesterday. He has not had any fevers. Kidney function slightly better today. - Patient Data Vitals - Most Recent: Last Vital Signs Temp 35.8 C 03/25/17 07:41 Pulse 67 03/25/17 10:52 Resp 16 03/25/17 07:41 BP 144/75 H 03/25/17 08:01 Pulse Ox 97 03/25/17 10:52 Weight - Most Recent: 138.391 kg I&O - Last 24 Hours: Intake & Output 03/24/17 03/25/17 03/25/17 22:59 06:59 14:59 Intake Total 555 760 360 Output Total 1750 1100 Balance -1195 -340 360 Lab Results Last 24 Hours: Laboratory Results - last 24 hr 03/23/17 03/25/17 03/25/17 Range/Units 07:45 05:00 05:00 WBC 5.1 (4.5-11.0) K/uL RBC 2.54 L (4.30-5.90) M/uL Hgb 7.6 L (12.0-15.0) g/dL Hct 25.1 L (40.0-54.0) % MCV 99 H (80-98) fL MCH 30 (27-31) pg MCHC 30 L (32-36) % Plt Count 141 L (150-400) K/uL PT 33.5 H (9.5-12.0) sec INR 2.99 H (0.80-1.20) Sodium (140-148) mmol/L Potassium (3.6-5.2) mmol/L Chloride (100-108) mmol/L Carbon Dioxide (21-32) mmol/L Anion Gap (5.0-14.0) mmol/L BUN (7-18) mg/dL Creatinine (0.8-1.3) mg/dL Est Cr Clr Drug Dosing mL/min Estimated GFR (MDRD) (>60) Glucose (74-106) mg/dL Calcium (8.5-10.1) mg/dL Blood Type O POSITIVE Gel Antibody Screen Negative Crossmatch See Detail 03/25/17 Range/Units 05:00 WBC (4.5-11.0) K/uL RBC (4.30-5.90) M/uL Hgb (12.0-15.0) g/dL Hct (40.0-54.0) % MCV (80-98) fL MCH (27-31) pg MCHC (32-36) % Plt Count (150-400) K/uL PT (9.5-12.0) sec INR (0.80-1.20) Sodium 141 (140-148) mmol/L Potassium 4.4 (3.6-5.2) mmol/L Chloride 107 (100-108) mmol/L Carbon Dioxide 27 (21-32) mmol/L Anion Gap 7.5 (5.0-14.0) mmol/L BUN 48 H (7-18) mg/dL Creatinine 3.0 H (0.8-1.3) mg/dL Est Cr Clr Drug Dosing 27.24 mL/min Estimated GFR (MDRD) 21 L (>60) Glucose 206 H (74-106) mg/dL Calcium 8.6 (8.5-10.1) mg/dL Blood Type Gel Antibody Screen Crossmatch [place] Results Last 24 Hours: Microbiology 03/21/17 12:36 Aerobic Blood Culture - Preliminary Blood - Venous - Lab Draw NO GROWTH AFTER 3 DAYS Anaerobic Blood Culture - Preliminary NO GROWTH AFTER 3 DAYS 03/21/17 12:30 Aerobic Blood Culture - Preliminary Blood - Arm, Right NO GROWTH AFTER 3 DAYS Anaerobic Blood Culture - Preliminary NO GROWTH AFTER 3 DAYS 03/21/17 13:51 Gram Stain - Final Sputum - Expectorated Respiratory Culture - Final NORMAL RESPIRATORY NATALY 2 DAYS Med Orders - Current: Current Medications Acetaminophen (Tylenol Extra Strength) 1,000 mg PO Q6H PRN PRN Reason: Pain Last Admin: 03/21/17 14:34 Dose: 1,000 mg Hydrocodone Bitart/Acetaminophen (Waldo 325-5 Mg) 1 tab PO Q4H PRN PRN Reason: Pain (moderate 4-6) Last Admin: 03/24/17 21:55 Dose: 1 tab Albuterol (Proventil Neb Soln) 2.5 mg NEB Q4H PRN PRN Reason: Dyspnea Albuterol/Ipratropium (Duoneb 3.0-0.5 Mg/3 Ml) 3 ml NEB QIDRT [facility] Last Admin: 03/25/17 10:51 Dose: 3 ml Allopurinol (Zyloprim) 150 mg PO DAILY [facility] Last Admin: 03/25/17 08:02 Dose: 150 mg Amlodipine Besylate (Norvasc) 5 mg PO DAILY [facility] Last Admin: 03/25/17 08:00 Dose: 5 mg Amoxicillin/Clavulanate Potassium (Augmentin 500 Mg\125 Mg) 1 tab PO Q12HR [facility] Aspirin (Ecotrin) 325 mg PO DAILY [facility] Last Admin: 03/25/17 08:02 Dose: 325 mg Benazepril HCl (Lotensin) 5 mg PO DAILY [facility] Last Admin: 03/25/17 08:01 Dose: 5 mg Benzonatate (Tessalon Perles) 200 mg PO TID PRN PRN Reason: Cough Last Admin: 03/22/17 05:00 Dose: 200 mg Clonidine HCl (Catapres) 0.2 mg PO BID [facility] Last Admin: 03/25/17 08:01 Dose: 0.2 mg Doxycycline Hyclate (Vibramycin) 100 mg PO Q12H [facility] Ferrous Sulfate (Ferrous Sulfate) 325 mg PO BIDMEALS [facility] Last Admin: 03/25/17 07:59 Dose: 325 mg Furosemide (Lasix) 80 mg IVPUSH ONETIME ONE Stop: 03/25/17 15:01 Furosemide (Lasix) 40 mg PO BID@0800,1600 [facility] Guaifenesin/Codeine Phosphate (Robitussin Ac) 10 ml PO Q4H PRN PRN Reason: Cough Last Admin: 03/24/17 21:55 Dose: 10 ml Piperacillin/Tazobactam/ (Dextrose 3.375 gm/ Premix) 50 mls @ 100 mls/hr IV Q6H [facility] Stop: 03/25/17 14:00 Last Admin: 03/25/17 05:19 Dose: 100 mls/hr Insulin Aspart (Novolog) 15 unit SUBCUT TIDAC [facility] Last Admin: 03/25/17 07:53 Dose: 15 units Insulin Aspart (Novolog) 0 unit SUBCUT 0730,1130,1630,2100 [facility] PRN Reason: Protocol Last Admin: 03/25/17 07:54 Dose: Not Given Insulin Detemir (Levemir) 30 unit SUBCUT BEDTIME [facility] Last Admin: 03/24/17 21:50 Dose: 30 units Levothyroxine Sodium (Levothyroxine) 75 mcg PO ACBREAKFAST [facility] Last Admin: 03/25/17 07:54 Dose: 75 mcg Magnesium Oxide (Magnesium Oxide) 400 mg PO BID [facility] Last Admin: 03/25/17 08:00 Dose: 400 mg Metoprolol Succinate (Toprol Xl) 100 mg PO BID [facility] Last Admin: 03/25/17 08:01 Dose: 100 mg Ondansetron HCl (Zofran Odt) 4 mg PO Q6H PRN PRN Reason: Nausea able to take PO Last Admin: 03/17/17 17:15 Dose: 4 mg Pantoprazole Sodium (Protonix) 40 mg PO ACBREAKFAST [facility] Last Admin: 03/25/17 07:58 Dose: 40 mg Pravastatin Sodium (Pravachol) 40 mg PO BEDTIME [facility] Last Admin: 03/24/17 21:55 Dose: 40 mg Senna/Docusate Sodium (Senna Plus) 1 tab PO BID PRN PRN Reason: Constipation Sodium Bicarbonate (Sodium Bicarbonate) 1,300 mg PO BID [facility] Last Admin: 03/25/17 08:00 Dose: 1,300 mg Sodium Chloride (Luce Nasal [place]) 1 ml DORYS Q2H PRN PRN Reason: Nasal Dryness Discontinued Medications Acetaminophen (Tylenol) 650 mg PO NOW ONE Stop: 03/17/17 03:27 Last Admin: 03/17/17 03:56 Dose: 650 mg Albuterol/Ipratropium (Duoneb 3.0-0.5 Mg/3 Ml) 3 ml NEB Q4H PRN PRN Reason: Cough Last Admin: 03/22/17 00:53 Dose: 3 ml Allopurinol (Zyloprim) 300 mg PO DAILY [facility] Last Admin: 03/19/17 08:05 Dose: 300 mg Furosemide (Lasix) 40 mg PO BID@0800,1600 [facility] Last Admin: 03/25/17 07:58 Dose: 40 mg Furosemide (Lasix) 80 mg IVPUSH ONETIME ONE Stop: 03/21/17 17:01 Last Admin: 03/21/17 17:07 Dose: 80 mg Furosemide (Lasix) 60 mg IVPUSH ONETIME ONE Stop: 03/22/17 17:01 Furosemide (Lasix) 80 mg IVPUSH ONETIME ONE Stop: 03/24/17 14:16 Last Admin: 03/24/17 14:47 Dose: 80 mg Heparin Sodium (Porcine) (Heparin Sodium) 5,000 units SUBCUT Q8H [facility] Last Admin: 03/17/17 06:09 Dose: 5,000 units Sodium Chloride (Normal Saline) 1,000 mls @ 150 mls/hr IV ASDIRECTED [facility] Last Admin: 03/17/17 02:48 Dose: 999 mls/hr Sodium Chloride (Normal Saline) 1,000 mls @ 999 mls/hr IV ASDIRECTED [facility] Last Admin: 03/17/17 02:48 Dose: 999 mls/hr Sodium Chloride (Normal Saline) 1,000 mls @ 250 mls/hr IV ASDIRECTED [facility] Last Admin: 03/17/17 04:00 Dose: 250 mls/hr Piperacillin Sod/Tazobactam (Sod 3.375 gm/ Sodium Chloride) 50 mls @ 100 mls/ hr IV Q6H [facility] Last Admin: 03/17/17 05:07 Dose: 100 mls/hr Vancomycin HCl 1 gm/ Sodium (Chloride) 250 mls @ 150 mls/hr IV Q24H [facility] Last Admin: 03/17/17 06:10 Dose: 150 mls/hr Linezolid 600 mg/ Premix 300 mls @ 300 mls/hr IV Q12H [facility] Last Admin: 03/20/17 08:35 Dose: 300 mls/hr Magnesium Sulfate 2 gm/ Premix 50 mls @ 25 mls/hr IV ONETIME ONE Stop: 03/17/17 13:59 Last Admin: 03/17/17 12:52 Dose: 25 mls/hr Sodium Chloride (Normal Saline) 1,000 mls @ 100 mls/hr IV ASDIRECTED [facility] Last Admin: 03/18/17 16:20 Dose: 100 mls/hr Doxycycline Hyclate 100 mg/ (Sodium Chloride) 100 mls @ 100 mls/hr IV Q12H [facility] Last Admin: 03/25/17 01:18 Dose: 100 mls/hr Sodium Chloride (Normal Saline) 1,000 mls @ 125 mls/hr IV ASDIRECTED [facility] Linezolid 600 mg/ Premix 300 mls @ 300 mls/hr IV Q12H [facility] Last Admin: 03/23/17 06:02 Dose: 300 mls/hr Insulin Aspart (Novolog) 0 unit SUBCUT BIDAC [facility] PRN Reason: Protocol Last Admin: 03/17/17 23:01 Dose: 2 units Insulin Human Lispro (Humalog) 0 unit SUBCUT BIDAC [facility] PRN Reason: Protocol Metoprolol Succinate (Toprol Xl) 100 mg PO DAILY [facility] Last Admin: 03/17/17 08:56 Dose: 100 mg Sodium Polystyrene Sulfonate (Kayexalate) 30 gm PO ONETIME ONE Stop: 03/17/17 12:36 Last Admin: 03/17/17 14:02 Dose: 30 gm Sodium Polystyrene Sulfonate (Kayexalate) 30 gm PO ONETIME ONE Stop: 03/18/17 09:31 Last Admin: 03/18/17 09:36 Dose: 30 gm Warfarin Sodium (Coumadin) 10 mg PO ASDIRECTED [facility] Warfarin Sodium (Coumadin) 5 mg PO ASDIRECTED [facility] Warfarin Sodium (Coumadin) 10 mg PO ASDIRECTED [facility] Warfarin Sodium (Coumadin) 10 mg PO MoTuWe@1300 [facility] Last Admin: 03/17/17 17:08 Dose: 10 mg Warfarin Sodium (Coumadin) 5 mg PO SuThFrSa@1300 [facility] Warfarin Sodium (Coumadin) 5 mg PO DAILY@1300 [facility] Last Admin: 03/18/17 12:15 Dose: 5 mg Warfarin Sodium (Coumadin) 5 mg PO ONETIME ONE Stop: 03/20/17 13:01 Last Admin: 03/20/17 12:08 Dose: 5 mg Warfarin Sodium (Coumadin) 5 mg PO ONETIME ONE Stop: 03/21/17 13:01 Last Admin: 03/21/17 13:34 Dose: 5 mg Warfarin Sodium (Coumadin) 10 mg PO ONETIME ONE Stop: 03/22/17 14:01 Last Admin: 03/22/17 14:07 Dose: 10 mg Warfarin Sodium (Coumadin) 5 mg PO ONETIME ONE Stop: 03/23/17 14:31 Last Admin: 03/23/17 16:45 Dose: 5 mg Warfarin Sodium (Coumadin) Confirm Administered Dose 5 mg .ROUTE .STK-MED ONE Stop: 03/23/17 16:40 Last Admin: 03/23/17 16:45 Dose: Not Given - Exam Quality Assessment: Supplemental Oxygen General: Alert, Oriented, Cooperative, No Acute Distress Neck: Supple Lungs: Clear to Auscultation, Normal Respiratory Effort, Crackles (rare both bases) Cardiovascular: Regular Rate, Regular Rhythm, Murmurs GI/Abdominal Exam: Soft, No Distention Extremities: Pedal Edema, Other (right leg in Unna boot) Skin: Warm, Dry Psy/Mental Status: Alert, Normal Affect - Problem List Review Problem List Initiated/Reviewed/Updated: Yes - My Orders Last 24 Hours: My Active Orders 03/25/17 10:15 Transfuse Red Blood Cells [COMM] Routine 03/25/17 11:59 Sodium Chloride 0.65% [Luce Nasal [place]] 1 ml DORYS Q2H PRN 03/25/17 12:15 Doxycycline [Vibramycin] 100 mg PO Q12H 03/25/17 15:00 Furosemide [Lasix] 80 mg IVPUSH ONETIME ONE 03/25/17 21:00 Amoxicillin/Clavulanate K [Augmentin 500 MG\125 MG] 1 tab PO Q12HR 03/26/17 05:00 BASIC METABOLIC PANEL,BMP [CHEM] Timed CBC W/O DIFF,HEMOGRAM [HEME] Timed (1) 03/26/17 08:00 Furosemide [Lasix] 40 mg PO BID@0800,1600 - Plan Plan:: ASSESSMENT AND PLAN CELLULITIS RIGHT LOWER EXTREMITY- cellulitis much improved, Unna boot in place -Blood cultures negative thus far -Transition to Augmentin with renal dosing -Saline lock IV BILATERAL PNEUMONIA - improving with current management, cultures negative so far. Still has oxygen but seems to be slowly improving. -Follow-up cultures -Continue doxycycline and Augmentin as above -Supplement oxygen ANEMIA - likely secondary to chronic disease as well as significant chronic kidney disease. Hemoglobin down below 8 again. -Transfuse 1 additional unit of packed red blood cells -Recheck hemoglobin in a.m. HYPERKALEMIA - resolved CHRONIC KIDNEY DISEASE STAGE III - creatinine improved slightly compared to yesterday. -Closely monitor urine output and renal function during hospital stay TYPE 2 DIABETES MELLITUS - blood sugar control has been acceptable. -4 times a day glucometers -Continue usual dose of long-acting insulin -Low-dose sliding scale NovoLog -NovoLog 15 units subcutaneous with each meal MAINTENANCE ISSUES -DVT prophylaxis; current therapy with warfarin should provide adequate DVT prophylaxis -GI prophylaxis; continue PPI therapy -Jacobo catheter; not indicated -Nutrition; consistent carb diet ADMISSION STATUS - Paul was admitted to inpatient status for management of cellulitis. His hospital stay has been prolonged by the development of a bilateral pneumonia isn't hypoxic respiratory failure as well as acute on chronic anemia. He needs to remain hospitalized for further management of the pneumonia and hypoxic respiratory failure but is stable to improving and does not require transfer to a higher level of care at this time. DISPOSITION - anticipate discharge to home after the hospital stay. Bin Pisano M.D.
[2017-03-25] MEDS ORDERED: Doxycycline 100 MG Cap PO ONE (14:00)
[2017-03-25] MEDS ORDERED: Furosemide 40 MG/4 ML VIAL IVPUSH ONE (15:00)
[2017-03-25] MEDS: Lactobacillus Rhamnosus GG (Probiotic) Cap PO SCH (20:38)
[2017-03-25] MEDS: Pravastatin 20 MG Tab PO SCH (20:39)
[2017-03-25] MEDS: Insulin Detemir 100 Units/ML 3 ML Pen SUBCUT SCH (21:03)
[2017-03-25] MEDS: Amoxicillin/Clavulanate K 500-125 MG Tab PO SCH (21:15)
[2017-03-26] MEDS: Doxycycline 100 MG Cap PO SCH ×2 (05:43→18:19)
[2017-03-26] MEDS: Albuterol/Ipratropium 3.0-0.5 MG/3 ML Neb Soln NEB SCH ×4 (07:19→21:35)
[2017-03-26] MEDS: Levothyroxine 75 MCG Tab PO SCH (07:56)
[2017-03-26] MEDS: Pantoprazole 40 MG Tab.CR PO SCH (07:56)
[2017-03-26] MEDS: Ferrous Sulfate 325 MG Tab PO SCH ×2 (07:58→17:12)
[2017-03-26] MEDS ORDERED: Furosemide 40 MG Tab PO SCH (08:00)
[2017-03-26] MEDS: Insulin Aspart 100 Units/ML 3 ML Pen SUBCUT SCH ×7 (08:10→21:49)
[2017-03-26] MEDS: amLODIPine 5 MG Tab PO SCH (08:14)
[2017-03-26] MEDS: Aspirin 325 MG Tab.EC PO SCH (08:14)
[2017-03-26] MEDS: Magnesium Oxide 400 MG Tab PO SCH ×2 (08:14→21:42)
[2017-03-26] MEDS: cloNIDine 0.1 MG Tab PO SCH ×2 (08:14→21:43)
[2017-03-26] MEDS: Lactobacillus Rhamnosus GG (Probiotic) Cap PO SCH ×2 (08:14→21:38)
[2017-03-26] MEDS: Sodium Bicarbonate 650 MG Tab PO SCH ×2 (08:15→21:40)
[2017-03-26] MEDS: Allopurinol 300 MG Tab PO SCH (08:15)
[2017-03-26] MEDS: Metoprolol Succinate 50 MG Tab.ER PO SCH ×2 (08:15→21:37)
--- NOTE | 2017-03-26 08:58 | PN ---
DATE OF SERVICE: 03/26/2017 SUBJECTIVE: Paul has been afebrile. He has an area on his right hip of specific swelling. He did develop pneumonia over the weekend. Continues to have occasional productive cough with yellow, blood-tinged sputum. He was okayed for home O2. REVIEW OF SYSTEMS: Remainder of review of systems negative for any pertinent positives and negatives. OBJECTIVE: GENERAL: Paul Epstein is a 66-year-old male. VITAL SIGNS: TPR is 98.2, 89, 18. Blood pressure 174/59. O2 saturations by pulse ox is 94% with 2 L of O2. HEENT: Negative. NECK: Supple. HEART: Regular rate and rhythm. LUNGS: Reveal decreased breath sounds in bases, left greater than right. ABDOMEN: Soft, nontender. EXTREMITIES: Right leg has Unna boot on, wrapped with [place] wrap. Swelling remains unchanged. ASSESSMENT: 1. Acute exasperation of chronic edema and cellulitis of right foot and calf. 2. Bilateral pneumonia. 3. Anemia. PLAN: 1. May take Unna boot off in shower after Bin Pisano M.D., has examined the patient and looked out right leg. Communication order written to call Brett Thomas M.D., to reapply Unna boot to right lower leg and foot. 2. Bin Pisano M.D., to evaluate right area of hip swelling. 3. We will evaluate p.r.n. or in the a.m. Babita Beltran PA-C /[id number]
[2017-03-26] MEDS: Amoxicillin/Clavulanate K 500-125 MG Tab PO SCH ×2 (10:52→21:39)
--- NOTE | 2017-03-26 12:25 | PCM.PN ---
- General Info Date of Service: 03/26/17 Functional Status: Reports: Pain Controlled, Tolerating Diet - Review of Systems General: Denies: Fever Pulmonary: Denies: Shortness of Breath Cardiovascular: Reports: Edema Musculoskeletal: Reports: Other (pain right lateral hip) Systems Review Comment:: no acute events overnight. He is down to 2 L of supplemental oxygen this morning. Shortness of breath seems like it has improved symptomatically. No fevers. He thinks his leg is better than at the time of admission but not back to normal. Unna boot changed today. - Patient Data Vitals - Most Recent: Last Vital Signs Temp 36.2 C 03/26/17 12:12 Pulse 78 03/26/17 12:12 Resp 18 03/26/17 12:12 BP 158/77 H 03/26/17 12:12 Pulse Ox 93 L 03/26/17 12:12 Weight - Most Recent: 137.892 kg I&O - Last 24 Hours: Intake & Output 03/25/17 03/26/17 03/26/17 22:59 06:59 14:59 Intake Total 510 700 Output Total 1325 500 Balance -815 200 Lab Results Last 24 Hours: Laboratory Results - last 24 hr 03/23/17 03/26/17 03/26/17 Range/Units 07:45 06:04 06:04 WBC 7.0 (4.5-11.0) K/uL RBC 2.94 L (4.30-5.90) M/uL Hgb 8.9 L (12.0-15.0) g/dL Hct 28.9 L (40.0-54.0) % MCV 98 (80-98) fL MCH 30 (27-31) pg MCHC 31 L (32-36) % Plt Count 176 (150-400) K/uL PT (9.5-12.0) sec INR (0.80-1.20) Sodium 143 (140-148) mmol/L Potassium 4.7 (3.6-5.2) mmol/L Chloride 106 (100-108) mmol/L Carbon Dioxide 26 (21-32) mmol/L Anion Gap 10.6 (5.0-14.0) mmol/L BUN 50 H (7-18) mg/dL Creatinine 2.7 H (0.8-1.3) mg/dL Est Cr Clr Drug Dosing 30.27 mL/min Estimated GFR (MDRD) 24 L (>60) Glucose 171 H (74-106) mg/dL Calcium 8.8 (8.5-10.1) mg/dL Blood Type O POSITIVE Gel Antibody Screen Negative Crossmatch See Detail 03/26/17 Range/Units 06:04 WBC (4.5-11.0) K/uL RBC (4.30-5.90) M/uL Hgb (12.0-15.0) g/dL Hct (40.0-54.0) % MCV (80-98) fL MCH (27-31) pg MCHC (32-36) % Plt Count (150-400) K/uL PT 21.7 H (9.5-12.0) sec INR 1.97 H (0.80-1.20) Sodium (140-148) mmol/L Potassium (3.6-5.2) mmol/L Chloride (100-108) mmol/L Carbon Dioxide (21-32) mmol/L Anion Gap (5.0-14.0) mmol/L BUN (7-18) mg/dL Creatinine (0.8-1.3) mg/dL Est Cr Clr Drug Dosing mL/min Estimated GFR (MDRD) (>60) Glucose (74-106) mg/dL Calcium (8.5-10.1) mg/dL Blood Type Gel Antibody Screen Crossmatch [place] Results Last 24 Hours: Microbiology 03/21/17 12:36 Aerobic Blood Culture - Preliminary Blood - Venous - Lab Draw NO GROWTH AFTER 4 DAYS Anaerobic Blood Culture - Preliminary NO GROWTH AFTER 4 DAYS 03/21/17 12:30 Aerobic Blood Culture - Preliminary Blood - Arm, Right NO GROWTH AFTER 4 DAYS Anaerobic Blood Culture - Preliminary NO GROWTH AFTER 4 DAYS Med Orders - Current: Current Medications Acetaminophen (Tylenol Extra Strength) 1,000 mg PO Q6H PRN PRN Reason: Pain Last Admin: 03/21/17 14:34 Dose: 1,000 mg Hydrocodone Bitart/Acetaminophen ([place] 325-5 Mg) 1 tab PO Q4H PRN PRN Reason: Pain (moderate 4-6) Last Admin: 03/24/17 21:55 Dose: 1 tab Albuterol (Proventil Neb Soln) 2.5 mg NEB Q4H PRN PRN Reason: Dyspnea Albuterol/Ipratropium (Duoneb 3.0-0.5 Mg/3 Ml) 3 ml NEB QIDRT [facility] Last Admin: 03/26/17 10:49 Dose: 3 ml Allopurinol (Zyloprim) 150 mg PO DAILY [facility] Last Admin: 03/26/17 08:15 Dose: 150 mg Amlodipine Besylate (Norvasc) 5 mg PO DAILY [facility] Last Admin: 03/26/17 08:14 Dose: 5 mg Amoxicillin/Clavulanate Potassium (Augmentin 500 Mg\125 Mg) 1 tab PO BID@1000, 2200 [facility] Last Admin: 03/26/17 10:52 Dose: 1 tab Aspirin (Ecotrin) 325 mg PO DAILY [facility] Last Admin: 03/26/17 08:14 Dose: 325 mg Benazepril HCl (Lotensin) 5 mg PO DAILY [facility] Last Admin: 03/26/17 08:15 Dose: 5 mg Benzonatate (Tessalon Perles) 200 mg PO TID PRN PRN Reason: Cough Last Admin: 03/22/17 05:00 Dose: 200 mg Clonidine HCl (Catapres) 0.2 mg PO BID [facility] Last Admin: 03/26/17 08:14 Dose: 0.2 mg Doxycycline Hyclate (Vibramycin) 100 mg PO Q12H [facility] Last Admin: 03/26/17 05:43 Dose: 100 mg Ferrous Sulfate (Ferrous Sulfate) 325 mg PO BIDMEALS [facility] Last Admin: 03/26/17 07:58 Dose: 325 mg Guaifenesin/Codeine Phosphate (Robitussin Ac) 10 ml PO Q4H PRN PRN Reason: Cough Last Admin: 03/24/17 21:55 Dose: 10 ml Insulin Aspart (Novolog) 15 unit SUBCUT TIDAC [facility] Last Admin: 03/26/17 12:06 Dose: 15 units Insulin Aspart (Novolog) 0 unit SUBCUT 0730,1130,1630,2100 [facility] PRN Reason: Protocol Last Admin: 03/26/17 12:07 Dose: 3 units Insulin Detemir (Levemir) 30 unit SUBCUT BEDTIME [facility] Last Admin: 03/25/17 21:03 Dose: 30 units Lactobacillus Rhamnosus (Culturelle) 1 cap PO BID [facility] Last Admin: 03/26/17 08:14 Dose: 1 cap Levothyroxine Sodium (Levothyroxine) 75 mcg PO ACBREAKFAST [facility] Last Admin: 03/26/17 07:56 Dose: 75 mcg Magnesium Oxide (Magnesium Oxide) 400 mg PO BID [facility] Last Admin: 03/26/17 08:14 Dose: 400 mg Metoprolol Succinate (Toprol Xl) 100 mg PO BID [facility] Last Admin: 03/26/17 08:15 Dose: 100 mg Ondansetron HCl (Zofran Odt) 4 mg PO Q6H PRN PRN Reason: Nausea able to take PO Last Admin: 03/17/17 17:15 Dose: 4 mg Pantoprazole Sodium (Protonix) 40 mg PO ACBREAKFAST [facility] Last Admin: 03/26/17 07:56 Dose: 40 mg Pravastatin Sodium (Pravachol) 40 mg PO BEDTIME [facility] Last Admin: 03/25/17 20:39 Dose: 40 mg Senna/Docusate Sodium (Senna Plus) 1 tab PO BID PRN PRN Reason: Constipation Sodium Bicarbonate (Sodium Bicarbonate) 1,300 mg PO BID [facility] Last Admin: 03/26/17 08:15 Dose: 1,300 mg Sodium Chloride ([place] Nasal [place]) 0 ml DORYS Q2H PRN PRN Reason: Nasal Dryness Discontinued Medications Acetaminophen (Tylenol) 650 mg PO NOW ONE Stop: 03/17/17 03:27 Last Admin: 03/17/17 03:56 Dose: 650 mg Albuterol/Ipratropium (Duoneb 3.0-0.5 Mg/3 Ml) 3 ml NEB Q4H PRN PRN Reason: Cough Last Admin: 03/22/17 00:53 Dose: 3 ml Allopurinol (Zyloprim) 300 mg PO DAILY [facility] Last Admin: 03/19/17 08:05 Dose: 300 mg Doxycycline Hyclate (Vibramycin) 100 mg PO ONETIME ONE Stop: 03/25/17 14:01 Last Admin: 03/25/17 13:59 Dose: 100 mg Furosemide (Lasix) 40 mg PO BID@0800,1600 [facility] Last Admin: 03/25/17 07:58 Dose: 40 mg Furosemide (Lasix) 80 mg IVPUSH ONETIME ONE Stop: 03/21/17 17:01 Last Admin: 03/21/17 17:07 Dose: 80 mg Furosemide (Lasix) 60 mg IVPUSH ONETIME ONE Stop: 03/22/17 17:01 Furosemide (Lasix) 80 mg IVPUSH ONETIME ONE Stop: 03/24/17 14:16 Last Admin: 03/24/17 14:47 Dose: 80 mg Furosemide (Lasix) 80 mg IVPUSH ONETIME ONE Stop: 03/25/17 15:01 Last Admin: 03/25/17 15:55 Dose: 80 mg Furosemide (Lasix) 40 mg PO BID@0800,1600 [facility] Last Admin: 03/26/17 07:58 Dose: 40 mg Heparin Sodium (Porcine) (Heparin Sodium) 5,000 units SUBCUT Q8H [facility] Last Admin: 03/17/17 06:09 Dose: 5,000 units Sodium Chloride (Normal Saline) 1,000 mls @ 150 mls/hr IV ASDIRECTED [facility] Last Admin: 03/17/17 02:48 Dose: 999 mls/hr Sodium Chloride (Normal Saline) 1,000 mls @ 999 mls/hr IV ASDIRECTED [facility] Last Admin: 03/17/17 02:48 Dose: 999 mls/hr Sodium Chloride (Normal Saline) 1,000 mls @ 250 mls/hr IV ASDIRECTED [facility] Last Admin: 03/17/17 04:00 Dose: 250 mls/hr Piperacillin Sod/Tazobactam (Sod 3.375 gm/ Sodium Chloride) 50 mls @ 100 mls/ hr IV Q6H [facility] Last Admin: 03/17/17 05:07 Dose: 100 mls/hr Vancomycin HCl 1 gm/ Sodium (Chloride) 250 mls @ 150 mls/hr IV Q24H [facility] Last Admin: 03/17/17 06:10 Dose: 150 mls/hr Linezolid 600 mg/ Premix 300 mls @ 300 mls/hr IV Q12H [facility] Last Admin: 03/20/17 08:35 Dose: 300 mls/hr Magnesium Sulfate 2 gm/ Premix 50 mls @ 25 mls/hr IV ONETIME ONE Stop: 03/17/17 13:59 Last Admin: 03/17/17 12:52 Dose: 25 mls/hr Sodium Chloride (Normal Saline) 1,000 mls @ 100 mls/hr IV ASDIRECTED [facility] Last Admin: 03/18/17 16:20 Dose: 100 mls/hr Piperacillin/Tazobactam/ (Dextrose 3.375 gm/ Premix) 50 mls @ 100 mls/hr IV Q6H [facility] Stop: 03/25/17 14:00 Last Admin: 03/25/17 12:48 Dose: 100 mls/hr Doxycycline Hyclate 100 mg/ (Sodium Chloride) 100 mls @ 100 mls/hr IV Q12H [facility] Last Admin: 03/25/17 01:18 Dose: 100 mls/hr Sodium Chloride (Normal Saline) 1,000 mls @ 125 mls/hr IV ASDIRECTED [facility] Linezolid 600 mg/ Premix 300 mls @ 300 mls/hr IV Q12H [facility] Last Admin: 03/23/17 06:02 Dose: 300 mls/hr Insulin Aspart (Novolog) 0 unit SUBCUT BIDAC [facility] PRN Reason: Protocol Last Admin: 03/17/17 23:01 Dose: 2 units Insulin Human Lispro (Humalog) 0 unit SUBCUT BIDAC [facility] PRN Reason: Protocol Metoprolol Succinate (Toprol Xl) 100 mg PO DAILY [facility] Last Admin: 03/17/17 08:56 Dose: 100 mg Sodium Polystyrene Sulfonate (Kayexalate) 30 gm PO ONETIME ONE Stop: 03/17/17 12:36 Last Admin: 03/17/17 14:02 Dose: 30 gm Sodium Polystyrene Sulfonate (Kayexalate) 30 gm PO ONETIME ONE Stop: 03/18/17 09:31 Last Admin: 03/18/17 09:36 Dose: 30 gm Warfarin Sodium (Coumadin) 10 mg PO ASDIRECTED [facility] Warfarin Sodium (Coumadin) 5 mg PO ASDIRECTED [facility] Warfarin Sodium (Coumadin) 10 mg PO ASDIRECTED [facility] Warfarin Sodium (Coumadin) 10 mg PO MoTuWe@1300 [facility] Last Admin: 03/17/17 17:08 Dose: 10 mg Warfarin Sodium (Coumadin) 5 mg PO SuThFrSa@1300 [facility] Warfarin Sodium (Coumadin) 5 mg PO DAILY@1300 [facility] Last Admin: 03/18/17 12:15 Dose: 5 mg Warfarin Sodium (Coumadin) 5 mg PO ONETIME ONE Stop: 03/20/17 13:01 Last Admin: 03/20/17 12:08 Dose: 5 mg Warfarin Sodium (Coumadin) 5 mg PO ONETIME ONE Stop: 03/21/17 13:01 Last Admin: 12/29/17 13:34 Dose: 5 mg Warfarin Sodium (Coumadin) 10 mg PO ONETIME ONE Stop: 03/22/17 14:01 Last Admin: 03/22/17 14:07 Dose: 10 mg Warfarin Sodium (Coumadin) 5 mg PO ONETIME ONE Stop: 03/23/17 14:31 Last Admin: 03/23/17 16:45 Dose: 5 mg Warfarin Sodium (Coumadin) Confirm Administered Dose 5 mg .ROUTE .STK-MED ONE Stop: 03/23/17 16:40 Last Admin: 03/23/17 16:45 Dose: Not Given - Exam Quality Assessment: Supplemental Oxygen General: Alert, Oriented, Cooperative, No Acute Distress Neck: Supple, JVD Lungs: Clear to Auscultation, Normal Respiratory Effort Cardiovascular: Regular Rate, Regular Rhythm GI/Abdominal Exam: No Distention Extremities: Pedal Edema, Increased Warmth (right medial ankle), Other ( lymphedema right leg) Psy/Mental Status: Alert, Normal Affect - Problem List Review Problem List Initiated/Reviewed/Updated: Yes - My Orders Last 24 Hours: My Active Orders 03/25/17 11:59 Sodium Chloride 0.65% [[place] Nasal [place]] 0 ml DORYS Q2H PRN 03/25/17 21:00 Lactobacillus Rhamnosus GG [Culturelle] 1 cap PO BID 03/25/17 22:00 Amoxicillin/Clavulanate K [Augmentin 500 MG\125 MG] 1 tab PO BID@1000,2200 03/26/17 06:00 Doxycycline [Vibramycin] 100 mg PO Q12H 03/26/17 13:00 Warfarin [Coumadin] 10 mg PO ONETIME ONE 03/26/17 15:00 Furosemide [Lasix] 80 mg IVPUSH ONETIME ONE 03/26/17 16:30 GLUCOSE POC LAB TO COLLECT [POC] QIDACANDBED 03/26/17 21:00 GLUCOSE POC LAB TO COLLECT [POC] QIDACANDBED 03/27/17 05:00 BASIC METABOLIC PANEL,BMP [CHEM] Timed HGB [HEMOGLOBIN] [HEME] Timed INR,PT,PROTHROMBIN TIME [COAG] Timed 03/27/17 08:00 Furosemide [Lasix] 40 mg PO BID@0800,1600 - Plan Plan:: ASSESSMENT AND PLAN CELLULITIS RIGHT LOWER EXTREMITY- cellulitis much improved, Unna boot changed today. -Blood cultures negative thus far -Transition to Augmentin with renal dosing -continue doxycycline -Saline lock IV BILATERAL PNEUMONIA - slowly improving but still requiring supplemental oxygen. Probable mild component of excess volume which has been responding nicely to diuresis. -Follow-up cultures -Continue doxycycline and Augmentin as above -Supplement oxygen ANEMIA - likely secondary to chronic disease as well as significant chronic kidney disease. hemoglobin stable since blood transfusion. -Recheck hemoglobin in a.m. CHRONIC KIDNEY DISEASE STAGE III - creatinine slightly better again today with diuresis. -Closely monitor urine output and renal function during hospital stay TYPE 2 DIABETES MELLITUS - blood sugar control has been acceptable. -4 times a day glucometers -Continue usual dose of long-acting insulin -Low-dose sliding scale NovoLog -NovoLog 15 units subcutaneous with each meal MAINTENANCE ISSUES -DVT prophylaxis; current therapy with warfarin should provide adequate DVT prophylaxis -GI prophylaxis; continue PPI therapy -Jacobo catheter; not indicated -Nutrition; consistent carb diet ADMISSION STATUS - Paul was admitted to inpatient status for management of cellulitis. His hospital stay has been prolonged by the development of a bilateral pneumonia isn't hypoxic respiratory failure as well as acute on chronic anemia. He needs to remain hospitalized for further management of the pneumonia and hypoxic respiratory failure but is stable to improving and does not require transfer to a higher level of care at this time. DISPOSITION - anticipate discharge to home after the hospital stay. Bin Pisano M.D.
[2017-03-26] MEDS ORDERED: Warfarin 5 MG Tab PO ONE (13:00)
[2017-03-26] MEDS ORDERED: Furosemide 40 MG/4 ML VIAL IVPUSH ONE (15:00)
[2017-03-26] MEDS: Acetaminophen/HYDROcodone 325-5 MG Tab PO PRN (21:35)
[2017-03-26] MEDS: Pravastatin 20 MG Tab PO SCH (21:41)
[2017-03-26] MEDS: Insulin Detemir 100 Units/ML 3 ML Pen SUBCUT SCH (21:44)
[2017-03-27] MEDS: Acetaminophen 500 MG Tab PO PRN (03:07)
[2017-03-27] MEDS: Doxycycline 100 MG Cap PO SCH (06:08)
[2017-03-27] MEDS: Levothyroxine 75 MCG Tab PO SCH (07:39)
[2017-03-27] MEDS: Albuterol/Ipratropium 3.0-0.5 MG/3 ML Neb Soln NEB SCH (07:39)
[2017-03-27] MEDS ORDERED: Furosemide 40 MG Tab PO SCH (08:00)
[2017-03-27] MEDS: Insulin Aspart 100 Units/ML 3 ML Pen SUBCUT SCH ×2 (08:19→08:20)
[2017-03-27] MEDS: Metoprolol Succinate 50 MG Tab.ER PO SCH (08:24)
[2017-03-27] MEDS: Allopurinol 300 MG Tab PO SCH (08:24)
[2017-03-27] MEDS: Lactobacillus Rhamnosus GG (Probiotic) Cap PO SCH (08:24)
[2017-03-27] MEDS: Pantoprazole 40 MG Tab.CR PO SCH (08:28)
[2017-03-27] MEDS: amLODIPine 5 MG Tab PO SCH (08:29)
[2017-03-27] MEDS: cloNIDine 0.1 MG Tab PO SCH (08:30)
[2017-03-27] MEDS: Sodium Bicarbonate 650 MG Tab PO SCH (08:30)
[2017-03-27] MEDS: Aspirin 325 MG Tab.EC PO SCH (08:31)
[2017-03-27] MEDS: Magnesium Oxide 400 MG Tab PO SCH (08:31)
[2017-03-27] MEDS: Ferrous Sulfate 325 MG Tab PO SCH (08:31)
--- NOTE | 2017-03-27 09:28 | PROC ---
DATE OF PROCEDURE: 03/26/2017 DIAGNOSIS: Venous stasis of right calf. PROCEDURE: Placement of Unna boot, right calf ([id number]). SUMMARY: The patient is here for continued treatment of the cellulitis in his foot along with pneumonia. He had the Unna boot taken off and the leg inspected per Dr. Pisano continued to look quite good with no active infection. New Unna boot was then placed from the base of the toes up to the uppermost calf and then 4-inch Garfield wrap over that, and there were no evident problems. Brett Thomas MD /[id number]
[2017-03-27] MEDS: Amoxicillin/Clavulanate K 500-125 MG Tab PO SCH (09:39)
--- NOTE | 2017-03-27 10:09 | PCM.DCSUM1 ---
Discharge Summary - Hospital Course Brief History: 66-year-old male with history of insulin-dependent diabetes mellitus, stage III kidney disease, coronary artery disease, chronic atrial fibrillation and lymphedema of the right lower leg who presented with right leg pain, fevers and chills. Workup in the emergency room revealed evidence for cellulitis of the right leg and he was admitted to the hospital for further management. - Discharge Data Discharge Date: 03/27/17 Discharge Disposition: Home, Self-Care 01 Condition: Good - Discharge Diagnosis/Problem(s) (1) Cellulitis of right leg SNOMED Code(s): 642215435 ICD Code: L03.115 - CELLULITIS OF RIGHT LOWER LIMB Status: Acute Current Visit: Yes (2) Sepsis SNOMED Code(s): 90555693 ICD Code: A41.9 - SEPSIS, UNSPECIFIED ORGANISM Status: Acute Current Visit: Yes Qualifiers: Sepsis type: sepsis due to unspecified organism Qualified Code(s): A41.9 - Sepsis, unspecified organism (3) Bilateral pneumonia SNOMED Code(s): 114263735 ICD Code: J18.9 - PNEUMONIA, UNSPECIFIED ORGANISM Status: Acute Current Visit: Yes Qualifiers: Pneumonia type: due to unspecified organism Lung location: lower lobe of lung Qualified Code(s): J18.9 - Pneumonia, unspecified organism (4) Acute respiratory failure with hypoxia SNOMED Code(s): 56591290 ICD Code: J96.01 - ACUTE RESPIRATORY FAILURE WITH HYPOXIA Status: Acute Current Visit: Yes (5) Hyperkalemia SNOMED Code(s): 80791104 ICD Code: E87.5 - HYPERKALEMIA Status: Acute Current Visit: Yes (6) CAD (coronary artery disease) SNOMED Code(s): 17353771 ICD Code: I25.10 - ATHSCL HEART DISEASE OF [place] CORONARY ARTERY W/O ANG PCTRS Status: Chronic Current Visit: Yes Qualifiers: Coronary Disease-Associated Artery/Lesion type: [place] artery [place] vs. transplanted heart: [place] heart Associated angina: without angina Qualified Code(s): I25.10 - Atherosclerotic heart disease of [place] coronary artery without angina pectoris (7) AF (atrial fibrillation) SNOMED Code(s): 47954346 ICD Code: I48.91 - UNSPECIFIED ATRIAL FIBRILLATION Status: Chronic Current Visit: Yes Qualifiers: Atrial fibrillation type: chronic Qualified Code(s): I48.2 - Chronic atrial fibrillation (8) DM (diabetes mellitus) SNOMED Code(s): 84939148 ICD Code: E11.9 - TYPE 2 DIABETES MELLITUS WITHOUT COMPLICATIONS Status: Chronic Current Visit: Yes Qualifiers: Diabetes mellitus type: type 2 Diabetes mellitus complication status: with unspecified complications Diabetes mellitus termite helper insulin use: with penitentiary use Qualified Code(s): E11.8 - Type 2 diabetes mellitus with unspecified complications; Z79.4 - assisted (current) use of insulin; Z79.4 - assisted ( current) use of insulin; Z79.4 - assisted (current) use of insulin; Z79.4 - assisted (current) use of insulin (9) CKD (chronic kidney disease), stage III SNOMED Code(s): 747803169 ICD Code: N18.3 - CHRONIC KIDNEY DISEASE, STAGE 3 (MODERATE) Status: Chronic Current Visit: Yes - Patient Summary/Data Operative Procedure(s) Performed: Application of pressure dressing to the right leg with Dr. Thomas. Unna boot application [address] Thomas Consults: Consultations 03/17/17 05:08 Consult to Physician [CONS] Routine Consulting Provider: Brett Thomasesy Call Completed to Consulting Physician: No OT Evaluation and Treatment [CONS] Routine Please Evaluate and Treat. OT Reason for Consult: Strengthening This query below is only for informational purposes and is not editable. Admission Diagnosis/Problem: Sepsis PT Evaluation and Treatment [CONS] Routine Please Evaluate and Treat. PT Reason for Consult: Strengthening This query below is only for informational purposes and is not editable. Admission Diagnosis/Problem: Sepsis 03/17/17 05:14 Consult to Pharmacy [CONS] Routine Comment: zosyn and vancomycin dosing. Thanks Physician Instructions: Quantity: 03/17/17 05:36 Consult to Physician [CONS] Routine Consulting Provider: Brett Thomasesy Call Completed to Consulting Physician: No Reason for Consult: wound on right foot Special Instructions: nursing will notifiy physician on morning rounds Hospital Course: Paul presented to the emergency room with right leg pain, fevers and chills. Workup in the emergency room revealed evidence for cellulitis of the right leg and he was admitted to the hospital for further management. at the time of admission his chronic medical problems appeared stable. He was started on vancomycin and Pip/Tazo for antibiotic coverage and cultures were obtained. He did receive some volume resuscitation at the time of admission and did have evidence for sepsis at the time of admission. on the morning of admission he was evaluated by the surgical team and a pressure dressing was applied to his right lower leg starting at the toes and working up to the knee. This was done to help manage the significant edema. Over the next 48 hours he did show some slow but steady improvement. His fevers settled down and clinically he was feeling better. His leg pain was decreasing and the sepsis resolved. With no MRSA isolated at T3 the vancomycin was discontinued and Pip/Tazo was continued. On hospital day 4 he was feeling well and discharged home was being considered. Unfortunately overnight between hospital day 4 and 5 he developed cough, fevers and progressive shortness of breath. Workup at that time revealed evidence for a bilateral pneumonia. Repeat cultures were obtained at this time. Doxycycline was added to his antibiotic coverage that included Pip/Tazo. He had hypoxic respiratory failure at the time requiring supplemental oxygen. He also developed evidence for congestive heart failure after the pneumonia had progressed over the first 24 hours. His respiratory status remained stable over the next few days but did not show much in the way of improvement. His creatinine slowly climbed after the respiratory compromise with a peak of 3.2. After the addition of the doxycycline his fever curve improved significantly and resolved. Respiratory status remained stagnant until diuresis was initiated. After several days of increased diuresis we were able to wean him off the supplemental oxygen. His creatinine also improved with the diuresis and is down to 2.6 on the day of discharge. The day before discharge we removed his Unna boot and reevaluated the leg. There is still some mild warmth over the medial portion of the right ankle but no significant erythema. He has mild drainage from between the toes, specifically toast 2 and 3. There is no significant redness or warmth in this area. I believe he is safe for outpatient management at this time. He is now off supplemental oxygen and the cellulitis appears to be progressing well. The plan is for one week of additional antibiotic therapy at this time. He will be on a combination of Amox/Clav and doxycycline. His Unna boot will remain in place until his follow-up with primary care next week. His INR has been therapeutic during the hospital stay other than a mild dip on the day of discharge down to 1.7. He did receive a slightly larger dose (10 mg) than his usual schedule (5 mg) on the day of discharge. - Patient Instructions Diet: Diabetic Diet Activity: As Tolerated Driving: May Drive Today Showering/Bathing: May Shower Notify Provider of: Fever, Increased Pain, Nausea and/or Vomiting Other/Special Instructions: 1. You were in the hospital for management of right leg cellulitis with sepsis syndrome. Your leg has been improving with the use of antibiotic therapy and an Unna boot to help manage the swelling. You have an Unna boot in place right now and this should be left in place until your follow- up next week. You may shower with this on but should cover it with a garbage bag and tape. I recommend antibiotic therapy with 2 different antibiotics. You should take both Augmentin and doxycycline twice daily with food for 7 more days. You may need additional antibiotics beyond 7 days but should discuss this with your regular doctor early next week. 2. During the hospital stay you developed a bilateral pneumonia. We were never able to determine the culprit bacteria. You have been improving with the above antibiotics and will have plenty of coverage from these antibiotics for the pneumonia. 3. You may resume your usual warfarin dosing starting tomorrow. You did receive 10 mg in the hospital today prior to discharge. 4. Please seek medical attention if you develop fever greater than 101, have severe pain in your right leg, increasing swelling in your right leg or if you suddenly become very short of breath or have difficulty breathing. - Discharge Plan Prescriptions/Med Rec: Amoxicillin/Clavulanate K [Augmentin 500-125 MG] 1 tab PO BID #14 tablet Doxycycline Calcium [IMW: Doxycycline] 100 mg PO BID #14 capsule Home Medications: Home Meds Acetaminophen 500 mg PO Q6H PRN 03/17/17 [History] Albuterol [Ventolin HFA] 03/17/17 [History] Allopurinol [Zyloprim] 300 mg PO DAILY 03/17/17 [History] Ascorbic Acid [Vitamin C] 500 mg PO ASDIRECTED 03/17/17 [History] Aspirin 325 mg PO DAILY 03/17/17 [History] Benazepril [Lotensin] 5 mg PO DAILY 03/17/17 [History] Cholecalciferol (Vitamin D3) [Vitamin D3] 10,000 unit PO DAILY 03/17/17 [History ] Ferrous Sulfate 324 mg PO BID 03/17/17 [History] Furosemide [Lasix] 40 mg PO BID 03/17/17 [History] Insulin Aspart [Novolog Flexpen] 15 units SUBCNJ TIDAC 03/17/17 [History] Insulin Glarg,Human.Rec.Analog [Lantus Solostar] 30 units SUBCNJ BEDTIME [History] Levothyroxine 75 mcg PO DAILY 03/17/17 [History] Metoprolol Succinate [Toprol XL 100mg] 100 mg PO BID 03/17/17 [History] Multivitamin [Multivitamins] 1 tab PO DAILY 03/17/17 [History] Omeprazole 20 mg PO DAILY 03/17/17 [History] Pravastatin [Pravachol] 40 mg PO DAILY 03/17/17 [History] Sodium Bicarbonate 1,300 mg PO BID 03/17/17 [History] Triamcinolone Acetonide [Kenalog 0.1% Crm] 1 appful TOP ASDIRECTED 03/17/17 [ History] Warfarin [Coumadin] 5 mg PO SUTHFRSA@1300 03/17/17 [History] amLODIPine [Norvasc] 5 mg PO DAILY 03/17/17 [History] cloNIDine HCl [Catapres] 0.2 mg PO BID 03/17/17 [History] Amoxicillin/Clavulanate K [Augmentin 500-125 MG] 1 tab PO BID #14 tablet [Rx] Doxycycline Calcium [IMW: Doxycycline] 100 mg PO BID #14 capsule 03/27/17 [Rx] Patient Handouts: Cellulitis, Adult, Doxycycline tablets or capsules Referrals: PCP,None [Primary Care Provider] - (follow-up with your regular doctor early next week) - Discharge Summary/Plan Comment DC Time >30 min.: Yes (40 - complex d/c, coordinating f/u) - Patient Data Vitals - Most Recent: Last Vital Signs Temp 36.4 C 03/27/17 07:00 Pulse 86 03/27/17 08:24 Resp 18 03/27/17 07:00 BP 182/63 H 03/27/17 08:30 Pulse Ox 95 03/27/17 08:05 Weight - Most Recent: 136.259 kg I&O - Last 24 hours: Intake & Output 01/03/18 01/04/18 01/04/18 22:59 06:59 14:59 Intake Total 1150 1000 360 Output Total 1925 575 700 Balance -775 425 -340 Lab Results - Last 24 hrs: Laboratory Results - last 24 hr 03/27/17 03/27/17 03/27/17 Range/Units 05:00 05:00 05:00 Hgb 8.6 L (12.0-15.0) g/dL PT 18.7 H (9.5-12.0) sec INR 1.71 H (0.80-1.20) Sodium 142 (140-148) mmol/L Potassium 5.3 H (3.6-5.2) mmol/L Chloride 106 (100-108) mmol/L Carbon Dioxide 27 (21-32) mmol/L Anion Gap 14.3 H (5.0-14.0) mmol/L BUN 52 H (7-18) mg/dL Creatinine 2.6 H (0.8-1.3) mg/dL Est Cr Clr Drug Dosing 31.43 mL/min Estimated GFR (MDRD) 25 L (>60) Glucose 247 H (74-106) mg/dL Calcium 8.7 (8.5-10.1) mg/dL POOL Results - Last 24 hrs: Microbiology 03/21/17 12:36 Aerobic Blood Culture - Final Blood - Venous - Lab Draw NO GROWTH AFTER 5 DAYS Anaerobic Blood Culture - Final NO GROWTH AFTER 5 DAYS 03/21/17 12:30 Aerobic Blood Culture - Final Blood - Arm, Right NO GROWTH AFTER 5 DAYS Anaerobic Blood Culture - Final NO GROWTH AFTER 5 DAYS Med Orders - Current: Current Medications Acetaminophen (Tylenol Extra Strength) 1,000 mg PO Q6H PRN PRN Reason: Pain Last Admin: 03/27/17 03:07 Dose: 1,000 mg Hydrocodone Bitart/Acetaminophen ([place] 325-5 Mg) 1 tab PO Q4H PRN PRN Reason: Pain (moderate 4-6) Last Admin: 03/26/17 21:35 Dose: 1 tab Albuterol (Proventil Neb Soln) 2.5 mg NEB Q4H PRN PRN Reason: Dyspnea Albuterol/Ipratropium (Duoneb 3.0-0.5 Mg/3 Ml) 3 ml NEB QIDRT JOHN Last Admin: 03/27/17 07:39 Dose: 3 ml Allopurinol (Zyloprim) 150 mg PO DAILY [facility] Last Admin: 03/27/17 08:24 Dose: 150 mg Amlodipine Besylate (Norvasc) 5 mg PO DAILY [facility] Last Admin: 03/27/17 08:29 Dose: 5 mg Amoxicillin/Clavulanate Potassium (Augmentin 500 Mg\125 Mg) 1 tab PO BID@1000, 2200 [facility] Last Admin: 03/27/17 09:39 Dose: 1 tab Aspirin (Ecotrin) 325 mg PO DAILY [facility] Last Admin: 03/27/17 08:31 Dose: 325 mg Benazepril HCl (Lotensin) 5 mg PO DAILY [facility] Last Admin: 03/27/17 08:29 Dose: 5 mg Benzonatate (Tessalon Perles) 200 mg PO TID PRN PRN Reason: Cough Last Admin: 03/22/17 05:00 Dose: 200 mg Clonidine HCl (Catapres) 0.2 mg PO BID [facility] Last Admin: 03/27/17 08:30 Dose: 0.2 mg Doxycycline Hyclate (Vibramycin) 100 mg PO Q12H [facility] Last Admin: 03/27/17 06:08 Dose: 100 mg Ferrous Sulfate (Ferrous Sulfate) 325 mg PO BIDMEALS [facility] Last Admin: 03/27/17 08:31 Dose: 325 mg Furosemide (Lasix) 40 mg PO BID@0800,1600 [facility] Last Admin: 03/27/17 08:30 Dose: 40 mg Guaifenesin/Codeine Phosphate (Robitussin Ac) 10 ml PO Q4H PRN PRN Reason: Cough Last Admin: 03/24/17 21:55 Dose: 10 ml Insulin Aspart (Novolog) 15 unit SUBCUT TIDAC [facility] Last Admin: 03/27/17 08:19 Dose: 15 units Insulin Aspart (Novolog) 0 unit SUBCUT 0730,1130,1630,2100 [facility] PRN Reason: Protocol Last Admin: 03/27/17 08:20 Dose: 2 units Insulin Detemir (Levemir) 30 unit SUBCUT BEDTIME [facility] Last Admin: 03/26/17 21:44 Dose: 30 units Lactobacillus Rhamnosus (Culturelle) 1 cap PO BID [facility] Last Admin: 03/27/17 08:24 Dose: 1 cap Levothyroxine Sodium (Levothyroxine) 75 mcg PO ACBREAKFAST [facility] Last Admin: 03/27/17 07:39 Dose: 75 mcg Magnesium Oxide (Magnesium Oxide) 400 mg PO BID [facility] Last Admin: 03/27/17 08:31 Dose: 400 mg Metoprolol Succinate (Toprol Xl) 100 mg PO BID [facility] Last Admin: 03/27/17 08:24 Dose: 100 mg Ondansetron HCl (Zofran Odt) 4 mg PO Q6H PRN PRN Reason: Nausea able to take PO Last Admin: 03/17/17 17:15 Dose: 4 mg Pantoprazole Sodium (Protonix) 40 mg PO ACBREAKFAST [facility] Last Admin: 03/27/17 08:28 Dose: 40 mg Pravastatin Sodium (Pravachol) 40 mg PO BEDTIME [facility] Last Admin: 03/26/17 21:41 Dose: 40 mg Senna/Docusate Sodium (Senna Plus) 1 tab PO BID PRN PRN Reason: Constipation Sodium Bicarbonate (Sodium Bicarbonate) 1,300 mg PO BID [facility] Last Admin: 03/27/17 08:30 Dose: 1,300 mg Sodium Chloride ([place] Nasal [place]) 0 ml DORYS Q2H PRN PRN Reason: Nasal Dryness Warfarin Sodium (Coumadin) 10 mg PO ONETIME ONE Stop: 03/27/17 13:01 Discontinued Medications Acetaminophen (Tylenol) 650 mg PO NOW ONE Stop: 03/17/17 03:27 Last Admin: 03/17/17 03:56 Dose: 650 mg Albuterol/Ipratropium (Duoneb 3.0-0.5 Mg/3 Ml) 3 ml NEB Q4H PRN PRN Reason: Cough Last Admin: 03/22/17 00:53 Dose: 3 ml Allopurinol (Zyloprim) 300 mg PO DAILY [facility] Last Admin: 03/19/17 08:05 Dose: 300 mg Doxycycline Hyclate (Vibramycin) 100 mg PO ONETIME ONE Stop: 03/25/17 14:01 Last Admin: 03/25/17 13:59 Dose: 100 mg Furosemide (Lasix) 40 mg PO BID@0800,1600 [facility] Last Admin: 03/25/17 07:58 Dose: 40 mg Furosemide (Lasix) 80 mg IVPUSH ONETIME ONE Stop: 03/21/17 17:01 Last Admin: 03/21/17 17:07 Dose: 80 mg Furosemide (Lasix) 60 mg IVPUSH ONETIME ONE Stop: 03/22/17 17:01 Furosemide (Lasix) 80 mg IVPUSH ONETIME ONE Stop: 03/24/17 14:16 Last Admin: 03/24/17 14:47 Dose: 80 mg Furosemide (Lasix) 80 mg IVPUSH ONETIME ONE Stop: 03/25/17 15:01 Last Admin: 03/25/17 15:55 Dose: 80 mg Furosemide (Lasix) 40 mg PO BID@0800,1600 [facility] Last Admin: 03/26/17 07:58 Dose: 40 mg Furosemide (Lasix) 80 mg IVPUSH ONETIME ONE Stop: 03/26/17 15:01 Last Admin: 03/26/17 15:36 Dose: 80 mg Heparin Sodium (Porcine) (Heparin Sodium) 5,000 units SUBCUT Q8H [facility] Last Admin: 03/17/17 06:09 Dose: 5,000 units Sodium Chloride (Normal Saline) 1,000 mls @ 150 mls/hr IV ASDIRECTED [facility] Last Admin: 03/17/17 02:48 Dose: 999 mls/hr Sodium Chloride (Normal Saline) 1,000 mls @ 999 mls/hr IV ASDIRECTED [facility] Last Admin: 03/17/17 02:48 Dose: 999 mls/hr Sodium Chloride (Normal Saline) 1,000 mls @ 250 mls/hr IV ASDIRECTED [facility] Last Admin: 03/17/17 04:00 Dose: 250 mls/hr Piperacillin Sod/Tazobactam (Sod 3.375 gm/ Sodium Chloride) 50 mls @ 100 mls/ hr IV Q6H [facility] Last Admin: 03/17/17 05:07 Dose: 100 mls/hr Vancomycin HCl 1 gm/ Sodium (Chloride) 250 mls @ 150 mls/hr IV Q24H [facility] Last Admin: 03/17/17 06:10 Dose: 150 mls/hr Linezolid 600 mg/ Premix 300 mls @ 300 mls/hr IV Q12H [facility] Last Admin: 03/20/17 08:35 Dose: 300 mls/hr Magnesium Sulfate 2 gm/ Premix 50 mls @ 25 mls/hr IV ONETIME ONE Stop: 03/17/17 13:59 Last Admin: 03/17/17 12:52 Dose: 25 mls/hr Sodium Chloride (Normal Saline) 1,000 mls @ 100 mls/hr IV ASDIRECTED [facility] Last Admin: 03/18/17 16:20 Dose: 100 mls/hr Piperacillin/Tazobactam/ (Dextrose 3.375 gm/ Premix) 50 mls @ 100 mls/hr IV Q6H [facility] Stop: 03/25/17 14:00 Last Admin: 03/25/17 12:48 Dose: 100 mls/hr Doxycycline Hyclate 100 mg/ (Sodium Chloride) 100 mls @ 100 mls/hr IV Q12H [facility] Last Admin: 03/25/17 01:18 Dose: 100 mls/hr Sodium Chloride (Normal Saline) 1,000 mls @ 125 mls/hr IV ASDIRECTED [facility] Linezolid 600 mg/ Premix 300 mls @ 300 mls/hr IV Q12H [facility] Last Admin: 03/23/17 06:02 Dose: 300 mls/hr Insulin Aspart (Novolog) 0 unit SUBCUT BIDAC [facility] PRN Reason: Protocol Last Admin: 03/17/17 23:01 Dose: 2 units Insulin Human Lispro (Humalog) 0 unit SUBCUT BIDAC [facility] PRN Reason: Protocol Metoprolol Succinate (Toprol Xl) 100 mg PO DAILY [facility] Last Admin: 03/17/17 08:56 Dose: 100 mg Sodium Polystyrene Sulfonate (Kayexalate) 30 gm PO ONETIME ONE Stop: 03/17/17 12:36 Last Admin: 03/17/17 14:02 Dose: 30 gm Sodium Polystyrene Sulfonate (Kayexalate) 30 gm PO ONETIME ONE Stop: 03/18/17 09:31 Last Admin: 03/18/17 09:36 Dose: 30 gm Warfarin Sodium (Coumadin) 10 mg PO ASDIRECTED [facility] Warfarin Sodium (Coumadin) 5 mg PO ASDIRECTED [facility] Warfarin Sodium (Coumadin) 10 mg PO ASDIRECTED [facility] Warfarin Sodium (Coumadin) 10 mg PO MoTuWe@1300 [facility] Last Admin: 03/17/17 17:08 Dose: 10 mg Warfarin Sodium (Coumadin) 5 mg PO SuThFrSa@1300 [facility] Warfarin Sodium (Coumadin) 5 mg PO DAILY@1300 [facility] Last Admin: 03/18/17 12:15 Dose: 5 mg Warfarin Sodium (Coumadin) 5 mg PO ONETIME ONE Stop: 03/20/17 13:01 Last Admin: 03/20/17 12:08 Dose: 5 mg Warfarin Sodium (Coumadin) 5 mg PO ONETIME ONE Stop: 03/21/17 13:01 Last Admin: 03/21/17 13:34 Dose: 5 mg Warfarin Sodium (Coumadin) 10 mg PO ONETIME ONE Stop: 03/22/17 14:01 Last Admin: 03/22/17 14:07 Dose: 10 mg Warfarin Sodium (Coumadin) 5 mg PO ONETIME ONE Stop: 03/23/17 14:31 Last Admin: 03/23/17 16:45 Dose: 5 mg Warfarin Sodium (Coumadin) Confirm Administered Dose 5 mg .ROUTE .STK-MED ONE Stop: 03/23/17 16:40 Last Admin: 03/23/17 16:45 Dose: Not Given Warfarin Sodium (Coumadin) 10 mg PO ONETIME ONE Stop: 03/26/17 13:01 Last Admin: 03/26/17 13:56 Dose: 10 mg - Exam Quality Assessment: Denies: Supplemental Oxygen General: Reports: Alert, Oriented, Cooperative, No Acute Distress ( on the morning) Lungs: Reports: Normal Respiratory Effort ((breast 1) GI/Abdominal Exam: Soft ([), No Distention Extremities: Pedal Edema (pitting edema left leg. Right leg with Unna boot. Chronic lymphedema of toes on right foot) *Q Meaningful Use (DIS) - VTE *Q VTE Criteria *Q: - Stroke *Q Stroke Criteria *Q: - AMI *Q AMI Criteria *Q:
--- NOTE | 2017-03-27 10:49 | PN ---
DATE OF SERVICE: 03/27/2017 SUBJECTIVE: Paul found that he is no longer on oxygen. He had an Unna boot put on yesterday. He states he is feeling good. Denies pain. His blood pressure has been elevated at 182/63, although he is asymptomatic. All 12 systems were reviewed and negative for any other pertinent positives and negatives. OBJECTIVE: GENERAL: Paul Epstein is a 66-year-old male. He is alert and orientated. SKIN: Warm and dry. Color is good. VITAL SIGNS: TPR 97.6, 86, 18, blood pressure 182/63. HEENT: Negative. NECK: Supple. HEART: Regular rate and rhythm. LUNGS: Clear. EXTREMITIES: Right leg reveals no change in the edema. Unna boot is intact. ASSESSMENT: 1. Acute exacerbation of chronic edema and cellulitis of right foot and calf. 2. Bilateral pneumonia. 3. Anemia. Hemoglobin of 8.6. PLAN: To follow up with his primary care provider as soon as he gets back home to [place]. Plan, discharge per hospitalist today. Babita Beltran PA-C /[id number]
[2017-03-27] MEDS ORDERED: Warfarin 5 MG Tab PO ONE (13:00)
== END 2017-03-27 12:15 | disposition home or self-care (01) | DRG 871 ==
LOC: JP.ED 02:08 → JP.2SS 05:04
PROVIDERS: ADMIT Family Medicine; ATTEND Internal Medicine
PROC: 2W1QX6Z Compression of Right Lower Leg using Pressure Dressing (ICD-10-PCS; principal; 2017-03-17)
PROC: 2W1QX6Z Compression of Right Lower Leg using Pressure Dressing (ICD-10-PCS; 2017-03-19)
PROC: 2W1QX6Z Compression of Right Lower Leg using Pressure Dressing (ICD-10-PCS; 2017-03-21)
PROC: 30233N1 Transfusion of Nonautologous Red Blood Cells into Peripheral Vein, Percutaneous Approach (ICD-10-PCS; 2017-03-23)
PROC: 30233N1 Transfusion of Nonautologous Red Blood Cells into Peripheral Vein, Percutaneous Approach (ICD-10-PCS; 2017-03-25)
PROC: 2W1QX6Z Compression of Right Lower Leg using Pressure Dressing (ICD-10-PCS; 2017-03-26)
DX: A41.9 Sepsis, unspecified organism (principal); J18.9 Pneumonia, unspecified organism; J96.01 Acute respiratory failure with hypoxia; L03.115 Cellulitis of right lower limb; I12.9 Hypertensive chronic kidney disease with stage 1 through stage 4 chronic kidney disease, or unspecified chronic kidney disease; N18.3 Chronic kidney disease, stage 3 (moderate); E11.22 Type 2 diabetes mellitus with diabetic chronic kidney disease; R10.32 Left lower quadrant pain; M79.604 Pain in right leg; R50.9 Fever, unspecified; Z79.4 Long term (current) use of insulin; E03.9 Hypothyroidism, unspecified; E87.5 Hyperkalemia; I25.10 Atherosclerotic heart disease of native coronary artery without angina pectoris; Z79.01 Long term (current) use of anticoagulants; I48.2 Chronic atrial fibrillation; Z79.82 Long term (current) use of aspirin; Z88.1 Allergy status to other antibiotic agents; R60.9 Edema, unspecified; I89.0 Lymphedema, not elsewhere classified; I87.8 Other specified disorders of veins; R05 Cough; Z99.81 Dependence on supplemental oxygen; I50.9 Heart failure, unspecified; D63.1 Anemia in chronic kidney disease
CPT/HCPCS: 36415; 71010 ×2; 74176; 80053; 81001; 82550; 83605; 83690; 83735; 85025; 85610; 87040 ×2; 96360; 96361; 99285; A9270; J7040 ×3; 36430; 71020; 71020-26; 71250; 80048; 82962; 84132; 85018; 85027; 86850; 86900; 86901; 86920; 86922; 87070; 87205; 87804; 94640; 97110-GP; 97162-GP; 97165-GO; 97530-GP; 97535-GP; 99284; J1644; J1940; J2020; J2543; J3370; J3475; J7030; J7050; J7620; P9016